=== PATIENT | female | born 1985 | race Caucasian/White ===

== ENCOUNTER 2016-03-14 13:09 | Outpatient (CLI) | payer MEDICAID ==
[2016-03-14 14:00] LABS: APPEARANCE,URINE CLOUDY; BILIRUBIN,URINE NEGATIVE (NEGATIVE); GLUCOSE, URINE 50 mg/dL (NEGATIVE); KETONES,URINE NEGATIVE (NEGATIVE); LEUKOCYTE ESTERASE,URINE LARGE (NEGATIVE); NITRITE,URINE NEGATIVE (NEGATIVE); PROTEIN,URINE 30 mg/dL (NEGATIVE); UROBILINOGEN,URINE NEGATIVE mg/dL (<2.0)
[2016-03-14 14:18] LABS: URINE BARBITURATES SCREEN NEGATIVE; URINE METHADONE SCREEN NEGATIVE; URINE PHENCYCLIDINE SCREEN NEGATIVE
[2016-03-14] MEDS ORDERED: HYDROXYZINE PAMOATE 50 MG CAPSULE ONE (14:27)
[2016-03-14] MEDS ORDERED: NITROFURANTOIN MONOHYD/M-CRYST 100 MG CAPSULE ONE (14:27)
--- NOTE | 2016-03-14 14:52 | Non Stress Test Report ---
Non Stress Test Datetime Report Generated by CPN: 03/14/2016 14:52 DEMOGRAPHIC EGA NST: 37.3 INDICATION Indication for Study: Ordered by Provider; Other MONITORING Monitor Explained: Monitor Explained; Test Explained; Patient Verbalized Understanding Time on Monitor: 03/14/2016 13:26 Time off Monitor: 03/14/2016 14:46 NST Duration: 80 NST INTERVENTIONS NST Interventions: PO Hydration; Reposition Patient Physician Notified NST: Dr. Kim BABY A: [id number] BABY A Movement : Present Contraction Frequency : irregular FHR Baseline : 145 Accelerations : 15X15 Decelerations : None Variability : Moderate 6-25bpm NST Review: Meets Criteria for Reactive NST NST Review and Verified By : EZIO Harley Results: Reactive NST REPORT Report Trigger: Send Report
[2016-03-14] MEDS ORDERED: NITROFURANTOIN MONOHYD/M-CRYST 100 MG CAPSULE PO ONE (15:00)
[2016-03-14] MEDS ORDERED: HYDROXYZINE PAMOATE 50 MG CAPSULE PO ONE (15:00)
--- NOTE | 2016-03-15 12:30 | L&D General Admission ---
General Admit Datetime Report Generated by CPN: 03/15/2016 12:30 INFORMATION EDC: 04/01/2016 00:00 (03/14/2016 13:15:Brooke Washburn RN) LMP: 05/26/2015 00:00 (03/14/2016 13:15:Brooke Washburn RN) : 4 (03/14/2016 13:15:Brooke Washburn RN) Para: 0 (03/14/2016 13:15:Brooke Washburn RN) Term: 0 (03/14/2016 13:15:Brooke Washburn RN) Spontaneous Abortions: 2 (03/14/2016 13:15:Brooke Washburn RN) Livin (03/14/2016 13:15:Brooke Washburn RN) Ectopic: 1 (03/14/2016 13:15:Brooke Washburn RN) Baby, Number in Womb: 1 (03/14/2016 13:15:Brooke Washburn RN) CARE Primary [employer]: [facility] (03/14/2016 13:15:Brooke Washburn RN) Adequate Care: Yes (03/14/2016 13:15:Brooke Washburn RN) Prepregnancy Weight (lb): 250 (03/14/2016 13:15:Brooke Washburn RN) Prepregnancy Weight (kg): 113.6 (03/14/2016 13:15:QS system process) Height (in): 70 (03/14/2016 13:22:QS system process) ALLERGIES Medication Allergy: Yes (03/14/2016 13:15:Brooke Washburn RN) Medication Allergies: Penicillins/SV/Anaphylaxis (03/14/2016); peanut/SV/Anaphylaxis (03/14/2016) (03/14/2016 13:22:QS system process) Latex Allergy: No Latex Allergies (03/14/2016 13:15:Brooke Washburn RN) Food Allergies: Peanut (03/14/2016 13:15:Brooke Washburn RN) Environmental Allergies: Peanut (03/14/2016 13:15:Brooke Washburn RN) COMMUNICATION Primary Language: South Sudanese (03/14/2016 13:15:Brooke Washburn RN) Medical Tx Preferred Language: [place] Sudanese (03/14/2016 13:15:Brooke Washburn RN) Communication Barrier(s): None (03/14/2016 13:15:Brooke Washburn RN) DRUG AND ALCOHOL USE Alcohol: No (03/14/2016 13:15:Brooke Washburn RN) Cigarettes: Never Smoker. [id number] (03/14/2016 13:15:Brooke Washburn RN) Marijuana: No (03/14/2016 13:15:Boroke Washburn RN) Cocaine: No (03/14/2016 13:15:Brooke Washburn RN) Other Illicit Drugs: No (03/14/2016 13:15:Brooke Washburn RN) VACCINE HISTORY Influenza Vaccine: Yes (03/14/2016 13:15:Brooke Washburn RN) Influenza Date: Jan 2016 (03/14/2016 13:15:Brooke Washburn RN) Pneumococcal Vaccine: No (03/14/2016 13:15:Brooke Washburn RN) Tetanus Vaccine: Uncertain (03/14/2016 13:15:Brooke Washburn RN) Tdap Vaccine: Uncertain (03/14/2016 13:15:Brooke Washburn RN) Hepatitis B Vaccine: Yes (03/14/2016 13:15:Brooke Washburn RN) Septic Tank Cleaner: [facility] (03/14/2016 13:15:Brooke Washburn RN) Feeding Preference: Breast (03/14/2016 13:15:Brooke Washburn RN) Benefit of Breast Feed Discussed: Yes (03/14/2016 13:15:Brooke Washburn RN) Circumcision: N/A (03/14/2016 13:15:Brooke Washburn RN) Classes Attended: No (03/14/2016 13:15:Brooke Washburn RN) Tubal Ligation: No (03/14/2016 13:15:Brooke Washburn RN) Tubal Authorization Signed: N/A (03/14/2016 13:15:Brooke Washburn RN) Consent: N/A (03/14/2016 13:15:Brooke Washburn RN) Consent Signed: N/A (03/14/2016 13:15:Brooke Washbunr RN) Pain Management Plans: Natural; Epidural (03/14/2016 13:15:Brooke Washburn RN) Plans for Labor and Delivery: None (03/14/2016 13:15:Brooke Washburn RN) Support Person: Dionte Von (03/14/2016 13:15:Brooke Washburn RN) Support Person Relationship: (03/14/2016 13:15:Brooke Washburn RN) Cultural/Spritual Practice: No (03/14/2016 13:15:Brooke Washburn RN) Spir/Cult Dietary Needs: No (03/14/2016 13:15:Brooke Washburn RN) LIVING SITUATION/DISCHARGE PLAN Living Arrangements: House (03/14/2016 13:15:Brooke Washburn RN) Adequate Access to:: Electric; Heat; Refrigeration; Plumbing/Running water; Phone; Transportation (03/14/2016 13:15:Brooke Washburn RN) Discharge Roving Or Yarn Color Checker Person: Dionte Longoria (03/14/2016 13:15:Brooke Washburn RN) Person to Help after Discharge: Dionte Longoria (03/14/2016 13:15:Brooke Washburn RN) Currently Using Commun Resources: No (03/14/2016 13:15:Brooke Washburn RN) Outside Agency/Land Title Examiner: No (03/14/2016 13:15:Brooke Washburn RN) Car Seat for Discharge: Yes (03/14/2016 13:15:Brooke Washburn RN) Adoption Requested: No (03/14/2016 13:15:Brooke Washburn RN) Pt Contact w/infant Post : N/A (03/14/2016 13:15:Brooke Washburn RN) LABS Blood Type: A Positive (03/14/2016 13:15:Brooke Washburn RN) Antibody Screen: Negative (03/14/2016 13:15:Brooke Washburn RN) Group Beta Strep: Negative (03/14/2016 13:15:Brooke Washburn RN) Gonorrhea: Negative (03/14/2016 13:15:Brooke Washburn RN) Chlamydia: Negative (03/14/2016 13:15:Brooke Washburn RN) RPR/VDRL: Nonreactive (03/14/2016 13:15:Brooke Washburn RN) Hepatitis B: Negative (03/14/2016 13:15:Brooke Washburn RN) Rubella: Immune (03/14/2016 13:15:Brooke Washburn RN) OB/PREVIOUS HISTORY LMP: 05/26/2015 00:00 (03/14/2016 13:15:Brooke Washburn RN) Current Procedures: Ultrasound (03/14/2016 13:15:Brooke Washburn RN) History of Previous : No (03/14/2016 13:15:Brooke Washburn RN) History of Gestational Diabetes: No (03/14/2016 13:15:Brooke Washburn RN) History of PIH: No (03/14/2016 13:15:Brooke Washburn RN) History of Incompetent Cervix: No (03/14/2016 13:15:Brooke Washburn RN) History of Placenta Previa/Abrup: No (03/14/2016 13:15:Brooke Washburn RN) History of Macrosomia: No (03/14/2016 13:15:Brooke Washburn RN) History of IUGR: No (03/14/2016 13:15:Brooke Washburn RN) History of Hemorrhage: No (03/14/2016 13:15:Brooke Washubrn RN) History of Loss/Stillborn: No (03/14/2016 13:15:Brooke Washburn RN) History of : No (03/14/2016 13:15:Brooke Washburn RN) History of D (Rh) Sensitization: No (03/14/2016 13:15:Brooke Washburn RN) History Recurrent Loss/Stillborn: No (03/14/2016 13:15:Brooke Washburn RN) History Depression/PP Depression: No (03/14/2016 13:15:Brooke Washburn RN) History of Uterine Anomaly/LOIDA: No (03/14/2016 13:15:Brooke Washburn RN) History of Infertility: No (03/14/2016 13:15:Brooke Washburn RN) History of ART Treatment: No (03/14/2016 13:15:Brooke Washburn RN) History of LOIDA: No (03/14/2016 13:15:Brooke Washburn RN) Comments Obstetrical History: 2006 Left salpingectomy - ruptured ectopic 2010 D_C (03/14/2016 13:15:Brooke Washburn RN) MEDICAL HISTORY Med Hx Diabetes: No (03/14/2016 13:15:Brooke Washburn RN) Med Hx Hypertension: No (03/14/2016 13:15:Brooke Washburn RN) Med Hx Heart Disease: No (03/14/2016 13:15:Brooke Washburn RN) Med Hx Autoimmune Disorder: No (03/14/2016 13:15:Brooke Washburn RN) Med Hx Kidney Disease/UTI: No (03/14/2016 13:15:Brooke Washburn RN) Med Hx Neurologic/Epilepsy: No (03/14/2016 13:15:Brooke Washburn RN) Med Hx Psychiatric Disorders: No (03/14/2016 13:15:Brooke Washburn RN) Med Hx Hepatitis/Liver Disease: No (03/14/2016 13:15:Brooke Washburn RN) Med Hx Varicosities/Phlebitis: No (03/14/2016 13:15:Brooke Washburn RN) Med Hx Thyroid Dysfunction: No (03/14/2016 13:15:Brooke Washburn RN) Med Hx Trauma/Violence: No (03/14/2016 13:15:Brooke Washburn RN) Med Hx Blood Transfusion: No (03/14/2016 13:15:Brooke Washburn RN) Med Hx Pulmonary (Asthma,TB): No (03/14/2016 13:15:Brooke Washburn RN) Med Hx Breast: No (03/14/2016 13:15:Brooke Washburn RN) Med Hx ALTERNATIVE ENERGY TECHNICIAN Surgery: No (03/14/2016 13:15:Brooke Washburn RN) Med Hx Hospitalization/Surgery: Yes (03/14/2016 13:15:Brooke Washburn RN) Med Hx Anesthetic Complications: No (03/14/2016 13:15:Brooke Washburn RN) Med Hx Abnormal Pap Smear: Yes (03/14/2016 13:15:Brooke Washburn RN) Other Medical Diseases: No (03/14/2016 13:15:Brooke Washburn RN) Med Hx Significant Family Hx: No (03/14/2016 13:15:Brooke Washburn RN) Details of Med/Surg Hx: abnormal pap [id number]; left salpingectomy - ruptured ectopic 2005 (03/14/2016 13:15:Brooke Washburn RN) INFECTIOUS HISTORY Inf Hx Gonorrhea: No (03/14/2016 13:15:Brooke Washburn RN) Inf Hx Chlamydia: No (03/14/2016 13:15:Brooke Washburn RN) Inf Hx Syphilis: No (03/14/2016 13:15:Brooke Washburn RN) Inf Hx HIV/AIDS: No (03/14/2016 13:15:Brooke Washburn RN) Inf Hx Human Papilloma Virus: No (03/14/2016 13:15:Brooke Washburn RN) Inf Hx Pt/Partner Genital Herpes: No (03/14/2016 13:15:Brooke Washburn RN) Inf Hx Tuberculosis/Exposure: No (03/14/2016 13:15:Brooke Washburn RN) Inf Hx Hepatitis B,C: No (03/14/2016 13:15:Brooke Washburn RN) Inf Hx Rash or Viral Illness: No (03/14/2016 13:15:Brooke Washburn RN) GENETIC HISTORY Gen Hx Age >=35 at JAMAL: No (03/14/2016 13:15:Brooke Washburn RN) Gen Hx Thalassemia: No (03/14/2016 13:15:Brooke Washburn RN) Gen Hx Congenital Heart Defect: No (03/14/2016 13:15:Brooke Washburn RN) Gen Hx Neural Tube Defect: No (03/14/2016 13:15:Brooke Washburn RN) Gen Hx Down's Syndrome: No (03/14/2016 13:15:Brooke Washburn RN) Gen Hx Low-Sachs: No (03/14/2016 13:15:Brooke Washburn RN) Gen Hx Lambret: No (03/14/2016 13:15:Brooke Washburn RN) Gen Hx Familial Dysautonomia: No (03/14/2016 13:15:Brooke Washburn RN) Gen Hx Sickle Cell Disease/Trait: No (03/14/2016 13:15:Brooke Washburn RN) Gen Hx Hemophilia/Blood Disorder: No (03/14/2016 13:15:Brooke Washburn RN) Gen Hx Muscular Dystrophy: No (03/14/2016 13:15:Brooke Washburn RN) Gen Hx Cystic Fibrosis: No (03/14/2016 13:15:Brooke Washburn RN) Gen Hx Huntingtons Chorea: No (03/14/2016 13:15:Brooke Washburn RN) Gen Hx Mental Retardation/Autism: No (03/14/2016 13:15:Brooke Washburn RN) Gen Hx Tested for Fragile X: No (03/14/2016 13:15:Brooke Washburn RN) Gen Hx Other Inher/Chromosomal: No (03/14/2016 13:15:Brooke Washburn RN) Gen Hx Maternal Metabolic DO: No (03/14/2016 13:15:Brooke Washburn RN) Gen Hx Pt Father or FOB Defect: No (03/14/2016 13:15:Brooke Washburn RN) Gen Hx Other Genetic History: No (03/14/2016 13:15:Brooke Washburn RN) Gen Hx Drugs/Meds since LMP: No (03/14/2016 13:15:Brooke Washburn RN) Details of Genetic History: current being monitored at [facility] for arrhythimia (bigeminy) - resolved, she states (03/14/2016 13:15:Brooke Washburn RN)
--- NOTE | 2016-03-15 12:30 | Antepartum Discharge Summary ---
Antepartum DC Datetime Report Generated by CPN: 03/15/2016 12:29 DIET/ACTIVITY/RESTRICTIONS Diet: Regular (03/14/2016 14:50:Brooke Washburn RN) Activity: Normal Activity (03/14/2016 14:50:Brooke Washburn, RN) TEACHING/INSTRUCTIONS/REFERRALS Instructions Given To: patient and friend (03/14/2016 14:50:Brooke Washburn RN) Instructions Understood: Patient Verbalized Understanding; Support Person Verbalized Understanding (03/14/2016 14:50:Brooke Washburn RN) Referrals: None (03/14/2016 14:50:Brooke Washburn RN) Educational Materials- Other: kick counyts and term pre cautions (03/14/2016 14:50:Brooke Washburn RN) DISCHARGE INFORMATION Discharge Date/Time: 03/14/2016 14:55 (03/14/2016 14:50:Brooke Washburn RN) Discharged To: Home (03/14/2016 14:50:Brooke Washburn RN) Discharge Provider Name: Dr. Kim (03/14/2016 14:50:Brooke Washburn RN) Accompanied By: friend (03/14/2016 14:50:Brooke Washburn RN) Discharge Method: Ambulatory (03/14/2016 14:50:Brooke Washburn RN) Condition: Stable (03/14/2016 14:50:Brooke Washburn RN) FOLLOW UP INFORMATION Follow Up With: [facility] (03/14/2016 14:50:Brooke Washburn RN) Follow Up On: Tomorrow (03/14/2016 14:50:Brooke Washburn RN) Follow Up Phone Number: [facility] - (03/14/2016 14:50:Brooke Washburn RN)
--- NOTE | 2016-03-15 12:30 | L&D Current Admission ---
Current Admit Datetime Report Generated by CPN: 03/15/2016 12:30 ADMISSION INFORMATION Chief Complaint: Contractions (03/14/2016 13:36:Brooke Washburn, EZIO)
--- NOTE | 2016-03-15 12:31 | L&D Discharge Summary ---
OB Discharge Summary Datetime Report Generated by CPN: 03/15/2016 12:31 DISCHARGE DIAGNOSIS Diagnosis/Symptoms: Other Diagnoses/Symptoms Other: false labor; UTI Gestation: 37.3 Number of Babies in Womb: 1 Parity: 0 DIET/ACTIVITY/RESTRICTIONS Diet: Regular Activity: Normal Activity TEACHING/INSTRUCTIONS/REFERRALS Instructions Given To: patient and friend Instructions Understood: Patient Verbalized Understanding; Support Person Verbalized Understanding Referrals: None Educational Materials- Other: kick counyts and term pre cautions DISCHARGE INFORMATION Discharge Date/Time: 03/14/2016 14:55 Discharged To: Home Discharge Provider Name: Dr. Kim Accompanied By: friend Discharge Method: Ambulatory Condition: Stable FOLLOW UP INFORMATION Follow Up With: [facility] Follow Up On: Tomorrow Follow Up Phone Number: [facility] -
--- NOTE | 2016-03-15 12:31 | L&D Flow Sheet ---
LD Flowsheet Datetime Report Generated by CPN: 03/15/2016 12:31 Datetime: 03/14/2016 14:46 Uterine Activity Monitor Mode: External; Palpation (Brooke Washburn RN) Quality: Mild (Brooke Washburn RN) Resting Tone (Palpate): Relaxed (Brooke Washburn RN) Contraction Comments: no contractions noted on monitor; patient reports abdominal tightening (Brooke Washburn RN) Assessment A Monitor Mode: External US (Brooke Washburn, RN) FHR Baseline Rate : 140 (Brooke Washburn, RN) FHR Baseline Changes: No Baseline Change (Brooke Washburn, RN) Variability: Moderate 6-25 bpm (Brooke Washburn, RN) Accelerations: 15X15 (Brooke Washburn, RN) Decelerations: None (Brooke Washburn, RN) Datetime: 03/14/2016 14:44 Medications Antibiotics: Other Antibiotic @ Nitrofurantoin 100 mg PO one tablet (Annotations: Given with food) (Brooke Washburn, RN) Datetime: 03/14/2016 14:40 Vaginal Exam Dilatation (cm): 1.0 (Brooke Washburn RN) Effacement (%): 40 (Brooke Washburn RN) Station: -2 (Brooke Washburn RN) Exam by: Sadiq Washburn RN (Brooke Washburn RN) Vaginal Bleeding: None (Brooke Washburn RN) Cervix, Consistency: Soft (Brooke Washburn RN) Cervix, Position: Midposition (Brooke Washburn RN) Datetime: 03/14/2016 14:33 Antiemetics/Antacids: Vistaril (mg) @ 50 one tablet (Brooke Washburn, RN) Datetime: 03/14/2016 14:30 Uterine Activity Monitor Mode: External; Palpation (Brooke Washburn, EZIO) Frequency (min): irregular (Brooke Washburn RN) Quality: Mild (Brooke aWshburn RN) Resting Tone (Palpate): Relaxed (Brooke Washburn RN) Contraction Comments: no contractions noted on monitor; patient reports abdominal tightening (Brooke Washburn, EZIO) Assessment A Monitor Mode: External US (Brooke Waterbury, RN) FHR Baseline Rate : 145 (Brooke Maddison, RN) FHR Baseline Changes: No Baseline Change (Brooke Waterbury, RN) Variability: Moderate 6-25 bpm (Brooke Maddison, RN) Accelerations: 15X15 (Brooke Waterbury, RN) Decelerations: None (Brooke Maddison, RN) Datetime: 03/14/2016 14:28 Vital Signs Stage of : Antepartum (Brooke Waterbury, RN) NBP Sys/Anabela/Mean (mmHg): 118 (QS system process) : 55 (QS system process) : 75 (QS system process) Pulse: 97 (QS system process) Respirations: 14 (Brooke Waterbury, RN) LaborFlag: Antepartum (QS system process) Datetime: 03/14/2016 14:15 Vital Signs Stage of : Antepartum (Brooke Washburn RN) Communication Communication: Call/Page Placed to Provider (Brooke Washburn RN) Notification Reason: Status Update; Status; Labor Status; Membrane Status; Uterine Activity; Maternal Vital Sign Change; Lab/Diagnostic Study (Brooke Washburn RN) Communication Comments: Dr. Kim called and notified of OB history inlcuding MFM monitoring for arrythmia, chief complaint of abdominal cramping/tightening, reactive NST, urinaylsis results: protein 30, glucose 50, small blood, large leukocytes, stable within normal limit vital signs, and irregular contraction pattern. Orders received to check cervical dilation and discharge patient home to self care. Also ordered to give Vistaril 50 mg PO one tablet and Macrobid 100 mg PO one tablet and have patient followup in provider's office for continued treatment of UTI. (Brooke Washburn RN) Datetime: 03/14/2016 14:00 Assessment A Monitor Mode: External US (Brooke Washburn RN) FHR Baseline Rate : 145 (Brooke Washburn RN) FHR Baseline Changes: No Baseline Change (Brooke Washburn RN) Variability: Moderate 6-25 bpm (Brooke Washburn RN) Accelerations: 15X15 (Brooke Washburn RN) Decelerations: None (Brooke Washburn RN) Comments: reports positive movement (Brooke Washburn RN) Datetime: 03/14/2016 13:58 Vital Signs Stage of : Antepartum (Brooke Medinaard, RN) NBP Sys/Anabela/Mean (mmHg): 107 (QS system process) : 58 (QS system process) : 79 (QS system process) Pulse: 101 (QS system process) Respirations: 16 (Brooke Maddison, RN) LaborFlag: Antepartum (QS system process) Datetime: 03/14/2016 13:36 Monitor Interventions for UA: Deepstep Adjusted (Brooke Waterbury, RN) Assessment A Monitor Mode: External US (Brooke Waterbury, ) Monitor Interventions for FHR: Ultrasound Adjusted ([facility], ) Variability: Moderate 6-25 bpm ([facility], ) Accelerations: 15X15 ([facility], ) Decelerations: None ([facility], ) Pain [facility] Pain Presence: Intermittent ([facility], [facility] Pain Type: Contraction; Pressure (Annotations: abdominal tightening ) ([facility], [facility] Pain Location: Abdomen; Back ([facility], [facility] Pain Goal: 1 ([facility], ) Pain Relief Measures: Comfort Measures ([facility], ) Pain Coping: Talking Through Contractions ([facility], ) Vaginal Bleeding: None ([facility], ) Maternal Assessment Level of Consciousness: Fully Conscious (Brooke Washburn, EZIO) DTR's/Clonus: DTRs 2+; No Clonus (Brooke Washburn, EZIO) Headache: Denies (Brooke Washburn, RN) Breath Sounds, Left: Clear and Equal (Brooke Washburn, RN) Breath Sounds, Right: Clear and Equal (Brooke Washburn, RN) Nausea/Vomiting: Denies (Brooke Washburn, EZIO) RUQ Epigastric Pain: Denies (Brooke Washburn, RN) Patient Care Oxygen Method: Room Air (Brooke Washburn, EZIO) Patient Position/Activity: Left Tilt; Low Fowlers (Brooke Washburn, EZIO) Comfort Measures: Breathing/Relaxation; Family Support (Brooke Washburn, EZIO) I/O Interventions: Clear Liquids Given (Brooke Washburn, EZIO) Teaching Instructional Method: Verbal; Patient Instructed; Family/Support Person Instructed; Verbalized Understanding (Brooke Washburn RN) Plan of Care: Plan of Care Discussed (Brooke Washburn RN) Unit Routine: [place] to Room; Call Christiansen; Bed; Visiting Policy; Waiting Areas; Phone/Cell Phone Use; Unit Personnel; Handwashing; Flu/Illness Precautions; Monitoring; IV Pumps; Safety/Fall Risk Prevention; Diet/Nutrition Services; Bathroom Privileges (Brooke Washburn RN) Pain Management: Pain Scale/Goals; Comfort Measures (Brooke Washburn RN) Related: Common Discomforts of ; Maternal Physical Changes; Maternal Emotional Changes; Nutrition; Hydration; Activity and Rest (Brooke Washburn RN) LaborFlag: Antepartum (QS system process) Datetime: 03/14/2016 13:29 Vital Signs Stage of : Antepartum (Brooke Washburn RN) NBP Sys/Anabela/Mean (mmHg): 116 (QS system process) : 65 (QS system process) : 84 (QS system process) Pulse: 110 (QS system process) Respirations: 14 (Brooke Washburn RN) LaborFlag: Antepartum (QS system process) Datetime: 03/14/2016 13:21 Vital Signs Stage of : Labor (Brooke Washburn, RN)
--- NOTE | 2016-03-16 06:12 | L&D Current Admission ---
Current Admit Datetime Report Generated by CPN: 03/16/2016 06:00 ADMISSION INFORMATION Chief Complaint: Contractions (03/14/2016 13:36:Brooke Washburn, EZIO)
--- NOTE | 2016-03-16 06:12 | L&D General Admission ---
General Admit Datetime Report Generated by CPN: 03/16/2016 06:00 INFORMATION Patient Age: 30 (02/23/2016 10:02:QS system process) EDC: 04/01/2016 00:00 (03/14/2016 13:15:Brooke Washburn RN) LMP: 05/26/2015 00:00 (03/14/2016 13:15:Brooke Washburn RN) : 4 (03/14/2016 13:15:Brooke Washburn RN) Para: 0 (03/14/2016 13:15:Brooke Washburn RN) Term: 0 (03/14/2016 13:15:Brooke Washburn RN) Spontaneous Abortions: 2 (03/14/2016 13:15:Brooke Washburn RN) Livin (03/14/2016 13:15:Brooke Washburn RN) Ectopic: 1 (03/14/2016 13:15:Brooke Washburn RN) Baby, Number in Womb: 1 (03/14/2016 13:15:Brooke Washburn RN) CARE [facility] (03/14/2016 13:15:Brooke Washburn RN) Adequate Care: Yes (03/14/2016 13:15:Brooke Washburn RN) Prepregnancy Weight (lb): 250 (03/14/2016 13:15:Brooke Washburn RN) Prepregnancy Weight (kg): 113.6 (03/14/2016 13:15:QS system process) Height (in): 70 (03/14/2016 13:22:QS system process) ALLERGIES Medication Allergy: Yes (03/14/2016 13:15:Brooke Washburn RN) Medication Allergies: Penicillins/SV/Anaphylaxis (03/14/2016); peanut/SV/Anaphylaxis (03/14/2016) (03/14/2016 13:22:QS system process) Latex Allergy: No Latex Allergies (03/14/2016 13:15:Brooke Washburn RN) Food Allergies: Peanut (03/14/2016 13:15:Brooke Washburn RN) Environmental Allergies: Peanut (03/14/2016 13:15:Brooke Washburn RN) COMMUNICATION Primary Language: Cay[place] Islander (03/14/2016 13:15:Brooke Washburn RN) Medical Tx Preferred Language: [place] Islander (03/14/2016 13:15:Brooke Washburn RN) Communication Barrier(s): None (03/14/2016 13:15:Brooke Washburn RN) DEMOGRAPHICS Address: [address] [place] [id number] (02/23/2016 10:02:QS system process) Zipcode: [address] (02/23/2016 10:02:QS system process) Home (02/23/2016 10:02:QS system process) SSN: [id number] (02/23/2016 10:02:QS system process) Next of Kin Name: DIONTE LONGORIA (02/23/2016 10:02:QS system process) Next of Kin (02/23/2016 10:02:QS system process) Next of Kin Relationship: SPO (02/23/2016 10:02:QS system process) Date of : 1985 (02/23/2016 10:02:QS system process) Marital Status: (02/23/2016 10:02:QS system process) Sex: Female (02/23/2016 10:02:QS system process) Race: (02/23/2016 10:02:QS system process) Ethnicity: Non- or (02/23/2016 10:02:QS system process) Hoahaoism: Methodist (02/23/2016 10:02:QS system process) DRUG AND ALCOHOL USE Alcohol: No (03/14/2016 13:15:Brooke Washburn RN) Cigarettes: Never Smoker. [id number] (03/14/2016 13:15:Brooke Washburn RN) Marijuana: No (03/14/2016 13:15:Brooke Washburn RN) Cocaine: No (03/14/2016 13:15:Brooke Washburn RN) Other Illicit Drugs: No (03/14/2016 13:15:Brooke Washburn RN) VACCINE HISTORY Influenza Vaccine: Yes (03/14/2016 13:15:Brooke Washburn RN) Influenza Date: Jan 2016 (03/14/2016 13:15:Brooke Washburn RN) Pneumococcal Vaccine: No (03/14/2016 13:15:Brooke Washburn RN) Tetanus Vaccine: Uncertain (03/14/2016 13:15:Brooke Washburn RN) Tdap Vaccine: Uncertain (03/14/2016 13:15:Brooke Washburn RN) Hepatitis B Vaccine: Yes (03/14/2016 13:15:Brooke Washburn RN) Scientific Software Developer: [facility] (03/14/2016 13:15:Brooke Washburn RN) Feeding Preference: Breast (03/14/2016 13:15:Brooke Washburn RN) Benefit of Breast Feed Discussed: Yes (03/14/2016 13:15:Brooke Washburn RN) Circumcision: N/A (03/14/2016 13:15:Brooke Washburn RN) Classes Attended: No (03/14/2016 13:15:Brooke Washburn RN) Tubal Ligation: No (03/14/2016 13:15:Brooke Washburn RN) Tubal Authorization Signed: N/A (03/14/2016 13:15:Brooke Washburn RN) Consent: N/A (03/14/2016 13:15:Brooke Washburn RN) Consent Signed: N/A (03/14/2016 13:15:Brooke Washburn RN) Pain Management Plans: Natural; Epidural (03/14/2016 13:15:Brooke Washburn RN) Plans for Labor and Delivery: None (03/14/2016 13:15:Brooke Washburn RN) Support Person: Dionte Longoria (03/14/2016 13:15:Brooke Washburn RN) Support Person Relationship: (03/14/2016 13:15:Brooke Washburn RN) Cultural/Spritual Practice: No (03/14/2016 13:15:Brooke Washburn RN) Spir/Cult Dietary Needs: No (03/14/2016 13:15:Brooke Washburn RN) LIVING SITUATION/DISCHARGE PLAN Living Arrangements: House (03/14/2016 13:15:Brooke Washburn RN) Adequate Access to:: Electric; Heat; Refrigeration; Plumbing/Running water; Phone; Transportation (03/14/2016 13:15:Brooke Washburn RN) Discharge Electronics Research Engineer Person: Dionte Longoria (03/14/2016 13:15:Brooke Washburn RN) Person to Help after Discharge: Dionte Hartden (03/14/2016 13:15:Brooke Washburn RN) Currently Using Commun Resources: No (03/14/2016 13:15:Brooke Washburn RN) Outside Agency/Manager Pulmonary: No (03/14/2016 13:15:Brooke Washburn RN) Car Seat for Discharge: Yes (03/14/2016 13:15:Brooke Washburn RN) Adoption Requested: No (03/14/2016 13:15:Brooke Washburn RN) Pt Contact w/infant Post : N/A (03/14/2016 13:15:Brooke Washburn RN) LABS Blood Type: A Positive (03/14/2016 13:15:Brooke Washburn RN) Antibody Screen: Negative (03/14/2016 13:15:Brooke Washburn RN) Group Beta Strep: Negative (03/14/2016 13:15:Brooke Washburn RN) Gonorrhea: Negative (03/14/2016 13:15:Brooke Washburn RN) Chlamydia: Negative (03/14/2016 13:15:Brooke Washburn RN) RPR/VDRL: Nonreactive (03/14/2016 13:15:Brooke Wsahburn RN) Hepatitis B: Negative (03/14/2016 13:15:Brooke Washburn RN) Rubella: Immune (03/14/2016 13:15:Brooke Washburn RN) OB/PREVIOUS HISTORY LMP: 05/26/2015 00:00 (03/14/2016 13:15:Brooke Washburn RN) Current Procedures: Ultrasound (03/14/2016 13:15:Brooke Washburn RN) History of Previous : No (03/14/2016 13:15:Brooke Washburn RN) History of Gestational Diabetes: No (03/14/2016 13:15:Brooke Washburn RN) History of PIH: No (03/14/2016 13:15:Brooke Washburn RN) History of Incompetent Cervix: No (03/14/2016 13:15:Brooke Washburn RN) History of Placenta Previa/Abrup: No (03/14/2016 13:15:Brooke Washburn RN) History of Macrosomia: No (03/14/2016 13:15:Brooke Washburn RN) History of IUGR: No (03/14/2016 13:15:Brooke Washburn RN) History of Hemorrhage: No (03/14/2016 13:15:Brooke Washburn RN) History of Loss/Stillborn: No (03/14/2016 13:15:Brooke Washburn RN) History of : No (03/14/2016 13:15:Brooke Washburn RN) History of D (Rh) Sensitization: No (03/14/2016 13:15:Brooke Washburn RN) History Recurrent Loss/Stillborn: No (03/14/2016 13:15:Brooke Washburn RN) History Depression/PP Depression: No (03/14/2016 13:15:Brooke Washburn RN) History of Uterine Anomaly/LOIDA: No (03/14/2016 13:15:Brooke Washburn RN) History of Infertility: No (03/14/2016 13:15:Brooke Washburn RN) History of ART Treatment: No (03/14/2016 13:15:Brooke Washburn RN) History of LOIDA: No (03/14/2016 13:15:Brooke Washburn RN) Comments Obstetrical History: 2006 Left salpingectomy - ruptured ectopic 2010 D_C (03/14/2016 13:15:Brooke Washburn RN) MEDICAL HISTORY Med Hx Diabetes: No (03/14/2016 13:15:Brooke Washburn RN) Med Hx Hypertension: No (03/14/2016 13:15:Brooke Washburn RN) Med Hx Heart Disease: No (03/14/2016 13:15:Brooke Washburn RN) Med Hx Autoimmune Disorder: No (03/14/2016 13:15:Brooke Washburn RN) Med Hx Kidney Disease/UTI: No (03/14/2016 13:15:Brooke Washburn RN) Med Hx Neurologic/Epilepsy: No (03/14/2016 13:15:Brooke Washburn RN) Med Hx Psychiatric Disorders: No (03/14/2016 13:15:Brooke Washburn RN) Med Hx Hepatitis/Liver Disease: No (03/14/2016 13:15:Brooke Washburn RN) Med Hx Varicosities/Phlebitis: No (03/14/2016 13:15:Brooke Washburn RN) Med Hx Thyroid Dysfunction: No (03/14/2016 13:15:Brooke Washburn RN) Med Hx Trauma/Violence: No (03/14/2016 13:15:Brooke Washburn RN) Med Hx Blood Transfusion: No (03/14/2016 13:15:Brooke Washburn RN) Med Hx Pulmonary (Asthma,TB): No (03/14/2016 13:15:Brooke Washburn RN) Med Hx Breast: No (03/14/2016 13:15:Brooke Washburn RN) Med Hx MANAGER MASSAGE DEPARTMENT Surgery: No (03/14/2016 13:15:Brooke Washburn RN) Med Hx Hospitalization/Surgery: Yes (03/14/2016 13:15:Brooke Washburn RN) Med Hx Anesthetic Complications: No (03/14/2016 13:15:Brooke Washburn RN) Med Hx Abnormal Pap Smear: Yes (03/14/2016 13:15:Brooke Washburn RN) Other Medical Diseases: No (03/14/2016 13:15:Brooke Washburn RN) Med Hx Significant Family Hx: No (03/14/2016 13:15:Brooke Washburn RN) Details of Med/Surg Hx: abnormal pap [id number]; left salpingectomy - ruptured ectopic 2006 (03/14/2016 13:15:Brooke Washburn RN) INFECTIOUS HISTORY Inf Hx Gonorrhea: No (03/14/2016 13:15:Brooke Washburn RN) Inf Hx Chlamydia: No (03/14/2016 13:15:Brooke Washburn RN) Inf Hx Syphilis: No (03/14/2016 13:15:Brooke Washburn RN) Inf Hx HIV/AIDS: No (03/14/2016 13:15:Brooke Washburn RN) Inf Hx Human Papilloma Virus: No (03/14/2016 13:15:Brooke Washburn RN) Inf Hx Pt/Partner Genital Herpes: No (03/14/2016 13:15:Brooke Washburn RN) Inf Hx Tuberculosis/Exposure: No (03/14/2016 13:15:Brooke Washburn RN) Inf Hx Hepatitis B,C: No (03/14/2016 13:15:Brooke Washburn RN) Inf Hx Rash or Viral Illness: No (03/14/2016 13:15:Brooke Washburn RN) GENETIC HISTORY Gen Hx Age >=35 at JAMAL: No (03/14/2016 13:15:Brooke Washburn RN) Gen Hx Thalassemia: No (03/14/2016 13:15:Brooke Washburn RN) Gen Hx Congenital Heart Defect: No (03/14/2016 13:15:Brooke Washburn RN) Gen Hx Neural Tube Defect: No (03/14/2016 13:15:Brooke Washburn RN) Gen Hx Down's Syndrome: No (03/14/2016 13:15:Brooke Washburn RN) Gen Hx Low-Sachs: No (03/14/2016 13:15:Brooke Washburn RN) Gen Hx Lambert: No (03/14/2016 13:15:Brooke Washburn RN) Gen Hx Familial Dysautonomia: No (03/14/2016 13:15:Brooke Washburn RN) Gen Hx Sickle Cell Disease/Trait: No (03/14/2016 13:15:Brooke Washburn RN) Gen Hx Hemophilia/Blood Disorder: No (03/14/2016 13:15:Brooke Washburn RN) Gen Hx Muscular Dystrophy: No (03/14/2016 13:15:Brooke Washburn RN) Gen Hx Cystic Fibrosis: No (03/14/2016 13:15:Brooke Washburn RN) Gen Hx Huntingtons Chorea: No (03/14/2016 13:15:Brooke Washburn RN) Gen Hx Mental Retardation/Autism: No (03/14/2016 13:15:Brooke Washburn RN) Gen Hx Tested for Fragile X: No (03/14/2016 13:15:Brooke Washburn RN) Gen Hx Other Inher/Chromosomal: No (03/14/2016 13:15:Brooke Washburn RN) Gen Hx Maternal Metabolic DO: No (03/14/2016 13:15:Brooke Washburn RN) Gen Hx Pt Father or FOB Defect: No (03/14/2016 13:15:Brooke Washburn RN) Gen Hx Other Genetic History: No (03/14/2016 13:15:Brooke Washburn RN) Gen Hx Drugs/Meds since LMP: No (03/14/2016 13:15:Brooke Washburn RN) Details of Genetic History: 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
--- NOTE | 2016-03-17 06:12 | L&D General Admission ---
General Admit Datetime Report Generated by N: 03/17/2016 06:00 INFORMATION Patient Age: 30 (02/23/2016 10:02:QS system process) EDC: 04/01/2016 00:00 (03/14/2016 13:15:Brooke Washburn RN) LMP: 05/26/2015 00:00 (03/14/2016 13:15:Brooke Washburn RN) : 4 (03/14/2016 13:15:Brooke Washburn RN) Para: 0 (03/14/2016 13:15:Brooke Washburn RN) Term: 0 (03/14/2016 13:15:Brooke Washburn RN) Spontaneous Abortions: 2 (03/14/2016 13:15:Brooke Washburn RN) Livin (03/14/2016 13:15:Brooke Washburn RN) Ectopic: 1 (03/14/2016 13:15:Brooke Washburn RN) Baby, Number in Womb: 1 (03/14/2016 13:15:Brooke Washburn RN) CARE Primary Presales Senior Specialist: [email or web address] (03/14/2016 13:15:Brooke Washburn RN) Adequate Care: Yes (03/14/2016 13:15:Brooke Washburn RN) Prepregnancy Weight (lb): 250 (03/14/2016 13:15:Brooke Washburn RN) Prepregnancy Weight (kg): 113.6 (03/14/2016 13:15:QS system process) Height (in): 70 (03/14/2016 13:22:QS system process) ALLERGIES Medication Allergy: Yes (03/14/2016 13:15:Brooke Washburn RN) Medication Allergies: Penicillins/SV/Anaphylaxis (03/14/2016); peanut/SV/Anaphylaxis (03/14/2016) (03/14/2016 13:22:QS system process) Latex Allergy: No Latex Allergies (03/14/2016 13:15:Brooke Washburn RN) Food Allergies: Peanut (03/14/2016 13:15:Brooke Washburn RN) Environmental Allergies: Peanut (03/14/2016 13:15:Brooke Washburn RN) COMMUNICATION Primary Language: Ghanaian (03/14/2016 13:15:Brooke Washburn RN) Medical Tx Preferred Language: Ghanaian (03/14/2016 13:15:Brooke Washburn RN) Communication Barrier(s): None (03/14/2016 13:15:Brooke Washburn RN) DEMOGRAPHICS Address: [address] [place] [id number] (02/23/2016 10:02:QS system process) Zipcode: [address] (02/23/2016 10:02:QS system process) Home (02/23/2016 10:02:QS system process) SSN: [id number] (02/23/2016 10:02:QS system process) Next of Kin Name: DIONTE LONGORIA (02/23/2016 10:02:QS system process) Next of Kin (02/23/2016 10:02:QS system process) Next of Kin Relationship: SPO (02/23/2016 10:02:QS system process) Date of : 1985 (02/23/2016 10:02:QS system process) Marital Status: (02/23/2016 10:02:QS system process) Sex: Female (02/23/2016 10:02:QS system process) Race: (02/23/2016 10:02:QS system process) Ethnicity: Non- or (02/23/2016 10:02:QS system process) Latter Day: Holiness (02/23/2016 10:02:QS system process) DRUG AND ALCOHOL USE Alcohol: No (03/14/2016 13:15:Brooke Washburn RN) Cigarettes: Never Smoker. [id number] (03/14/2016 13:15:Brooke Washburn RN) Marijuana: No (03/14/2016 13:15:Brooke Washburn RN) Cocaine: No (03/14/2016 13:15:Brooke Washburn RN) Other Illicit Drugs: No (03/14/2016 13:15:Brooke Washburn RN) VACCINE HISTORY Influenza Vaccine: Yes (03/14/2016 13:15:Brooke Washburn RN) Influenza Date: Jan 2016 (03/14/2016 13:15:Brooke Washburn RN) Pneumococcal Vaccine: No (03/14/2016 13:15:Brooke Washburn RN) Tetanus Vaccine: Uncertain (03/14/2016 13:15:Brooke Washburn RN) Tdap Vaccine: Uncertain (03/14/2016 13:15:Brooke Washburn RN) Hepatitis B Vaccine: Yes (03/14/2016 13:15:Brooke Washburn RN) Calibration Technician: [facility] (03/14/2016 13:15:Brooke Washburn RN) Feeding Preference: Breast (03/14/2016 13:15:Brooke Washburn RN) Benefit of Breast Feed Discussed: Yes (03/14/2016 13:15:Brooke Washburn RN) Circumcision: N/A (03/14/2016 13:15:Brooke Washburn RN) Classes Attended: No (03/14/2016 13:15:Brooke Washburn RN) Tubal Ligation: No (03/14/2016 13:15:Brooke Washburn RN) Tubal Authorization Signed: N/A (03/14/2016 13:15:Brooke Washburn RN) Consent: N/A (03/14/2016 13:15:Brooke Washburn RN) Consent Signed: N/A (03/14/2016 13:15:Brooke Washburn RN) Pain Management Plans: Natural; Epidural (03/14/2016 13:15:Brooke Washburn RN) Plans for Labor and Delivery: None (03/14/2016 13:15:Brooke Washburn RN) Support Person: Dionte Longoria (03/14/2016 13:15:Brooke Washburn RN) Support Person Relationship: (03/14/2016 13:15:Brooke Washburn RN) Cultural/Spritual Practice: No (03/14/2016 13:15:Brooke Washburn RN) Spir/Cult Dietary Needs: No (03/14/2016 13:15:Brooke Washburn RN) LIVING SITUATION/DISCHARGE PLAN Living Arrangements: House (03/14/2016 13:15:Brooke Washburn RN) Adequate Access to:: Electric; Heat; Refrigeration; Plumbing/Running water; Phone; Transportation (03/14/2016 13:15:Brooke Washburn RN) Discharge Machine Farmworker Person: Dionte Longoria (03/14/2016 13:15:Brooke Washburn RN) Person to Help after Discharge: Dionte Hartden (03/14/2016 13:15:Brooke Washburn RN) Currently Using Commun Resources: No (03/14/2016 13:15:Brooke Washbrun RN) Outside Agency/Fisheries Officer: No (03/14/2016 13:15:Brooke Washburn RN) Car Seat for Discharge: Yes (03/14/2016 13:15:Brooke Washburn RN) Adoption Requested: No (03/14/2016 13:15:Brooke Washburn RN) Pt Contact w/infant Post : N/A (03/14/2016 13:15:Brooke Washburn RN) LABS Blood Type: A Positive (03/14/2016 13:15:Brooke Washburn RN) Antibody Screen: Negative (03/14/2016 13:15:Brooke Washburn RN) Group Beta Strep: Negative (03/14/2016 13:15:Brooke Washburn RN) Gonorrhea: Negative (03/14/2016 13:15:Brooke Washburn RN) Chlamydia: Negative (03/14/2016 13:15:Brooke Washburn RN) RPR/VDRL: Nonreactive (03/14/2016 13:15:Brooke Washburn RN) Hepatitis B: Negative (03/14/2016 13:15:Brooke Washburn RN) Rubella: Immune (03/14/2016 13:15:Brooke Washburn RN) OB/PREVIOUS HISTORY LMP: 05/26/2015 00:00 (03/14/2016 13:15:Brooke Washburn RN) Current Procedures: Ultrasound (03/14/2016 13:15:Brooke Washburn RN) History of Previous : No (03/14/2016 13:15:Brooke Washburn RN) History of Gestational Diabetes: No (03/14/2016 13:15:Brooke Washburn RN) History of PIH: No (03/14/2016 13:15:Brooke Washburn RN) History of Incompetent Cervix: No (03/14/2016 13:15:Brooke Washburn RN) History of Placenta Previa/Abrup: No (03/14/2016 13:15:Brooke Washburn RN) History of Macrosomia: No (03/14/2016 13:15:Brooke Washburn RN) History of IUGR: No (03/14/2016 13:15:Brooke Washburn RN) History of Hemorrhage: No (03/14/2016 13:15:Brooke Washburn RN) History of Loss/Stillborn: No (03/14/2016 13:15:Brooke Washburn RN) History of : No (03/14/2016 13:15:Brooke Washburn RN) History of D (Rh) Sensitization: No (03/14/2016 13:15:Brooke Washburn RN) History Recurrent Loss/Stillborn: No (03/14/2016 13:15:Brooke Washburn RN) History Depression/PP Depression: No (03/14/2016 13:15:Brooke Washburn RN) History of Uterine Anomaly/LOIDA: No (03/14/2016 13:15:Brooke Washburn RN) History of Infertility: No (03/14/2016 13:15:Brooke Washburn RN) History of ART Treatment: No (03/14/2016 13:15:Brooke Washburn RN) History of LOIDA: No (03/14/2016 13:15:Brooke Washburn RN) Comments Obstetrical History: 2006 Left salpingectomy - ruptured ectopic 2010 D_C (03/14/2016 13:15:Brooke Washburn RN) MEDICAL HISTORY Med Hx Diabetes: No (03/14/2016 13:15:Brooke Washburn RN) Med Hx Hypertension: No (03/14/2016 13:15:Brooke Washburn RN) Med Hx Heart Disease: No (03/14/2016 13:15:Brooke Washburn RN) Med Hx Autoimmune Disorder: No (03/14/2016 13:15:Brooke Washburn RN) Med Hx Kidney Disease/UTI: No (03/14/2016 13:15:Brooke Washburn RN) Med Hx Neurologic/Epilepsy: No (03/14/2016 13:15:Brooke Washburn RN) Med Hx Psychiatric Disorders: No (03/14/2016 13:15:Brooke Washburn RN) Med Hx Hepatitis/Liver Disease: No (03/14/2016 13:15:Brooke Washburn RN) Med Hx Varicosities/Phlebitis: No (03/14/2016 13:15:Brooke Washburn RN) Med Hx Thyroid Dysfunction: No (03/14/2016 13:15:Brooke Washburn RN) Med Hx Trauma/Violence: No (03/14/2016 13:15:Brooke Washburn RN) Med Hx Blood Transfusion: No (03/14/2016 13:15:Brooke Washburn RN) Med Hx Pulmonary (Asthma,TB): No (03/14/2016 13:15:Brooke Washburn RN) Med Hx Breast: No (03/14/2016 13:15:Brooke Washburn RN) Med Hx COLLECTION ADMINISTRATOR Surgery: No (03/14/2016 13:15:Brooke Washburn RN) Med Hx Hospitalization/Surgery: Yes (03/14/2016 13:15:Brooke Washburn RN) Med Hx Anesthetic Complications: No (03/14/2016 13:15:Brooke Washburn RN) Med Hx Abnormal Pap Smear: Yes (03/14/2016 13:15:Brooke Washburn RN) Other Medical Diseases: No (03/14/2016 13:15:Brooke Washburn RN) Med Hx Significant Family Hx: No (03/14/2016 13:15:Brooke Washburn RN) Details of Med/Surg Hx: abnormal pap [id number]; left salpingectomy - ruptured ectopic 2006 (03/14/2016 13:15:Brooke Washburn RN) INFECTIOUS HISTORY Inf Hx Gonorrhea: No (03/14/2016 13:15:Brooke Washburn RN) Inf Hx Chlamydia: No (03/14/2016 13:15:Brooke Washburn RN) Inf Hx Syphilis: No (03/14/2016 13:15:Brooke Washburn RN) Inf Hx HIV/AIDS: No (03/14/2016 13:15:Brooke Washburn RN) Inf Hx Human Papilloma Virus: No (03/14/2016 13:15:Brooke Washburn RN) Inf Hx Pt/Partner Genital Herpes: No (03/14/2016 13:15:Brooke Washburn RN) Inf Hx Tuberculosis/Exposure: No (03/14/2016 13:15:Brooke Washburn RN) Inf Hx Hepatitis B,C: No (03/14/2016 13:15:Brooke Washburn RN) Inf Hx Rash or Viral Illness: No (03/14/2016 13:15:Brooke Washburn RN) GENETIC HISTORY Gen Hx Age >=35 at JAMAL: No (03/14/2016 13:15:Brooke Washburn RN) Gen Hx Thalassemia: No (03/14/2016 13:15:Brooke Washburn RN) Gen Hx Congenital Heart Defect: No (03/14/2016 13:15:Brooke Washburn RN) Gen Hx Neural Tube Defect: No (03/14/2016 13:15:Brooke Washburn RN) Gen Hx Down's Syndrome: No (03/14/2016 13:15:Brooke Washburn RN) Gen Hx Low-Sachs: No (03/14/2016 13:15:Brooke Washburn RN) Gen Hx Lambert: No (03/14/2016 13:15:Brooke Washburn RN) Gen Hx Familial Dysautonomia: No (03/14/2016 13:15:Brooke Washburn RN) Gen Hx Sickle Cell Disease/Trait: No (03/14/2016 13:15:Brooke Washburn RN) Gen Hx Hemophilia/Blood Disorder: No (03/14/2016 13:15:Brooke Washburn RN) Gen Hx Muscular Dystrophy: No (03/14/2016 13:15:Brooke Washburn RN) Gen Hx Cystic Fibrosis: No (03/14/2016 13:15:Brooke Washburn RN) Gen Hx Huntingtons Chorea: No (03/14/2016 13:15:Brooke Washburn RN) Gen Hx Mental Retardation/Autism: No (03/14/2016 13:15:Brooke Washburn RN) Gen Hx Tested for Fragile X: No (03/14/2016 13:15:Brooke Washburn RN) Gen Hx Other Inher/Chromosomal: No (03/14/2016 13:15:Brooke Washburn RN) Gen Hx Maternal Metabolic DO: No (03/14/2016 13:15:Brooke Washburn RN) Gen Hx Pt Father or FOB Defect: No (03/14/2016 13:15:Brooke Washburn RN) Gen Hx Other Genetic History: No (03/14/2016 13:15:Brooke Washburn RN) Gen Hx Drugs/Meds since LMP: No (03/14/2016 13:15:Brooke Washburn RN) Details of Genetic History: 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
--- NOTE | 2016-03-17 06:12 | L&D Current Admission ---
Current Admit Datetime Report Generated by CPN: 03/17/2016 06:00 ADMISSION INFORMATION Chief Complaint: Contractions (03/14/2016 13:36:Brooke Washburn, EZIO)
--- NOTE | 2016-03-18 06:16 | L&D General Admission ---
General Admit Datetime Report Generated by CPN: 03/18/2016 06:00 INFORMATION Patient Age: 30 (02/23/2016 10:02:QS system process) EDC: 04/01/2016 00:00 (03/14/2016 13:15:Brooke Washburn RN) LMP: 05/26/2015 00:00 (03/14/2016 13:15:Brooke Washburn RN) : 4 (03/14/2016 13:15:Brooke Washburn RN) Para: 0 (03/14/2016 13:15:Brooke Washburn RN) Term: 0 (03/14/2016 13:15:Brooke Washburn RN) Spontaneous Abortions: 2 (03/14/2016 13:15:Brooke Washburn RN) Livin (03/14/2016 13:15:Brooke Washburn RN) Ectopic: 1 (03/14/2016 13:15:Brooke Washburn RN) Baby, Number in Womb: 1 (03/14/2016 13:15:Brooke Washburn RN) CARE Primary Clinical Law Professor: [facility] (03/14/2016 13:15:Brooke Washburn RN) Adequate Care: Yes (03/14/2016 13:15:Brooke Washburn RN) Prepregnancy Weight (lb): 250 (03/14/2016 13:15:Brooke Washburn RN) Prepregnancy Weight (kg): 113.6 (03/14/2016 13:15:QS system process) Height (in): 70 (03/14/2016 13:22:QS system process) ALLERGIES Medication Allergy: Yes (03/14/2016 13:15:Brooke Washburn RN) Medication Allergies: Penicillins/SV/Anaphylaxis (03/14/2016); peanut/SV/Anaphylaxis (03/14/2016) (03/14/2016 13:22:QS system process) Latex Allergy: No Latex Allergies (03/14/2016 13:15:Brooke Washburn RN) Food Allergies: Peanut (03/14/2016 13:15:Brooke Washburn RN) Environmental Allergies: Peanut (03/14/2016 13:15:Brooke Washburn RN) COMMUNICATION Primary Language: Guinean (03/14/2016 13:15:Brooke Washburn RN) Medical Tx Preferred Language: Guinean (03/14/2016 13:15:Brooke Washburn RN) Communication Barrier(s): None (03/14/2016 13:15:Brooke Washburn RN) DEMOGRAPHICS Address: [address] [place] [id number] (02/23/2016 10:02:QS system process) Zipcode: [id number] (02/23/2016 10:02:QS system process) Home (02/23/2016 10:02:QS system process) SSN: [id number] (02/23/2016 10:02:QS system process) Next of Kin Name: DIONTE LONGORIA (02/23/2016 10:02:QS system process) Next of Kin (02/23/2016 10:02:QS system process) Next of Kin Relationship: SPO (02/23/2016 10:02:QS system process) Date of : 1985 (02/23/2016 10:02:QS system process) Marital Status: (02/23/2016 10:02:QS system process) Sex: Female (02/23/2016 10:02:QS system process) Race: (02/23/2016 10:02:QS system process) Ethnicity: Non- or (02/23/2016 10:02:QS system process) Anglican: Catholic (02/23/2016 10:02:QS system process) DRUG AND ALCOHOL USE Alcohol: No (03/14/2016 13:15:Brooke Washburn RN) Cigarettes: Never Smoker. [id number] (03/14/2016 13:15:Brooke Washburn RN) Marijuana: No (03/14/2016 13:15:Brooke Washburn RN) Cocaine: No (03/14/2016 13:15:Brooke Washburn RN) Other Illicit Drugs: No (03/14/2016 13:15:Brooke Washburn RN) VACCINE HISTORY Influenza Vaccine: Yes (03/14/2016 13:15:Brooke Washburn RN) Influenza Date: Jan 2016 (03/14/2016 13:15:Brooke Washburn RN) Pneumococcal Vaccine: No (03/14/2016 13:15:Brooke Washburn RN) Tetanus Vaccine: Uncertain (03/14/2016 13:15:Brooke Washburn RN) Tdap Vaccine: Uncertain (03/14/2016 13:15:Brooke Washburn RN) Hepatitis B Vaccine: Yes (03/14/2016 13:15:Brooke Washburn RN) Bank Worker: [facility] (03/14/2016 13:15:Brooke Washburn RN) Feeding Preference: Breast (03/14/2016 13:15:Brooke Washburn RN) Benefit of Breast Feed Discussed: Yes (03/14/2016 13:15:Brooke Washburn RN) Circumcision: N/A (03/14/2016 13:15:Brooke Washburn RN) Classes Attended: No (03/14/2016 13:15:Brooke Washburn RN) Tubal Ligation: No (03/14/2016 13:15:Brooke Washburn RN) Tubal Authorization Signed: N/A (03/14/2016 13:15:Brooke Washburn RN) Consent: N/A (03/14/2016 13:15:Brooke Washburn RN) Consent Signed: N/A (03/14/2016 13:15:Brooke Washburn RN) Pain Management Plans: Natural; Epidural (03/14/2016 13:15:Brooke Washburn RN) Plans for Labor and Delivery: None (03/14/2016 13:15:Brooke Washburn RN) Support Person: Dionte Longoria (03/14/2016 13:15:Brooke Washburn RN) Support Person Relationship: (03/14/2016 13:15:Brooke Washburn RN) Cultural/Spritual Practice: No (03/14/2016 13:15:Brooke Washburn RN) Spir/Cult Dietary Needs: No (03/14/2016 13:15:Brooke Washburn RN) LIVING SITUATION/DISCHARGE PLAN Living Arrangements: House (03/14/2016 13:15:Brooke Washburn RN) Adequate Access to:: Electric; Heat; Refrigeration; Plumbing/Running water; Phone; Transportation (03/14/2016 13:15:Brooke Washburn RN) Discharge Armed Security Officer Person: Dionte Longoria (03/14/2016 13:15:Brooke Washburn RN) Person to Help after Discharge: Dionte Hartden (03/14/2016 13:15:Brooke Washburn RN) Currently Using Commun Resources: No (03/14/2016 13:15:Brooke Washburn RN) Outside Agency/Master Cosmetologist: No (03/14/2016 13:15:Brooke Washburn RN) Car Seat for Discharge: Yes (03/14/2016 13:15:Brooke Washburn RN) Adoption Requested: No (03/14/2016 13:15:Brooke Washburn RN) Pt Contact w/infant Post : N/A (03/14/2016 13:15:Brooke Washburn RN) LABS Blood Type: A Positive (03/14/2016 13:15:Brooke Washburn RN) Antibody Screen: Negative (03/14/2016 13:15:Brooke Washburn RN) Group Beta Strep: Negative (03/14/2016 13:15:Brooke Washburn RN) Gonorrhea: Negative (03/14/2016 13:15:Brooke Washburn RN) Chlamydia: Negative (03/14/2016 13:15:Brooke Washburn RN) RPR/VDRL: Nonreactive (03/14/2016 13:15:Brooke Washburn RN) Hepatitis B: Negative (03/14/2016 13:15:Brooke Washburn RN) Rubella: Immune (03/14/2016 13:15:Brooke Washburn RN) OB/PREVIOUS HISTORY LMP: 05/26/2015 00:00 (03/14/2016 13:15:Brooke Washburn RN) Current Procedures: Ultrasound (03/14/2016 13:15:Brooke Washburn RN) History of Previous : No (03/14/2016 13:15:Brooke Washburn RN) History of Gestational Diabetes: No (03/14/2016 13:15:Brooke Washburn RN) History of PIH: No (03/14/2016 13:15:Brooke Washburn RN) History of Incompetent Cervix: No (03/14/2016 13:15:Brooke Washburn RN) History of Placenta Previa/Abrup: No (03/14/2016 13:15:Brooke Washburn RN) History of Macrosomia: No (03/14/2016 13:15:Brooke Washburn RN) History of IUGR: No (03/14/2016 13:15:Brooke Washburn RN) History of Hemorrhage: No (03/14/2016 13:15:Brooke Washburn RN) History of Loss/Stillborn: No (03/14/2016 13:15:Brooke Washburn RN) History of : No (03/14/2016 13:15:Brooke Washburn RN) History of D (Rh) Sensitization: No (03/14/2016 13:15:Brooke Washburn RN) History Recurrent Loss/Stillborn: No (03/14/2016 13:15:Brooke Washburn RN) History Depression/PP Depression: No (03/14/2016 13:15:Brooke Washburn RN) History of Uterine Anomaly/LOIDA: No (03/14/2016 13:15:Brooke Washburn RN) History of Infertility: No (03/14/2016 13:15:Brooke Washburn RN) History of ART Treatment: No (03/14/2016 13:15:Brooke Washburn RN) History of LOIDA: No (03/14/2016 13:15:Brooke Washburn RN) Comments Obstetrical History: 2006 Left salpingectomy - ruptured ectopic 2010 D_C (03/14/2016 13:15:Brooke Washburn RN) MEDICAL HISTORY Med Hx Diabetes: No (03/14/2016 13:15:Brooke Washburn RN) Med Hx Hypertension: No (03/14/2016 13:15:Brooke Washburn RN) Med Hx Heart Disease: No (03/14/2016 13:15:Brooke Washburn RN) Med Hx Autoimmune Disorder: No (03/14/2016 13:15:Brooke Washburn RN) Med Hx Kidney Disease/UTI: No (03/14/2016 13:15:Brooke Washburn RN) Med Hx Neurologic/Epilepsy: No (03/14/2016 13:15:Brooke Washburn RN) Med Hx Psychiatric Disorders: No (03/14/2016 13:15:Brooke Washburn RN) Med Hx Hepatitis/Liver Disease: No (03/14/2016 13:15:Brooke Washburn RN) Med Hx Varicosities/Phlebitis: No (03/14/2016 13:15:Brooke Washburn RN) Med Hx Thyroid Dysfunction: No (03/14/2016 13:15:Brooke Washburn RN) Med Hx Trauma/Violence: No (03/14/2016 13:15:Brooke Washburn RN) Med Hx Blood Transfusion: No (03/14/2016 13:15:Brooke Washburn RN) Med Hx Pulmonary (Asthma,TB): No (03/14/2016 13:15:Brooke Washburn RN) Med Hx Breast: No (03/14/2016 13:15:Brooke Washburn RN) Med Hx PIER MASTER Surgery: No (03/14/2016 13:15:Brooke Washburn RN) Med Hx Hospitalization/Surgery: Yes (03/14/2016 13:15:Brooke Washburn RN) Med Hx Anesthetic Complications: No (03/14/2016 13:15:Brooke Washburn RN) Med Hx Abnormal Pap Smear: Yes (03/14/2016 13:15:Brooke Washburn RN) Other Medical Diseases: No (03/14/2016 13:15:Brooke Washburn RN) Med Hx Significant Family Hx: No (03/14/2016 13:15:Brooke Washburn RN) Details of Med/Surg Hx: abnormal pap [id number]; left salpingectomy - ruptured ectopic 2006 (03/14/2016 13:15:Brooke Washburn RN) INFECTIOUS HISTORY Inf Hx Gonorrhea: No (03/14/2016 13:15:Brooke Washburn RN) Inf Hx Chlamydia: No (03/14/2016 13:15:Brooke Washburn RN) Inf Hx Syphilis: No (03/14/2016 13:15:Brooke Washburn RN) Inf Hx HIV/AIDS: No (03/14/2016 13:15:Brooke Washburn RN) Inf Hx Human Papilloma Virus: No (03/14/2016 13:15:Brooke Washburn RN) Inf Hx Pt/Partner Genital Herpes: No (03/14/2016 13:15:Brooke Washburn RN) Inf Hx Tuberculosis/Exposure: No (03/14/2016 13:15:Brooke Washburn RN) Inf Hx Hepatitis B,C: No (03/14/2016 13:15:Brooke Washburn RN) Inf Hx Rash or Viral Illness: No (03/14/2016 13:15:Brooke Washburn RN) GENETIC HISTORY Gen Hx Age >=35 at JAMAL: No (03/14/2016 13:15:Brooke Washburn RN) Gen Hx Thalassemia: No (03/14/2016 13:15:Brooke Washburn RN) Gen Hx Congenital Heart Defect: No (03/14/2016 13:15:Brooke Washburn RN) Gen Hx Neural Tube Defect: No (03/14/2016 13:15:Brooke Washburn RN) Gen Hx Down's Syndrome: No (03/14/2016 13:15:Brooke Washburn RN) Gen Hx Low-Sachs: No (03/14/2016 13:15:Brooke Washburn RN) Gen Hx Lambert: No (03/14/2016 13:15:Brooke Washburn RN) Gen Hx Familial Dysautonomia: No (03/14/2016 13:15:Brooke Washburn RN) Gen Hx Sickle Cell Disease/Trait: No (03/14/2016 13:15:Brooke Washburn RN) Gen Hx Hemophilia/Blood Disorder: No (03/14/2016 13:15:Brooke Washburn RN) Gen Hx Muscular Dystrophy: No (03/14/2016 13:15:Brooke Washburn RN) Gen Hx Cystic Fibrosis: No (03/14/2016 13:15:Brooke Washburn RN) Gen Hx Huntingtons Chorea: No (03/14/2016 13:15:Brooke Washburn RN) Gen Hx Mental Retardation/Autism: No (03/14/2016 13:15:Brooke Washburn RN) Gen Hx Tested for Fragile X: No (03/14/2016 13:15:Brooke Washburn RN) Gen Hx Other Inher/Chromosomal: No (03/14/2016 13:15:Brooke Washburn RN) Gen Hx Maternal Metabolic DO: No (03/14/2016 13:15:Brooke Washburn RN) Gen Hx Pt Father or FOB Defect: No (03/14/2016 13:15:Brooke Washburn RN) Gen Hx Other Genetic History: No (03/14/2016 13:15:Brooke Washburn RN) Gen Hx Drugs/Meds since LMP: No (03/14/2016 13:15:Brooke Washburn RN) Details of Genetic History: 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
--- NOTE | 2016-03-18 06:16 | L&D Current Admission ---
Current Admit Datetime Report Generated by CPN: 03/18/2016 06:00 ADMISSION INFORMATION Chief Complaint: Contractions (03/14/2016 13:36:Brooke Washburn, EZIO)
--- NOTE | 2016-03-19 06:17 | L&D Current Admission ---
Current Admit Datetime Report Generated by CPN: 03/19/2016 06:00 ADMISSION INFORMATION Chief Complaint: Contractions (03/14/2016 13:36:Brooke Washburn, EZIO)
--- NOTE | 2016-03-19 06:17 | L&D General Admission ---
General Admit Datetime Report Generated by CPN: 03/19/2016 06:00 INFORMATION Patient Age: 30 (02/23/2016 10:02:QS system process) EDC: 04/01/2016 00:00 (03/14/2016 13:15:Brooke Washburn RN) LMP: 05/26/2015 00:00 (03/14/2016 13:15:Brooke Washburn RN) : 4 (03/14/2016 13:15:Brooke Washburn RN) Para: 0 (03/14/2016 13:15:Brooke Washburn RN) Term: 0 (03/14/2016 13:15:Brooke Washburn RN) Spontaneous Abortions: 2 (03/14/2016 13:15:Brooke Washburn RN) Livin (03/14/2016 13:15:Brooke Washburn RN) Ectopic: 1 (03/14/2016 13:15:Brooke Washburn RN) Baby, Number in Womb: 1 (03/14/2016 13:15:Brooke Washburn RN) CARE Primary Proposition [facility] (03/14/2016 13:15:Brooke Washburn RN) Adequate Care: Yes (03/14/2016 13:15:Brooke Washburn RN) Prepregnancy Weight (lb): 250 (03/14/2016 13:15:Brooke Washburn RN) Prepregnancy Weight (kg): 113.6 (03/14/2016 13:15:QS system process) Height (in): 70 (03/14/2016 13:22:QS system process) ALLERGIES Medication Allergy: Yes (03/14/2016 13:15:Brooke Washburn RN) Medication Allergies: Penicillins/SV/Anaphylaxis (03/14/2016); peanut/SV/Anaphylaxis (03/14/2016) (03/14/2016 13:22:QS system process) Latex Allergy: No Latex Allergies (03/14/2016 13:15:Brooke Washburn RN) Food Allergies: Peanut (03/14/2016 13:15:Brooke Washburn RN) Environmental Allergies: Peanut (03/14/2016 13:15:Brooke Washburn RN) COMMUNICATION Primary Language: Albanian (03/14/2016 13:15:Brooke Washburn RN) Medical Tx Preferred Language: Albanian (03/14/2016 13:15:Brooke Washburn RN) Communication Barrier(s): None (03/14/2016 13:15:Brooke Washburn RN) DEMOGRAPHICS Address: [address] [place] [id number] (02/23/2016 10:02:QS system process) Zipcode: [address] (02/23/2016 10:02:QS system process) Home (02/23/2016 10:02:QS system process) SSN: [id number] (02/23/2016 10:02:QS system process) Next of Kin Name: DIONTE LONGORIA (02/23/2016 10:02:QS system process) Next of Kin (02/23/2016 10:02:QS system process) Next of Kin Relationship: SPO (02/23/2016 10:02:QS system process) Date of : 1985 (02/23/2016 10:02:QS system process) Marital Status: (02/23/2016 10:02:QS system process) Sex: Female (02/23/2016 10:02:QS system process) Race: (02/23/2016 10:02:QS system process) Ethnicity: Non- or (02/23/2016 10:02:QS system process) Roman Catholic: Mormon (02/23/2016 10:02:QS system process) DRUG AND ALCOHOL USE Alcohol: No (03/14/2016 13:15:Brooke Washburn RN) Cigarettes: Never Smoker. [id number] (03/14/2016 13:15:Brooke Washburn RN) Marijuana: No (03/14/2016 13:15:Brooke Washburn RN) Cocaine: No (03/14/2016 13:15:Brooke Washburn RN) Other Illicit Drugs: No (03/14/2016 13:15:Brooke Washburn RN) VACCINE HISTORY Influenza Vaccine: Yes (03/14/2016 13:15:Brooke Washburn RN) Influenza Date: Jan 2016 (03/14/2016 13:15:Brooke Washburn RN) Pneumococcal Vaccine: No (03/14/2016 13:15:Brooke Washburn RN) Tetanus Vaccine: Uncertain (03/14/2016 13:15:Brooke Washburn RN) Tdap Vaccine: Uncertain (03/14/2016 13:15:Brooke Washburn RN) Hepatitis B Vaccine: Yes (03/14/2016 13:15:Brooke Washburn RN) Network Analyst: [facility] (03/14/2016 13:15:Brooke Washburn RN) Feeding Preference: Breast (03/14/2016 13:15:Brooke Washburn RN) Benefit of Breast Feed Discussed: Yes (03/14/2016 13:15:Brooke Washburn RN) Circumcision: N/A (03/14/2016 13:15:Brooke Washburn RN) Classes Attended: No (03/14/2016 13:15:Brooke Washburn RN) Tubal Ligation: No (03/14/2016 13:15:Brooke Washburn RN) Tubal Authorization Signed: N/A (03/14/2016 13:15:Brooke Washburn RN) Consent: N/A (03/14/2016 13:15:Brooke Washburn RN) Consent Signed: N/A (03/14/2016 13:15:Brooke Washburn RN) Pain Management Plans: Natural; Epidural (03/14/2016 13:15:Brooke Washburn RN) Plans for Labor and Delivery: None (03/14/2016 13:15:Brooke Washburn RN) Support Person: Dionte Longoria (03/14/2016 13:15:Brooke Washburn RN) Support Person Relationship: (03/14/2016 13:15:Brooke Washburn RN) Cultural/Spritual Practice: No (03/14/2016 13:15:Brooke Washburn RN) Spir/Cult Dietary Needs: No (03/14/2016 13:15:Brooke Washburn RN) LIVING SITUATION/DISCHARGE PLAN Living Arrangements: House (03/14/2016 13:15:Brooke Washburn RN) Adequate Access to:: Electric; Heat; Refrigeration; Plumbing/Running water; Phone; Transportation (03/14/2016 13:15:Brooke Washburn RN) Discharge High School Auto Repair Teacher Person: Dionte Longoria (03/14/2016 13:15:Brooke Washburn RN) Person to Help after Discharge: Dionte Hartden (03/14/2016 13:15:Brooke Washburn RN) Currently Using Commun Resources: No (03/14/2016 13:15:Brooke Washburn RN) Outside Agency/Sawmill Supervisor: No (03/14/2016 13:15:Brooke Washburn RN) Car Seat for Discharge: Yes (03/14/2016 13:15:Brooke Washburn RN) Adoption Requested: No (03/14/2016 13:15:Brooke Washburn RN) Pt Contact w/infant Post : N/A (03/14/2016 13:15:Brooke Washburn RN) LABS Blood Type: A Positive (03/14/2016 13:15:Brooke Washburn RN) Antibody Screen: Negative (03/14/2016 13:15:Brooke Washburn RN) Group Beta Strep: Negative (03/14/2016 13:15:Brooke Washburn RN) Gonorrhea: Negative (03/14/2016 13:15:Brooke Washburn RN) Chlamydia: Negative (03/14/2016 13:15:Brooke Washburn RN) RPR/VDRL: Nonreactive (03/14/2016 13:15:Brooke Washburn RN) Hepatitis B: Negative (03/14/2016 13:15:Brooke Washburn RN) Rubella: Immune (03/14/2016 13:15:Brooke Washburn RN) OB/PREVIOUS HISTORY LMP: 05/26/2015 00:00 (03/14/2016 13:15:Brooke Washburn RN) Current Procedures: Ultrasound (03/14/2016 13:15:Brooke Washburn RN) History of Previous : No (03/14/2016 13:15:Brooke Washburn RN) History of Gestational Diabetes: No (03/14/2016 13:15:Brooke Washburn RN) History of PIH: No (03/14/2016 13:15:Brooke Washburn RN) History of Incompetent Cervix: No (03/14/2016 13:15:Brooke Washburn RN) History of Placenta Previa/Abrup: No (03/14/2016 13:15:Brooke Washburn RN) History of Macrosomia: No (03/14/2016 13:15:Brooke Washburn RN) History of IUGR: No (03/14/2016 13:15:Brooke Washburn RN) History of Hemorrhage: No (03/14/2016 13:15:Brooke Washburn RN) History of Loss/Stillborn: No (03/14/2016 13:15:Brooke Washburn RN) History of : No (03/14/2016 13:15:Brooke Washburn RN) History of D (Rh) Sensitization: No (03/14/2016 13:15:Brooke Washburn RN) History Recurrent Loss/Stillborn: No (03/14/2016 13:15:Brooke Washburn RN) History Depression/PP Depression: No (03/14/2016 13:15:Brooke Washburn RN) History of Uterine Anomaly/LOIDA: No (03/14/2016 13:15:Brooke Washburn RN) History of Infertility: No (03/14/2016 13:15:Brooke Washburn RN) History of ART Treatment: No (03/14/2016 13:15:Brooke Washburn RN) History of LOIDA: No (03/14/2016 13:15:Brooke Washburn RN) Comments Obstetrical History: 2006 Left salpingectomy - ruptured ectopic 2010 D_C (03/14/2016 13:15:Brooke Washburn RN) MEDICAL HISTORY Med Hx Diabetes: No (03/14/2016 13:15:Brooke Washburn RN) Med Hx Hypertension: No (03/14/2016 13:15:Brooke Washburn RN) Med Hx Heart Disease: No (03/14/2016 13:15:Brooke Washburn RN) Med Hx Autoimmune Disorder: No (03/14/2016 13:15:Brooke Washburn RN) Med Hx Kidney Disease/UTI: No (03/14/2016 13:15:Brooke Washburn RN) Med Hx Neurologic/Epilepsy: No (03/14/2016 13:15:Brooke Washburn RN) Med Hx Psychiatric Disorders: No (03/14/2016 13:15:Brooke Washburn RN) Med Hx Hepatitis/Liver Disease: No (03/14/2016 13:15:Brooke Washburn RN) Med Hx Varicosities/Phlebitis: No (03/14/2016 13:15:Brooke Washburn RN) Med Hx Thyroid Dysfunction: No (03/14/2016 13:15:Brooke Washburn RN) Med Hx Trauma/Violence: No (03/14/2016 13:15:Brooke Washburn RN) Med Hx Blood Transfusion: No (03/14/2016 13:15:Brooke Washburn RN) Med Hx Pulmonary (Asthma,TB): No (03/14/2016 13:15:Brooke Washburn RN) Med Hx Breast: No (03/14/2016 13:15:Brooke Washburn RN) Med Hx GRIEVANCE COORDINATOR Surgery: No (03/14/2016 13:15:Brooke Washburn RN) Med Hx Hospitalization/Surgery: Yes (03/14/2016 13:15:Brooke Washburn RN) Med Hx Anesthetic Complications: No (03/14/2016 13:15:Brooke Washburn RN) Med Hx Abnormal Pap Smear: Yes (03/14/2016 13:15:Brooek Washburn RN) Other Medical Diseases: No (03/14/2016 13:15:Brokoe Washburn RN) Med Hx Significant Family Hx: No (03/14/2016 13:15:Brooke Washburn RN) Details of Med/Surg Hx: abnormal pap [id number]; left salpingectomy - ruptured ectopic 2006 (03/14/2016 13:15:Brooke Washburn RN) INFECTIOUS HISTORY Inf Hx Gonorrhea: No (03/14/2016 13:15:Brooke Washburn RN) Inf Hx Chlamydia: No (03/14/2016 13:15:Brooke Washburn RN) Inf Hx Syphilis: No (03/14/2016 13:15:Brooke Washburn RN) Inf Hx HIV/AIDS: No (03/14/2016 13:15:Brooke Washburn RN) Inf Hx Human Papilloma Virus: No (03/14/2016 13:15:Brooke Washburn RN) Inf Hx Pt/Partner Genital Herpes: No (03/14/2016 13:15:Brooke Washburn RN) Inf Hx Tuberculosis/Exposure: No (03/14/2016 13:15:Brooke Washburn RN) Inf Hx Hepatitis B,C: No (03/14/2016 13:15:Brooke Washburn RN) Inf Hx Rash or Viral Illness: No (03/14/2016 13:15:Brooke Washburn RN) GENETIC HISTORY Gen Hx Age >=35 at JAMAL: No (03/14/2016 13:15:Brooke Washburn RN) Gen Hx Thalassemia: No (03/14/2016 13:15:Brooke Washburn RN) Gen Hx Congenital Heart Defect: No (03/14/2016 13:15:Brooke Washburn RN) Gen Hx Neural Tube Defect: No (03/14/2016 13:15:Brooke Washburn RN) Gen Hx Down's Syndrome: No (03/14/2016 13:15:Brooke Washburn RN) Gen Hx Low-Sachs: No (03/14/2016 13:15:Brooke Washburn RN) Gen Hx Lambret: No (03/14/2016 13:15:Brooke Washburn RN) Gen Hx Familial Dysautonomia: No (03/14/2016 13:15:Brooke Washburn RN) Gen Hx Sickle Cell Disease/Trait: No (03/14/2016 13:15:Brooke Washburn RN) Gen Hx Hemophilia/Blood Disorder: No (03/14/2016 13:15:Brooke Washburn RN) Gen Hx Muscular Dystrophy: No (03/14/2016 13:15:Brooke Washburn RN) Gen Hx Cystic Fibrosis: No (03/14/2016 13:15:Brooke Washburn RN) Gen Hx Huntingtons Chorea: No (03/14/2016 13:15:Brooke Washburn RN) Gen Hx Mental Retardation/Autism: No (03/14/2016 13:15:Brooke Washburn RN) Gen Hx Tested for Fragile X: No (03/14/2016 13:15:Brooke Washburn RN) Gen Hx Other Inher/Chromosomal: No (03/14/2016 13:15:Brooke Washburn RN) Gen Hx Maternal Metabolic DO: No (03/14/2016 13:15:Brooke Washburn RN) Gen Hx Pt Father or FOB Defect: No (03/14/2016 13:15:Brooke Washburn RN) Gen Hx Other Genetic History: No (03/14/2016 13:15:Brooke Washburn RN) Gen Hx Drugs/Meds since LMP: No (03/14/2016 13:15:Brooke Washburn RN) Details of Genetic History: 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
--- NOTE | 2016-03-20 06:18 | L&D General Admission ---
General Admit Datetime Report Generated by N: 03/20/2016 06:00 INFORMATION Patient Age: 30 (02/23/2016 10:02:QS system process) EDC: 04/01/2016 00:00 (03/14/2016 13:15:Brooke Washburn RN) LMP: 05/26/2015 00:00 (03/14/2016 13:15:Brooke Washburn RN) : 4 (03/14/2016 13:15:Brooke Washburn RN) Para: 0 (03/14/2016 13:15:Brooke Washburn RN) Term: 0 (03/14/2016 13:15:Brooke Washburn RN) Spontaneous Abortions: 2 (03/14/2016 13:15:Brooke Washburn RN) Livin (03/14/2016 13:15:Brooke Washburn RN) Ectopic: 1 (03/14/2016 13:15:Brooke Washburn RN) Baby, Number in Womb: 1 (03/14/2016 13:15:Brooke Washburn RN) CARE Primary Hand Alterations Tailor: [facility] (03/14/2016 13:15:Brooke Washburn RN) Adequate Care: Yes (03/14/2016 13:15:Brooke Washburn RN) Prepregnancy Weight (lb): 250 (03/14/2016 13:15:Brooke Washburn RN) Prepregnancy Weight (kg): 113.6 (03/14/2016 13:15:QS system process) Height (in): 70 (03/14/2016 13:22:QS system process) ALLERGIES Medication Allergy: Yes (03/14/2016 13:15:Brooke Washburn RN) Medication Allergies: Penicillins/SV/Anaphylaxis (03/14/2016); peanut/SV/Anaphylaxis (03/14/2016) (03/14/2016 13:22:QS system process) Latex Allergy: No Latex Allergies (03/14/2016 13:15:Brooke Washburn RN) Food Allergies: Peanut (03/14/2016 13:15:Brooke Washburn RN) Environmental Allergies: Peanut (03/14/2016 13:15:Brooke Washburn RN) COMMUNICATION Primary Language: Belizean (03/14/2016 13:15:Brooke Washburn RN) Medical Tx Preferred Language: Belizean (03/14/2016 13:15:Brooke Washburn RN) Communication Barrier(s): None (03/14/2016 13:15:Brooke Washburn RN) DEMOGRAPHICS Address: [address] [place] [id number] (02/23/2016 10:02:QS system process) Zipcode: [address] (02/23/2016 10:02:QS system process) Home (02/23/2016 10:02:QS system process) SSN: [id number] (02/23/2016 10:02:QS system process) Next of Kin Name: DIONTE LONGORIA (02/23/2016 10:02:QS system process) Next of Kin (02/23/2016 10:02:QS system process) Next of Kin Relationship: SPO (02/23/2016 10:02:QS system process) Date of : 1985 (02/23/2016 10:02:QS system process) Marital Status: (02/23/2016 10:02:QS system process) Sex: Female (02/23/2016 10:02:QS system process) Race: (02/23/2016 10:02:QS system process) Ethnicity: Non- or (02/23/2016 10:02:QS system process) Mosque: Roman Catholic (02/23/2016 10:02:QS system process) DRUG AND ALCOHOL USE Alcohol: No (03/14/2016 13:15:rBooke Washburn RN) Cigarettes: Never Smoker. [id number] (03/14/2016 13:15:Brooke Washburn RN) Marijuana: No (03/14/2016 13:15:Brooke Washburn RN) Cocaine: No (03/14/2016 13:15:Brooke Washburn RN) Other Illicit Drugs: No (03/14/2016 13:15:Brooke Washburn RN) VACCINE HISTORY Influenza Vaccine: Yes (03/14/2016 13:15:Brooke Washburn RN) Influenza Date: Jan 2016 (03/14/2016 13:15:Brooke Washburn RN) Pneumococcal Vaccine: No (03/14/2016 13:15:Brooke Washburn RN) Tetanus Vaccine: Uncertain (03/14/2016 13:15:Brooke Washburn RN) Tdap Vaccine: Uncertain (03/14/2016 13:15:Brooke Washburn RN) Hepatitis B Vaccine: Yes (03/14/2016 13:15:Brooke Washburn RN) Line O Scribe Operator: [facility] (03/14/2016 13:15:Brooke Washburn RN) Feeding Preference: Breast (03/14/2016 13:15:Brooke Washburn RN) Benefit of Breast Feed Discussed: Yes (03/14/2016 13:15:Brooke Washburn RN) Circumcision: N/A (03/14/2016 13:15:Brooke Washburn RN) Classes Attended: No (03/14/2016 13:15:Brooke Washburn RN) Tubal Ligation: No (03/14/2016 13:15:Brooke Washburn RN) Tubal Authorization Signed: N/A (03/14/2016 13:15:Brooke Washburn RN) Consent: N/A (03/14/2016 13:15:Brooke Washburn RN) Consent Signed: N/A (03/14/2016 13:15:Brooke Washburn RN) Pain Management Plans: Natural; Epidural (03/14/2016 13:15:Brooke Washburn RN) Plans for Labor and Delivery: None (03/14/2016 13:15:Brooke Washburn RN) Support Person: Dionte Longoria (03/14/2016 13:15:Brooke Washburn RN) Support Person Relationship: (03/14/2016 13:15:Brooke Washburn RN) Cultural/Spritual Practice: No (03/14/2016 13:15:Brooke Washburn RN) Spir/Cult Dietary Needs: No (03/14/2016 13:15:Brooke Washburn RN) LIVING SITUATION/DISCHARGE PLAN Living Arrangements: House (03/14/2016 13:15:Brooke Washburn RN) Adequate Access to:: Electric; Heat; Refrigeration; Plumbing/Running water; Phone; Transportation (03/14/2016 13:15:Brooke Washburn RN) Discharge Branch Account Manager Person: Dionte Longoria (03/14/2016 13:15:Brooke Washburn RN) Person to Help after Discharge: Dionte Hartden (03/14/2016 13:15:Brooke Washburn RN) Currently Using Commun Resources: No (03/14/2016 13:15:Brooke Washburn RN) Outside Agency/Char Puller: No (03/14/2016 13:15:Brooke Washburn RN) Car Seat for Discharge: Yes (03/14/2016 13:15:Brooke Washburn RN) Adoption Requested: No (03/14/2016 13:15:Brooke Washburn RN) Pt Contact w/infant Post : N/A (03/14/2016 13:15:Brooke Washburn RN) LABS Blood Type: A Positive (03/14/2016 13:15:Brooke Washburn RN) Antibody Screen: Negative (03/14/2016 13:15:Brooke Washburn RN) Group Beta Strep: Negative (03/14/2016 13:15:Brooke Washburn RN) Gonorrhea: Negative (03/14/2016 13:15:Brooke Washburn RN) Chlamydia: Negative (03/14/2016 13:15:Brooke Washburn RN) RPR/VDRL: Nonreactive (03/14/2016 13:15:Brokoe Washburn RN) Hepatitis B: Negative (03/14/2016 13:15:Brooke Washburn RN) Rubella: Immune (03/14/2016 13:15:Brooke Washburn RN) OB/PREVIOUS HISTORY LMP: 05/26/2015 00:00 (03/14/2016 13:15:Brooke Washburn RN) Current Procedures: Ultrasound (03/14/2016 13:15:Brooke Washburn RN) History of Previous : No (03/14/2016 13:15:Brooke Washburn RN) History of Gestational Diabetes: No (03/14/2016 13:15:Brooke Washburn RN) History of PIH: No (03/14/2016 13:15:Brooke Washburn RN) History of Incompetent Cervix: No (03/14/2016 13:15:Brooke Washburn RN) History of Placenta Previa/Abrup: No (03/14/2016 13:15:Brooke Washburn RN) History of Macrosomia: No (03/14/2016 13:15:Brooke Washburn RN) History of IUGR: No (03/14/2016 13:15:Brooke Washburn RN) History of Hemorrhage: No (03/14/2016 13:15:Brooke Washburn RN) History of Loss/Stillborn: No (03/14/2016 13:15:Brooke Washburn RN) History of : No (03/14/2016 13:15:Brooke Washburn RN) History of D (Rh) Sensitization: No (03/14/2016 13:15:Brooke Washburn RN) History Recurrent Loss/Stillborn: No (03/14/2016 13:15:Brooke Washburn RN) History Depression/PP Depression: No (03/14/2016 13:15:Brooke Washburn RN) History of Uterine Anomaly/LOIDA: No (03/14/2016 13:15:Brooke Washburn RN) History of Infertility: No (03/14/2016 13:15:Brooke Washburn RN) History of ART Treatment: No (03/14/2016 13:15:Brooke Washburn RN) History of LOIDA: No (03/14/2016 13:15:Brooke Washburn RN) Comments Obstetrical History: 2006 Left salpingectomy - ruptured ectopic 2010 D_C (03/14/2016 13:15:Brooke Washburn RN) MEDICAL HISTORY Med Hx Diabetes: No (03/14/2016 13:15:Brooke Washburn RN) Med Hx Hypertension: No (03/14/2016 13:15:Brooke Washburn RN) Med Hx Heart Disease: No (03/14/2016 13:15:Brooke Washburn RN) Med Hx Autoimmune Disorder: No (03/14/2016 13:15:Brooke Washburn RN) Med Hx Kidney Disease/UTI: No (03/14/2016 13:15:Brooke Washburn RN) Med Hx Neurologic/Epilepsy: No (03/14/2016 13:15:Brooke Washburn RN) Med Hx Psychiatric Disorders: No (03/14/2016 13:15:Brooke Washburn RN) Med Hx Hepatitis/Liver Disease: No (03/14/2016 13:15:Brooke Washburn RN) Med Hx Varicosities/Phlebitis: No (03/14/2016 13:15:Brooke Washburn RN) Med Hx Thyroid Dysfunction: No (03/14/2016 13:15:Brooke Washburn RN) Med Hx Trauma/Violence: No (03/14/2016 13:15:Brooke Washburn RN) Med Hx Blood Transfusion: No (03/14/2016 13:15:Brooke Washburn RN) Med Hx Pulmonary (Asthma,TB): No (03/14/2016 13:15:Brooke Washburn RN) Med Hx Breast: No (03/14/2016 13:15:Brooke Washburn RN) Med Hx RECREATIONAL AIDE Surgery: No (03/14/2016 13:15:Brooke Washburn RN) Med Hx Hospitalization/Surgery: Yes (03/14/2016 13:15:Brooke Washburn RN) Med Hx Anesthetic Complications: No (03/14/2016 13:15:Brooke Washburn RN) Med Hx Abnormal Pap Smear: Yes (03/14/2016 13:15:Brooke Washburn RN) Other Medical Diseases: No (03/14/2016 13:15:Brooke Washburn RN) Med Hx Significant Family Hx: No (03/14/2016 13:15:Brooke Washburn RN) Details of Med/Surg Hx: abnormal pap [id number]; left salpingectomy - ruptured ectopic 2006 (03/14/2016 13:15:Brooke Washburn RN) INFECTIOUS HISTORY Inf Hx Gonorrhea: No (03/14/2016 13:15:Brooke Washburn RN) Inf Hx Chlamydia: No (03/14/2016 13:15:Brooke Washburn RN) Inf Hx Syphilis: No (03/14/2016 13:15:Brooke Washburn RN) Inf Hx HIV/AIDS: No (03/14/2016 13:15:Brooke Washburn RN) Inf Hx Human Papilloma Virus: No (03/14/2016 13:15:Brooke Washburn RN) Inf Hx Pt/Partner Genital Herpes: No (03/14/2016 13:15:Brooke Washburn RN) Inf Hx Tuberculosis/Exposure: No (03/14/2016 13:15:Brooke Washburn RN) Inf Hx Hepatitis B,C: No (03/14/2016 13:15:Brooke Washburn RN) Inf Hx Rash or Viral Illness: No (03/14/2016 13:15:Brooke Washburn RN) GENETIC HISTORY Gen Hx Age >=35 at JAMAL: No (03/14/2016 13:15:Brooke Washburn RN) Gen Hx Thalassemia: No (03/14/2016 13:15:Brooke Washburn RN) Gen Hx Congenital Heart Defect: No (03/14/2016 13:15:Brooke Washburn RN) Gen Hx Neural Tube Defect: No (03/14/2016 13:15:Brooke Washburn RN) Gen Hx Down's Syndrome: No (03/14/2016 13:15:Brooke Washburn RN) Gen Hx Low-Sachs: No (03/14/2016 13:15:Brooke Washburn RN) Gen Hx Lambert: No (03/14/2016 13:15:Brooke Washburn RN) Gen Hx Familial Dysautonomia: No (03/14/2016 13:15:Brooke Washburn RN) Gen Hx Sickle Cell Disease/Trait: No (03/14/2016 13:15:Brooke Washburn RN) Gen Hx Hemophilia/Blood Disorder: No (03/14/2016 13:15:Brooke Washburn RN) Gen Hx Muscular Dystrophy: No (03/14/2016 13:15:Brooke Washburn RN) Gen Hx Cystic Fibrosis: No (03/14/2016 13:15:Brooke Washburn RN) Gen Hx Huntingtons Chorea: No (03/14/2016 13:15:Brooke Washburn RN) Gen Hx Mental Retardation/Autism: No (03/14/2016 13:15:Brooke Washburn RN) Gen Hx Tested for Fragile X: No (03/14/2016 13:15:Brooke Washburn RN) Gen Hx Other Inher/Chromosomal: No (03/14/2016 13:15:Brooke Washburn RN) Gen Hx Maternal Metabolic DO: No (03/14/2016 13:15:Brooke Washburn RN) Gen Hx Pt Father or FOB Defect: No (03/14/2016 13:15:Brokoe Washburn RN) Gen Hx Other Genetic History: No (03/14/2016 13:15:Brooke Washburn RN) Gen Hx Drugs/Meds since LMP: No (03/14/2016 13:15:Brooke Washburn RN) Details of Genetic History: 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
--- NOTE | 2016-03-20 06:18 | L&D Current Admission ---
Current Admit Datetime Report Generated by CPN: 03/20/2016 06:00 ADMISSION INFORMATION Chief Complaint: Contractions (03/14/2016 13:36:Brooke Washburn, EZIO)
--- NOTE | 2016-03-21 06:17 | L&D General Admission ---
General Admit Datetime Report Generated by CPN: 03/21/2016 06:00 INFORMATION Patient Age: 30 (02/23/2016 10:02:QS system process) EDC: 04/01/2016 00:00 (03/14/2016 13:15:Brooke Washburn RN) LMP: 05/26/2015 00:00 (03/14/2016 13:15:Brooke Washburn RN) : 4 (03/14/2016 13:15:Brooke Washburn RN) Para: 0 (03/14/2016 13:15:Brooke Washburn RN) Term: 0 (03/14/2016 13:15:Brooke Washburn RN) Spontaneous Abortions: 2 (03/14/2016 13:15:Brooke Washburn RN) Livin (03/14/2016 13:15:Brooke Washburn RN) Ectopic: 1 (03/14/2016 13:15:Brooke Washburn RN) Baby, Number in Womb: 1 (03/14/2016 13:15:Brooke Washburn RN) CARE Primary Game Engineer: [facility] (03/14/2016 13:15:Brooke Washburn RN) Adequate Care: Yes (03/14/2016 13:15:Brooke Washburn RN) Prepregnancy Weight (lb): 250 (03/14/2016 13:15:Brooke Washburn RN) Prepregnancy Weight (kg): 113.6 (03/14/2016 13:15:QS system process) Height (in): 70 (03/14/2016 13:22:QS system process) ALLERGIES Medication Allergy: Yes (03/14/2016 13:15:Brooke Washburn RN) Medication Allergies: Penicillins/SV/Anaphylaxis (03/14/2016); peanut/SV/Anaphylaxis (03/14/2016) (03/14/2016 13:22:QS system process) Latex Allergy: No Latex Allergies (03/14/2016 13:15:Brooke Washburn RN) Food Allergies: Peanut (03/14/2016 13:15:Brooke Washburn RN) Environmental Allergies: Peanut (03/14/2016 13:15:Brooke Washburn RN) COMMUNICATION Primary Language: Andorran (03/14/2016 13:15:Brooke Washburn RN) Medical Tx Preferred Language: Andorran (03/14/2016 13:15:Brooke Washburn RN) Communication Barrier(s): None (03/14/2016 13:15:Brooke Washburn RN) DEMOGRAPHICS Address: [address] [place] [id number] (02/23/2016 10:02:QS system process) Zipcode: [address] (02/23/2016 10:02:QS system process) Home (02/23/2016 10:02:QS system process) SSN: [id number] (02/23/2016 10:02:QS system process) Next of Kin Name: DIONTE LONGORIA (02/23/2016 10:02:QS system process) Next of Kin (02/23/2016 10:02:QS system process) Next of Kin Relationship: SPO (02/23/2016 10:02:QS system process) Date of : 1985 (02/23/2016 10:02:QS system process) Marital Status: (02/23/2016 10:02:QS system process) Sex: Female (02/23/2016 10:02:QS system process) Race: (02/23/2016 10:02:QS system process) Ethnicity: Non- or (02/23/2016 10:02:QS system process) Nondenominational: Catholic (02/23/2016 10:02:QS system process) DRUG AND ALCOHOL USE Alcohol: No (03/14/2016 13:15:Brooke Washburn RN) Cigarettes: Never Smoker. [id number] (03/14/2016 13:15:Brooke Washburn RN) Marijuana: No (03/14/2016 13:15:Brooke Washburn RN) Cocaine: No (03/14/2016 13:15:Brooke Washburn RN) Other Illicit Drugs: No (03/14/2016 13:15:Brooke Washburn RN) VACCINE HISTORY Influenza Vaccine: Yes (03/14/2016 13:15:Brooke Washburn RN) Influenza Date: Jan 2016 (03/14/2016 13:15:Brooke Washburn RN) Pneumococcal Vaccine: No (03/14/2016 13:15:Brooke Washburn RN) Tetanus Vaccine: Uncertain (03/14/2016 13:15:Brooke Washburn RN) Tdap Vaccine: Uncertain (03/14/2016 13:15:Brooke Washburn RN) Hepatitis B Vaccine: Yes (03/14/2016 13:15:Brooke Washburn RN) Top Taper Machine: [facility] (03/14/2016 13:15:Brooke Washburn RN) Feeding Preference: Breast (03/14/2016 13:15:Brooke Washburn RN) Benefit of Breast Feed Discussed: Yes (03/14/2016 13:15:Brooke Washburn RN) Circumcision: N/A (03/14/2016 13:15:Brooke Washburn RN) Classes Attended: No (03/14/2016 13:15:Brooke Washburn RN) Tubal Ligation: No (03/14/2016 13:15:Brooke Washburn RN) Tubal Authorization Signed: N/A (03/14/2016 13:15:Brooek Washburn RN) Consent: N/A (03/14/2016 13:15:Brooke Washburn RN) Consent Signed: N/A (03/14/2016 13:15:Brooke Washburn RN) Pain Management Plans: Natural; Epidural (03/14/2016 13:15:Brooke Washburn RN) Plans for Labor and Delivery: None (03/14/2016 13:15:Brooke Washburn RN) Support Person: Dionte Longoria (03/14/2016 13:15:Brooke Washburn RN) Support Person Relationship: (03/14/2016 13:15:Brooke Washburn RN) Cultural/Spritual Practice: No (03/14/2016 13:15:Brooke Washburn RN) Spir/Cult Dietary Needs: No (03/14/2016 13:15:Brooke Washburn RN) LIVING SITUATION/DISCHARGE PLAN Living Arrangements: House (03/14/2016 13:15:Brooke Washburn RN) Adequate Access to:: Electric; Heat; Refrigeration; Plumbing/Running water; Phone; Transportation (03/14/2016 13:15:Brooke Washburn RN) Discharge Casino Cage Cashier Person: Dionte Longoria (03/14/2016 13:15:Brooke Washburn RN) Person to Help after Discharge: iDonte Hartden (03/14/2016 13:15:Brooke Washburn RN) Currently Using Commun Resources: No (03/14/2016 13:15:Brooke Washburn RN) Outside Agency/Controls Designer: No (03/14/2016 13:15:Brooke Washburn RN) Car Seat for Discharge: Yes (03/14/2016 13:15:Brooke Washburn RN) Adoption Requested: No (03/14/2016 13:15:Brooke Washburn RN) Pt Contact w/infant Post : N/A (03/14/2016 13:15:Brooke Washburn RN) LABS Blood Type: A Positive (03/14/2016 13:15:Brooke Washburn RN) Antibody Screen: Negative (03/14/2016 13:15:Brooke Washburn RN) Group Beta Strep: Negative (03/14/2016 13:15:Brooke Washburn RN) Gonorrhea: Negative (03/14/2016 13:15:Brooke Washburn RN) Chlamydia: Negative (03/14/2016 13:15:Brooek Washburn RN) RPR/VDRL: Nonreactive (03/14/2016 13:15:Brooke Washburn RN) Hepatitis B: Negative (03/14/2016 13:15:Brooke Washburn RN) Rubella: Immune (03/14/2016 13:15:Brooke Washburn RN) OB/PREVIOUS HISTORY LMP: 05/26/2015 00:00 (03/14/2016 13:15:Brooke Washburn RN) Current Procedures: Ultrasound (03/14/2016 13:15:Brooke Washburn RN) History of Previous : No (03/14/2016 13:15:Brooke Washburn RN) History of Gestational Diabetes: No (03/14/2016 13:15:Brooke Washburn RN) History of PIH: No (03/14/2016 13:15:Brooke Washbunr RN) History of Incompetent Cervix: No (03/14/2016 13:15:Brooke Washburn RN) History of Placenta Previa/Abrup: No (03/14/2016 13:15:Brooke Washburn RN) History of Macrosomia: No (03/14/2016 13:15:Brooke Washburn RN) History of IUGR: No (03/14/2016 13:15:Brooke Washburn RN) History of Hemorrhage: No (03/14/2016 13:15:Brooke Washburn RN) History of Loss/Stillborn: No (03/14/2016 13:15:Brooke Washburn RN) History of : No (03/14/2016 13:15:Brooke Washburn RN) History of D (Rh) Sensitization: No (03/14/2016 13:15:Brooke Washburn RN) History Recurrent Loss/Stillborn: No (03/14/2016 13:15:Brooke Washburn RN) History Depression/PP Depression: No (03/14/2016 13:15:Brooke Washburn RN) History of Uterine Anomaly/LOIDA: No (03/14/2016 13:15:Brooke Washburn RN) History of Infertility: No (03/14/2016 13:15:Brooke Washburn RN) History of ART Treatment: No (03/14/2016 13:15:Brooke Washburn RN) History of LOIDA: No (03/14/2016 13:15:Brooke Washburn RN) Comments Obstetrical History: 2006 Left salpingectomy - ruptured ectopic 2010 D_C (03/14/2016 13:15:Brooke Washburn RN) MEDICAL HISTORY Med Hx Diabetes: No (03/14/2016 13:15:Brooke Washburn RN) Med Hx Hypertension: No (03/14/2016 13:15:Brooke Washburn RN) Med Hx Heart Disease: No (03/14/2016 13:15:Brooke Washburn RN) Med Hx Autoimmune Disorder: No (03/14/2016 13:15:Brooke Washburn RN) Med Hx Kidney Disease/UTI: No (03/14/2016 13:15:Brooke Washburn RN) Med Hx Neurologic/Epilepsy: No (03/14/2016 13:15:Brooke Washburn RN) Med Hx Psychiatric Disorders: No (03/14/2016 13:15:Brooke Washburn RN) Med Hx Hepatitis/Liver Disease: No (03/14/2016 13:15:Brooke Washburn RN) Med Hx Varicosities/Phlebitis: No (03/14/2016 13:15:Brooke Washburn RN) Med Hx Thyroid Dysfunction: No (03/14/2016 13:15:Brooke Washburn RN) Med Hx Trauma/Violence: No (03/14/2016 13:15:Brooke Washburn RN) Med Hx Blood Transfusion: No (03/14/2016 13:15:Brooke Washburn RN) Med Hx Pulmonary (Asthma,TB): No (03/14/2016 13:15:Brooke Washburn RN) Med Hx Breast: No (03/14/2016 13:15:Brooke Washburn RN) Med Hx ADJUSTER ELECTRICAL CONTACTS Surgery: No (03/14/2016 13:15:Brooke Washburn RN) Med Hx Hospitalization/Surgery: Yes (03/14/2016 13:15:Brooke Washburn RN) Med Hx Anesthetic Complications: No (03/14/2016 13:15:Brooke Washburn RN) Med Hx Abnormal Pap Smear: Yes (03/14/2016 13:15:Brooke Washburn RN) Other Medical Diseases: No (03/14/2016 13:15:Brooke Washburn RN) Med Hx Significant Family Hx: No (03/14/2016 13:15:Brooke Washburn RN) Details of Med/Surg Hx: abnormal pap [id number]; left salpingectomy - ruptured ectopic 2006 (03/14/2016 13:15:Brooke Washburn RN) INFECTIOUS HISTORY Inf Hx Gonorrhea: No (03/14/2016 13:15:Brooke Washburn RN) Inf Hx Chlamydia: No (03/14/2016 13:15:Brooke Washburn RN) Inf Hx Syphilis: No (03/14/2016 13:15:Brooke Washburn RN) Inf Hx HIV/AIDS: No (03/14/2016 13:15:Brooke Washburn RN) Inf Hx Human Papilloma Virus: No (03/14/2016 13:15:Brooke Washburn RN) Inf Hx Pt/Partner Genital Herpes: No (03/14/2016 13:15:Brooke Washburn RN) Inf Hx Tuberculosis/Exposure: No (03/14/2016 13:15:Brooke Washburn RN) Inf Hx Hepatitis B,C: No (03/14/2016 13:15:Brooke Washburn RN) Inf Hx Rash or Viral Illness: No (03/14/2016 13:15:Brooke Washburn RN) GENETIC HISTORY Gen Hx Age >=35 at JAMAL: No (03/14/2016 13:15:Brooke Washburn RN) Gen Hx Thalassemia: No (03/14/2016 13:15:Brooke Washburn RN) Gen Hx Congenital Heart Defect: No (03/14/2016 13:15:Brooke Washburn RN) Gen Hx Neural Tube Defect: No (03/14/2016 13:15:Brooke Washburn RN) Gen Hx Down's Syndrome: No (03/14/2016 13:15:Brooke Washburn RN) Gen Hx Low-Sachs: No (03/14/2016 13:15:Brooke Washburn RN) Gen Hx Lambert: No (03/14/2016 13:15:Brooke Washburn RN) Gen Hx Familial Dysautonomia: No (03/14/2016 13:15:Brooke Washburn RN) Gen Hx Sickle Cell Disease/Trait: No (03/14/2016 13:15:Brooke Washburn RN) Gen Hx Hemophilia/Blood Disorder: No (03/14/2016 13:15:Brooke Washburn RN) Gen Hx Muscular Dystrophy: No (03/14/2016 13:15:Brooke Washburn RN) Gen Hx Cystic Fibrosis: No (03/14/2016 13:15:Brooke Washburn RN) Gen Hx Huntingtons Chorea: No (03/14/2016 13:15:Brooke Washburn RN) Gen Hx Mental Retardation/Autism: No (03/14/2016 13:15:Brooke Washburn RN) Gen Hx Tested for Fragile X: No (03/14/2016 13:15:Brooke Washburn RN) Gen Hx Other Inher/Chromosomal: No (03/14/2016 13:15:Brooke Washburn RN) Gen Hx Maternal Metabolic DO: No (03/14/2016 13:15:Brooke Washburn RN) Gen Hx Pt Father or FOB Defect: No (03/14/2016 13:15:Brooke Washburn RN) Gen Hx Other Genetic History: No (03/14/2016 13:15:Brooke Washburn RN) Gen Hx Drugs/Meds since LMP: No (03/14/2016 13:15:Brooke Washburn RN) Details of Genetic History: 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
--- NOTE | 2016-03-21 06:17 | L&D Current Admission ---
Current Admit Datetime Report Generated by CPN: 03/21/2016 06:00 ADMISSION INFORMATION Chief Complaint: Contractions (03/14/2016 13:36:Brooke Washburn, EZIO)
--- NOTE | 2016-03-22 06:17 | L&D Current Admission ---
Current Admit Datetime Report Generated by CPN: 03/22/2016 06:00 ADMISSION INFORMATION Chief Complaint: Contractions (03/14/2016 13:36:Brooke Washburn, EZIO)
--- NOTE | 2016-03-22 06:17 | L&D General Admission ---
General Admit Datetime Report Generated by CPN: 03/22/2016 06:00 INFORMATION Patient Age: 30 (02/23/2016 10:02:QS system process) EDC: 04/01/2016 00:00 (03/14/2016 13:15:Brooke Washburn RN) LMP: 05/26/2015 00:00 (03/14/2016 13:15:Brooke Washburn RN) : 4 (03/14/2016 13:15:Brooke Washburn RN) Para: 0 (03/14/2016 13:15:Brooke Washburn RN) Term: 0 (03/14/2016 13:15:Brooke Washburn RN) Spontaneous Abortions: 2 (03/14/2016 13:15:Brooke Washburn RN) Livin (03/14/2016 13:15:Brooke Washburn RN) Ectopic: 1 (03/14/2016 13:15:Brooke Washburn RN) Baby, Number in Womb: 1 (03/14/2016 13:15:Brooke Washburn RN) CARE Primary Supervisor Blueprinting And Photocopy[facility] (03/14/2016 13:15:Brooke Washburn RN) Adequate Care: Yes (03/14/2016 13:15:Brooke Washburn RN) Prepregnancy Weight (lb): 250 (03/14/2016 13:15:Brooke Washburn RN) Prepregnancy Weight (kg): 113.6 (03/14/2016 13:15:QS system process) Height (in): 70 (03/14/2016 13:22:QS system process) ALLERGIES Medication Allergy: Yes (03/14/2016 13:15:Brooke Washburn RN) Medication Allergies: Penicillins/SV/Anaphylaxis (03/14/2016); peanut/SV/Anaphylaxis (03/14/2016) (03/14/2016 13:22:QS system process) Latex Allergy: No Latex Allergies (03/14/2016 13:15:Brooke Washburn RN) Food Allergies: Peanut (03/14/2016 13:15:Brooke Washburn RN) Environmental Allergies: Peanut (03/14/2016 13:15:Brooke Washburn RN) COMMUNICATION Primary Language: East Timorese (03/14/2016 13:15:Brooke Washburn RN) Medical Tx Preferred Language: East Timorese (03/14/2016 13:15:Brooke Washburn RN) Communication Barrier(s): None (03/14/2016 13:15:Brooke Washburn RN) DEMOGRAPHICS Address: [address] [place] [id number] (02/23/2016 10:02:QS system process) Zipcode: [address] (02/23/2016 10:02:QS system process) Home (02/23/2016 10:02:QS system process) SSN: [id number] (02/23/2016 10:02:QS system process) Next of Kin Name: DIONTE LONGORIA (02/23/2016 10:02:QS system process) Next of Kin (02/23/2016 10:02:QS system process) Next of Kin Relationship: SPO (02/23/2016 10:02:QS system process) Date of : 1985 (02/23/2016 10:02:QS system process) Marital Status: (02/23/2016 10:02:QS system process) Sex: Female (02/23/2016 10:02:QS system process) Race: (02/23/2016 10:02:QS system process) Ethnicity: Non- or (02/23/2016 10:02:QS system process) Religious: Congregational (02/23/2016 10:02:QS system process) DRUG AND ALCOHOL USE Alcohol: No (03/14/2016 13:15:Brooke Washburn RN) Cigarettes: Never Smoker. [id number] (03/14/2016 13:15:Brooke Washburn RN) Marijuana: No (03/14/2016 13:15:Brooke Washburn RN) Cocaine: No (03/14/2016 13:15:Brooke Washburn RN) Other Illicit Drugs: No (03/14/2016 13:15:Brooke Washburn RN) VACCINE HISTORY Influenza Vaccine: Yes (03/14/2016 13:15:Brooke Washburn RN) Influenza Date: Jan 2016 (03/14/2016 13:15:Brooke Washburn RN) Pneumococcal Vaccine: No (03/14/2016 13:15:Brooke Washburn RN) Tetanus Vaccine: Uncertain (03/14/2016 13:15:Brooke Washburn RN) Tdap Vaccine: Uncertain (03/14/2016 13:15:Brooke Washburn RN) Hepatitis B Vaccine: Yes (03/14/2016 13:15:Brooke Washburn RN) National Van Truck Driver: [facility] (03/14/2016 13:15:Brooke Washburn RN) Feeding Preference: Breast (03/14/2016 13:15:Brooke Washburn RN) Benefit of Breast Feed Discussed: Yes (03/14/2016 13:15:Brooke Washburn RN) Circumcision: N/A (03/14/2016 13:15:Brooke Washburn RN) Classes Attended: No (03/14/2016 13:15:Brooke Washburn RN) Tubal Ligation: No (03/14/2016 13:15:Brooke Washburn RN) Tubal Authorization Signed: N/A (03/14/2016 13:15:Brooke Washburn RN) Consent: N/A (03/14/2016 13:15:Brooke Washburn RN) Consent Signed: N/A (03/14/2016 13:15:Brooke Washburn RN) Pain Management Plans: Natural; Epidural (03/14/2016 13:15:Brooke Washburn RN) Plans for Labor and Delivery: None (03/14/2016 13:15:Brooke Washburn RN) Support Person: Dionte Longoria (03/14/2016 13:15:Brooke Washburn RN) Support Person Relationship: (03/14/2016 13:15:Brooke Washburn RN) Cultural/Spritual Practice: No (03/14/2016 13:15:Brooke Washburn RN) Spir/Cult Dietary Needs: No (03/14/2016 13:15:Brooke Washburn RN) LIVING SITUATION/DISCHARGE PLAN Living Arrangements: House (03/14/2016 13:15:Brooke Washburn RN) Adequate Access to:: Electric; Heat; Refrigeration; Plumbing/Running water; Phone; Transportation (03/14/2016 13:15:Brooke Washburn RN) Discharge Computer Aided Design Operator Person: Dionte Longoria (03/14/2016 13:15:Brooke Washburn RN) Person to Help after Discharge: Dionte Hartden (03/14/2016 13:15:Brooke Washburn RN) Currently Using Commun Resources: No (03/14/2016 13:15:Brooke Washburn RN) Outside Agency/Project Management Engineer: No (03/14/2016 13:15:Brooke Washburn RN) Car Seat for Discharge: Yes (03/14/2016 13:15:Brooke Washburn RN) Adoption Requested: No (03/14/2016 13:15:Brooke Washburn RN) Pt Contact w/infant Post : N/A (03/14/2016 13:15:Brooke Washburn RN) LABS Blood Type: A Positive (03/14/2016 13:15:Brooke Washburn RN) Antibody Screen: Negative (03/14/2016 13:15:Brooke Washburn RN) Group Beta Strep: Negative (03/14/2016 13:15:Brooke Washburn RN) Gonorrhea: Negative (03/14/2016 13:15:Brooke Washburn RN) Chlamydia: Negative (03/14/2016 13:15:Brooke Washburn RN) RPR/VDRL: Nonreactive (03/14/2016 13:15:Brooke Washburn RN) Hepatitis B: Negative (03/14/2016 13:15:Brooke Washburn RN) Rubella: Immune (03/14/2016 13:15:Brooke Washburn RN) OB/PREVIOUS HISTORY LMP: 05/26/2015 00:00 (03/14/2016 13:15:Brooke Washburn RN) Current Procedures: Ultrasound (03/14/2016 13:15:Brooke Washburn RN) History of Previous : No (03/14/2016 13:15:Brooke Washburn RN) History of Gestational Diabetes: No (03/14/2016 13:15:Brooke Washburn RN) History of PIH: No (03/14/2016 13:15:Brooke Washburn RN) History of Incompetent Cervix: No (03/14/2016 13:15:Brooke Washburn RN) History of Placenta Previa/Abrup: No (03/14/2016 13:15:Brooke Washburn RN) History of Macrosomia: No (03/14/2016 13:15:Brooke Washburn RN) History of IUGR: No (03/14/2016 13:15:Brooke Washburn RN) History of Hemorrhage: No (03/14/2016 13:15:Brooke Washburn RN) History of Loss/Stillborn: No (03/14/2016 13:15:Brooke Washburn RN) History of : No (03/14/2016 13:15:Brooke Washburn RN) History of D (Rh) Sensitization: No (03/14/2016 13:15:Brooke Washburn RN) History Recurrent Loss/Stillborn: No (03/14/2016 13:15:Brooke Washburn RN) History Depression/PP Depression: No (03/14/2016 13:15:Brooke Washburn RN) History of Uterine Anomaly/LOIDA: No (03/14/2016 13:15:Brooke Washburn RN) History of Infertility: No (03/14/2016 13:15:Brooke Washburn RN) History of ART Treatment: No (03/14/2016 13:15:Brooke Washburn RN) History of LOIDA: No (03/14/2016 13:15:Brooke Washburn RN) Comments Obstetrical History: 2006 Left salpingectomy - ruptured ectopic 2010 D_C (03/14/2016 13:15:Brooke Washburn RN) MEDICAL HISTORY Med Hx Diabetes: No (03/14/2016 13:15:Brooke Washburn RN) Med Hx Hypertension: No (03/14/2016 13:15:Brooke Washburn RN) Med Hx Heart Disease: No (03/14/2016 13:15:Brooke Washburn RN) Med Hx Autoimmune Disorder: No (03/14/2016 13:15:Brooke Washburn RN) Med Hx Kidney Disease/UTI: No (03/14/2016 13:15:Brooke Washburn RN) Med Hx Neurologic/Epilepsy: No (03/14/2016 13:15:Brooke Washburn RN) Med Hx Psychiatric Disorders: No (03/14/2016 13:15:Brooke Washburn RN) Med Hx Hepatitis/Liver Disease: No (03/14/2016 13:15:Brooke Washburn RN) Med Hx Varicosities/Phlebitis: No (03/14/2016 13:15:Brooke Washburn RN) Med Hx Thyroid Dysfunction: No (03/14/2016 13:15:Brooke Washburn RN) Med Hx Trauma/Violence: No (03/14/2016 13:15:Brooke Washburn RN) Med Hx Blood Transfusion: No (03/14/2016 13:15:Brooke Washburn RN) Med Hx Pulmonary (Asthma,TB): No (03/14/2016 13:15:Brooke Washburn RN) Med Hx Breast: No (03/14/2016 13:15:Brooke Washburn RN) Med Hx PLATER HOT DIP Surgery: No (03/14/2016 13:15:Brooke Washburn RN) Med Hx Hospitalization/Surgery: Yes (03/14/2016 13:15:Brooke Washburn RN) Med Hx Anesthetic Complications: No (03/14/2016 13:15:Brooke Washburn RN) Med Hx Abnormal Pap Smear: Yes (03/14/2016 13:15:Brooke Washburn RN) Other Medical Diseases: No (03/14/2016 13:15:Brooke Washburn RN) Med Hx Significant Family Hx: No (03/14/2016 13:15:Brooke Washburn RN) Details of Med/Surg Hx: abnormal pap [id number]; left salpingectomy - ruptured ectopic 2006 (03/14/2016 13:15:Brooke Washburn RN) INFECTIOUS HISTORY Inf Hx Gonorrhea: No (03/14/2016 13:15:Brooke Washburn RN) Inf Hx Chlamydia: No (03/14/2016 13:15:Brooke Washburn RN) Inf Hx Syphilis: No (03/14/2016 13:15:Brooke Washburn RN) Inf Hx HIV/AIDS: No (03/14/2016 13:15:Brooke Washburn RN) Inf Hx Human Papilloma Virus: No (03/14/2016 13:15:Brooke Washburn RN) Inf Hx Pt/Partner Genital Herpes: No (03/14/2016 13:15:Brooke Washburn RN) Inf Hx Tuberculosis/Exposure: No (03/14/2016 13:15:Brooke Washburn RN) Inf Hx Hepatitis B,C: No (03/14/2016 13:15:Brooke Washburn RN) Inf Hx Rash or Viral Illness: No (03/14/2016 13:15:Brooke Washburn RN) GENETIC HISTORY Gen Hx Age >=35 at JAMAL: No (03/14/2016 13:15:Brooke Washburn RN) Gen Hx Thalassemia: No (03/14/2016 13:15:Brooke Washburn RN) Gen Hx Congenital Heart Defect: No (03/14/2016 13:15:Brooke Washburn RN) Gen Hx Neural Tube Defect: No (03/14/2016 13:15:Brooke Washburn RN) Gen Hx Down's Syndrome: No (03/14/2016 13:15:Brooke Washburn RN) Gen Hx Low-Sachs: No (03/14/2016 13:15:Brooke Washburn RN) Gen Hx Lambert: No (03/14/2016 13:15:Brooke Washburn RN) Gen Hx Familial Dysautonomia: No (03/14/2016 13:15:Brooke Washburn RN) Gen Hx Sickle Cell Disease/Trait: No (03/14/2016 13:15:Brooke Washburn RN) Gen Hx Hemophilia/Blood Disorder: No (03/14/2016 13:15:Brooke Washburn RN) Gen Hx Muscular Dystrophy: No (03/14/2016 13:15:Brooke Washburn RN) Gen Hx Cystic Fibrosis: No (03/14/2016 13:15:Brooke Washburn RN) Gen Hx Huntingtons Chorea: No (03/14/2016 13:15:Brooke Washburn RN) Gen Hx Mental Retardation/Autism: No (03/14/2016 13:15:Brooke Washburn RN) Gen Hx Tested for Fragile X: No (03/14/2016 13:15:Brooke Washburn RN) Gen Hx Other Inher/Chromosomal: No (03/14/2016 13:15:Brooke Washburn RN) Gen Hx Maternal Metabolic DO: No (03/14/2016 13:15:Brooke Washburn RN) Gen Hx Pt Father or FOB Defect: No (03/14/2016 13:15:Brooke Washburn RN) Gen Hx Other Genetic History: No (03/14/2016 13:15:Brooke Washburn RN) Gen Hx Drugs/Meds since LMP: No (03/14/2016 13:15:Brooke Washburn RN) Details of Genetic History: 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
--- NOTE | 2016-03-23 06:17 | L&D Current Admission ---
Current Admit Datetime Report Generated by CPN: 03/23/2016 06:00 ADMISSION INFORMATION Chief Complaint: Contractions (03/14/2016 13:36:Brooke Washburn, EZIO)
--- NOTE | 2016-03-23 06:17 | L&D General Admission ---
General Admit Datetime Report Generated by CPN: 03/23/2016 06:00 INFORMATION Patient Age: 30 (02/23/2016 10:02:QS system process) EDC: 04/01/2016 00:00 (03/14/2016 13:15:Brooke Washburn RN) LMP: 05/26/2015 00:00 (03/14/2016 13:15:Brooke Washburn RN) : 4 (03/14/2016 13:15:Brooke Washburn RN) Para: 0 (03/14/2016 13:15:Brooke Washburn RN) Term: 0 (03/14/2016 13:15:Brooke Washburn RN) Spontaneous Abortions: 2 (03/14/2016 13:15:Brooke Washburn RN) Livin (03/14/2016 13:15:Brooke Washburn RN) Ectopic: 1 (03/14/2016 13:15:Brooke Washburn RN) Baby, Number in Womb: 1 (03/14/2016 13:15:Brooke Washburn RN) CARE Primary Hat Liner: [facility] (03/14/2016 13:15:Brooke Washburn RN) Adequate Care: Yes (03/14/2016 13:15:Brooke Washburn RN) Prepregnancy Weight (lb): 250 (03/14/2016 13:15:Brooke Washburn RN) Prepregnancy Weight (kg): 113.6 (03/14/2016 13:15:QS system process) Height (in): 70 (03/14/2016 13:22:QS system process) ALLERGIES Medication Allergy: Yes (03/14/2016 13:15:Brooke Washburn RN) Medication Allergies: Penicillins/SV/Anaphylaxis (03/14/2016); peanut/SV/Anaphylaxis (03/14/2016) (03/14/2016 13:22:QS system process) Latex Allergy: No Latex Allergies (03/14/2016 13:15:Brooke Washburn RN) Food Allergies: Peanut (03/14/2016 13:15:Brooke Washburn RN) Environmental Allergies: Peanut (03/14/2016 13:15:Brooke Washburn RN) COMMUNICATION Primary Language: Turkmen (03/14/2016 13:15:Brooke Washburn RN) Medical Tx Preferred Language: Turkmen (03/14/2016 13:15:Brooke Washburn RN) Communication Barrier(s): None (03/14/2016 13:15:Brooke Washburn RN) DEMOGRAPHICS Address: [address] [place] [id number] (02/23/2016 10:02:QS system process) Zipcode: [address] (02/23/2016 10:02:QS system process) Home (02/23/2016 10:02:QS system process) SSN: [id number] (02/23/2016 10:02:QS system process) Next of Kin Name: DIONTE LONGORIA (02/23/2016 10:02:QS system process) Next of Kin (02/23/2016 10:02:QS system process) Next of Kin Relationship: SPO (02/23/2016 10:02:QS system process) Date of : 1985 (02/23/2016 10:02:QS system process) Marital Status: (02/23/2016 10:02:QS system process) Sex: Female (02/23/2016 10:02:QS system process) Race: (02/23/2016 10:02:QS system process) Ethnicity: Non- or (02/23/2016 10:02:QS system process) Mandaen: Voodoo (02/23/2016 10:02:QS system process) DRUG AND ALCOHOL USE Alcohol: No (03/14/2016 13:15:Brooke Washburn RN) Cigarettes: Never Smoker. [id number] (03/14/2016 13:15:Brooke Washburn RN) Marijuana: No (03/14/2016 13:15:Brooke Washburn RN) Cocaine: No (03/14/2016 13:15:Brooke Washburn RN) Other Illicit Drugs: No (03/14/2016 13:15:Brooke Washburn RN) VACCINE HISTORY Influenza Vaccine: Yes (03/14/2016 13:15:Brooke Washburn RN) Influenza Date: Jan 2016 (03/14/2016 13:15:Brooke Washburn RN) Pneumococcal Vaccine: No (03/14/2016 13:15:Brooke Washburn RN) Tetanus Vaccine: Uncertain (03/14/2016 13:15:Brooke Washburn RN) Tdap Vaccine: Uncertain (03/14/2016 13:15:Brooke Washburn RN) Hepatitis B Vaccine: Yes (03/14/2016 13:15:Brooke Washburn RN) Alignment Technician: [facility] (03/14/2016 13:15:Brooke Washburn RN) Feeding Preference: Breast (03/14/2016 13:15:Brooke Washburn RN) Benefit of Breast Feed Discussed: Yes (03/14/2016 13:15:Brooke Washburn RN) Circumcision: N/A (03/14/2016 13:15:Brooke Washburn RN) Classes Attended: No (03/14/2016 13:15:Brooke Washburn RN) Tubal Ligation: No (03/14/2016 13:15:Brooke Washburn RN) Tubal Authorization Signed: N/A (03/14/2016 13:15:Brooke Washburn RN) Consent: N/A (03/14/2016 13:15:Brooke Washburn RN) Consent Signed: N/A (03/14/2016 13:15:Brooke Washburn RN) Pain Management Plans: Natural; Epidural (03/14/2016 13:15:Brooke Washburn RN) Plans for Labor and Delivery: None (03/14/2016 13:15:Brooke Washburn RN) Support Person: Dionte Longoria (03/14/2016 13:15:Brooke Washburn RN) Support Person Relationship: (03/14/2016 13:15:Brooke Washburn RN) Cultural/Spritual Practice: No (03/14/2016 13:15:Brooke Washburn RN) Spir/Cult Dietary Needs: No (03/14/2016 13:15:Brooke Washburn RN) LIVING SITUATION/DISCHARGE PLAN Living Arrangements: House (03/14/2016 13:15:Brooke Washburn RN) Adequate Access to:: Electric; Heat; Refrigeration; Plumbing/Running water; Phone; Transportation (03/14/2016 13:15:Brooke Washburn RN) Discharge Self Contained Behavior Unit Teacher Person: Dionte Longoria (03/14/2016 13:15:Brooke Washburn RN) Person to Help after Discharge: Dionte Hartden (03/14/2016 13:15:Brooke Washburn RN) Currently Using Commun Resources: No (03/14/2016 13:15:Brooke Washburn RN) Outside Agency/Wire Stitcher Operator: No (03/14/2016 13:15:Brooke Washburn RN) Car Seat for Discharge: Yes (03/14/2016 13:15:Brooke Washburn RN) Adoption Requested: No (03/14/2016 13:15:Brooke Washburn RN) Pt Contact w/infant Post : N/A (03/14/2016 13:15:Brooke Washburn RN) LABS Blood Type: A Positive (03/14/2016 13:15:Brooke Washburn RN) Antibody Screen: Negative (03/14/2016 13:15:Brooke Washburn RN) Group Beta Strep: Negative (03/14/2016 13:15:Brooke Washburn RN) Gonorrhea: Negative (03/14/2016 13:15:Brooke Washburn RN) Chlamydia: Negative (03/14/2016 13:15:Brooke Washburn RN) RPR/VDRL: Nonreactive (03/14/2016 13:15:Brooke Washburn RN) Hepatitis B: Negative (03/14/2016 13:15:Brooke Washburn RN) Rubella: Immune (03/14/2016 13:15:Brooke Washburn RN) OB/PREVIOUS HISTORY LMP: 05/26/2015 00:00 (03/14/2016 13:15:Brooke Washburn RN) Current Procedures: Ultrasound (03/14/2016 13:15:Brooke Washburn RN) History of Previous : No (03/14/2016 13:15:Brooke Washburn RN) History of Gestational Diabetes: No (03/14/2016 13:15:Brooke Washburn RN) History of PIH: No (03/14/2016 13:15:Brooke Washburn RN) History of Incompetent Cervix: No (03/14/2016 13:15:Brooke Washburn RN) History of Placenta Previa/Abrup: No (03/14/2016 13:15:Brooke Washburn RN) History of Macrosomia: No (03/14/2016 13:15:Brooke Washburn RN) History of IUGR: No (03/14/2016 13:15:Brooke Washburn RN) History of Hemorrhage: No (03/14/2016 13:15:Brooke Washburn RN) History of Loss/Stillborn: No (03/14/2016 13:15:Brooke Washburn RN) History of : No (03/14/2016 13:15:Brooke Washburn RN) History of D (Rh) Sensitization: No (03/14/2016 13:15:Brooke Washburn RN) History Recurrent Loss/Stillborn: No (03/14/2016 13:15:Brooke Washburn RN) History Depression/PP Depression: No (03/14/2016 13:15:Brooke Washburn RN) History of Uterine Anomaly/LOIDA: No (03/14/2016 13:15:Brooke Washburn RN) History of Infertility: No (03/14/2016 13:15:Brooke Washburn RN) History of ART Treatment: No (03/14/2016 13:15:Brooke Washburn RN) History of LOIDA: No (03/14/2016 13:15:Brooke Washburn RN) Comments Obstetrical History: 2006 Left salpingectomy - ruptured ectopic 2010 D_C (03/14/2016 13:15:Brooke Washburn RN) MEDICAL HISTORY Med Hx Diabetes: No (03/14/2016 13:15:Brooke Washburn RN) Med Hx Hypertension: No (03/14/2016 13:15:Brooke Washburn RN) Med Hx Heart Disease: No (03/14/2016 13:15:Brooke Washburn RN) Med Hx Autoimmune Disorder: No (03/14/2016 13:15:Brooke Washburn RN) Med Hx Kidney Disease/UTI: No (03/14/2016 13:15:Brooke Washburn RN) Med Hx Neurologic/Epilepsy: No (03/14/2016 13:15:Brooke Washburn RN) Med Hx Psychiatric Disorders: No (03/14/2016 13:15:Brooke Washburn RN) Med Hx Hepatitis/Liver Disease: No (03/14/2016 13:15:Brooke Washburn RN) Med Hx Varicosities/Phlebitis: No (03/14/2016 13:15:Brooke Washburn RN) Med Hx Thyroid Dysfunction: No (03/14/2016 13:15:Brooke Washburn RN) Med Hx Trauma/Violence: No (03/14/2016 13:15:Brooke Washburn RN) Med Hx Blood Transfusion: No (03/14/2016 13:15:Brooke Washburn RN) Med Hx Pulmonary (Asthma,TB): No (03/14/2016 13:15:Brooke Washburn RN) Med Hx Breast: No (03/14/2016 13:15:Brooke Washburn RN) Med Hx BAG BUILDER Surgery: No (03/14/2016 13:15:Brooke Washburn RN) Med Hx Hospitalization/Surgery: Yes (03/14/2016 13:15:Brooke Washburn RN) Med Hx Anesthetic Complications: No (03/14/2016 13:15:Brooke Washburn RN) Med Hx Abnormal Pap Smear: Yes (03/14/2016 13:15:Brooke Washburn RN) Other Medical Diseases: No (03/14/2016 13:15:Brooke Washburn RN) Med Hx Significant Family Hx: No (03/14/2016 13:15:Brooke Washburn RN) Details of Med/Surg Hx: abnormal pap [id number]; left salpingectomy - ruptured ectopic 2006 (03/14/2016 13:15:Brooke Washburn RN) INFECTIOUS HISTORY Inf Hx Gonorrhea: No (03/14/2016 13:15:Brooke Washburn RN) Inf Hx Chlamydia: No (03/14/2016 13:15:Brooke Washburn RN) Inf Hx Syphilis: No (03/14/2016 13:15:Brooke Washburn RN) Inf Hx HIV/AIDS: No (03/14/2016 13:15:Brooke Washburn RN) Inf Hx Human Papilloma Virus: No (03/14/2016 13:15:Brooke Washburn RN) Inf Hx Pt/Partner Genital Herpes: No (03/14/2016 13:15:Brooke Washburn RN) Inf Hx Tuberculosis/Exposure: No (03/14/2016 13:15:Brooke Washburn RN) Inf Hx Hepatitis B,C: No (03/14/2016 13:15:Brooke Washburn RN) Inf Hx Rash or Viral Illness: No (03/14/2016 13:15:Brooke Washburn RN) GENETIC HISTORY Gen Hx Age >=35 at JAMAL: No (03/14/2016 13:15:Brooke Washburn RN) Gen Hx Thalassemia: No (03/14/2016 13:15:Brooke Washburn RN) Gen Hx Congenital Heart Defect: No (03/14/2016 13:15:Brooke Washburn RN) Gen Hx Neural Tube Defect: No (03/14/2016 13:15:Brooke Washburn RN) Gen Hx Down's Syndrome: No (03/14/2016 13:15:Brooke Washburn RN) Gen Hx Low-Sachs: No (03/14/2016 13:15:Brooke Washburn RN) Gen Hx Lambert: No (03/14/2016 13:15:Brooke Washburn RN) Gen Hx Familial Dysautonomia: No (03/14/2016 13:15:Brooke Washburn RN) Gen Hx Sickle Cell Disease/Trait: No (03/14/2016 13:15:Brooke Washburn RN) Gen Hx Hemophilia/Blood Disorder: No (03/14/2016 13:15:Brooke Washburn RN) Gen Hx Muscular Dystrophy: No (03/14/2016 13:15:Brooke Washburn RN) Gen Hx Cystic Fibrosis: No (03/14/2016 13:15:Brooke Washburn RN) Gen Hx Huntingtons Chorea: No (03/14/2016 13:15:Brooke Washburn RN) Gen Hx Mental Retardation/Autism: No (03/14/2016 13:15:Brooke Washburn RN) Gen Hx Tested for Fragile X: No (03/14/2016 13:15:Brooke Washburn RN) Gen Hx Other Inher/Chromosomal: No (03/14/2016 13:15:Brooke Washburn RN) Gen Hx Maternal Metabolic DO: No (03/14/2016 13:15:Brooke Washburn RN) Gen Hx Pt Father or FOB Defect: No (03/14/2016 13:15:Brooke Washburn RN) Gen Hx Other Genetic History: No (03/14/2016 13:15:Brooke Washburn RN) Gen Hx Drugs/Meds since LMP: No (03/14/2016 13:15:Brooke Washburn RN) Details of Genetic History: 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
== END 2016-03-14 14:55 | disposition home or self-care (01) ==
LOC: LC 13:09
PROVIDERS: ATTEND Obstetrics & Gynecology
PROC: 4A1HXCZ Monitoring of Products of Conception, Cardiac Rate, External Approach (ICD-10-PCS; principal; 2016-03-14)
DX: O47.1 False labor at or after 37 completed weeks of gestation (principal); O23.43 Unspecified infection of urinary tract in pregnancy, third trimester; Z3A.37 37 weeks gestation of pregnancy
CPT/HCPCS: 59025; 81005; G0479; J3490 ×2; 80307; J8499

== ENCOUNTER 2016-04-04 10:38 | Outpatient (CLI) | payer MEDICAID | END 2016-04-04 11:42 | disposition home or self-care (01) | LOC: LC 10:38 | PROVIDERS: ATTEND Obstetrics & Gynecology | DX: Z34.93 Encounter for supervision of normal pregnancy, unspecified, third trimester (principal); Z3A.40 40 weeks gestation of pregnancy | CPT/HCPCS: 59025 ==

== ENCOUNTER 2016-04-05 03:39 | Inpatient (IN) | payer MEDICAID ==
--- NOTE | 2016-04-05 03:44 | Non Stress Test Report ---
Non Stress Test Datetime Report Generated by CPN: 04/05/2016 03:44 DEMOGRAPHIC EGA NST: 40.3 INDICATION Indication for Study: Ordered by Provider Indication for Study (NST) Other: postdates MONITORING Monitor Explained: Monitor Explained; Test Explained; Patient Verbalized Understanding Time on Monitor: 04/04/2016 10:50 Time off Monitor: 04/04/2016 11:31 NST Duration: 41 NST INTERVENTIONS NST Interventions: PO Hydration; Reposition Patient BABY A: [id number] Movement : Present Contraction Frequency : 0 FHR Baseline : 135 Accelerations : 15X15 Decelerations : None Variability : Moderate 6-25bpm NST Review: Meets Criteria for Reactive NST NST Review and Verified By : EZIO RIVERAT Results: Reactive NST REPORT Report Trigger: Send Report
[2016-04-05 04:37] LABS: ABSOLUTE EOSINOPHILS # (AUTO) 0.1 10^3/uL (0.0-0.6); ABSOLUTE LYMPHOCYTES (AUTO) 1.7 10^3/uL (0.5-4.7); ABSOLUTE MONOCYTES (AUTO) 0.7 10^3/uL (0.1-1.4); ABSOLUTE NEUT (AUTO) 8.3 10^3/uL (1.7-8.2); BASOPHILS % (AUTO) 0.4 % (0-2); EOSINOPHILS % (AUTO) 0.6 % (0-6); HEMATOCRIT 30.5 % (36.0-47.0); HEMOGLOBIN 10.2 g/dL (12.0-15.5); HGB HCT DIFFERENCE 0.1; MEAN CORPUSCULAR HEMOGLOBIN 27.8 pg (27.0-33.4); MEAN CORPUSCULAR HGB CONC 33.4 g/dL (32.0-36.0); MEAN CORPUSCULAR VOLUME 83 fl (80-97); MONOCYTES % (AUTO) 6.1 % (3-13); RED BLOOD COUNT 3.66 10^6/uL (3.72-5.28); RED CELL DISTRIBUTION WIDTH 15.3 % (11.5-14.0); SEGMENTED NEUTROPHILS % (AUTO) 76.9 % (42-78); WHITE BLOOD COUNT 10.8 10^3/uL (4.0-10.5)
[2016-04-05 04:38] LABS: APPEARANCE,URINE CLOUDY; BILIRUBIN,URINE NEGATIVE (NEGATIVE); GLUCOSE, URINE NEGATIVE (NEGATIVE); KETONES,URINE NEGATIVE (NEGATIVE); LEUKOCYTE ESTERASE,URINE LARGE (NEGATIVE); NITRITE,URINE NEGATIVE (NEGATIVE); PROTEIN,URINE 30 mg/dL (NEGATIVE); URINE SPECIFIC GRAVITY 1.019; UROBILINOGEN,URINE NEGATIVE mg/dL (<2.0)
[2016-04-05 04:54] LABS: URINE BARBITURATES SCREEN NEGATIVE; URINE METHADONE SCREEN NEGATIVE; URINE PHENCYCLIDINE SCREEN NEGATIVE
[2016-04-05] MEDS ORDERED: RINGERS SOLUTION,LACTATED 1,000 ML IV PRN (05:19)
[2016-04-05] MEDS ORDERED: OXYTOCIN/NORMAL SALINE 20 UNIT/1,000 ML RTUINJ ONE ×2 (05:49→12:06)
[2016-04-05] MEDS: OXYTOCIN/NORMAL SALINE 1,000 ML IV PRN ×2 (06:07→12:34)
--- NOTE | 2016-04-05 06:23 | L&D General Admission ---
General Admit Datetime Report Generated by CPN: 04/05/2016 06:00 INFORMATION Patient Age: 30 (02/23/2016 10:02:QS system process) EDC: 04/01/2016 00:00 (03/14/2016 13:15:Brooke Washburn RN) LMP: 05/26/2015 00:00 (03/14/2016 13:15:Brooke Washburn RN) : 4 (03/14/2016 13:15:Brooke Washburn RN) Para: 0 (03/14/2016 13:15:Brooke Washburn RN) Term: 0 (03/14/2016 13:15:Brooke Washburn RN) Spontaneous Abortions: 2 (03/14/2016 13:15:Brooke Washburn RN) Livin (03/14/2016 13:15:Brooke Washburn RN) Ectopic: 1 (03/14/2016 13:15:Brooke Washburn RN) Baby, Number in Womb: 1 (03/14/2016 13:15:Brooke Washburn RN) CARE Primary Lieutenant Colonel: [facility] (03/14/2016 13:15:Brooke Washburn RN) Adequate Care: Yes (03/14/2016 13:15:Brooke Washburn RN) Prepregnancy Weight (lb): 250 (03/14/2016 13:15:Brooke Washburn RN) Prepregnancy Weight (kg): 113.6 (03/14/2016 13:15:QS system process) Height (in): 70 (04/05/2016 04:53:QS system process) ALLERGIES Medication Allergy: Yes (03/14/2016 13:15:Brooke Washburn RN) Medication Allergies: Penicillins/SV/Anaphylaxis (03/14/2016); peanut/SV/Anaphylaxis (03/14/2016) (03/14/2016 13:22:QS system process) Latex Allergy: No Latex Allergies (03/14/2016 13:15:Brooke Washburn RN) Food Allergies: Peanut (03/14/2016 13:15:Brooke Washburn RN) Environmental Allergies: Peanut (03/14/2016 13:15:Brooke Washburn RN) COMMUNICATION Primary Language: S[place]an (03/14/2016 13:15:Brooke Washburn RN) Medical Tx Preferred Language: [place] (03/14/2016 13:15:Brooke Washburn RN) Communication Barrier(s): None (03/14/2016 13:15:Brooke Washburn RN) DEMOGRAPHICS Address: [address] [place] [id number] (02/23/2016 10:02:QS system process) Zipcode: [address] (02/23/2016 10:02:QS system process) Home (02/23/2016 10:02:QS system process) SSN: [id number] (02/23/2016 10:02:QS system process) Next of Kin Name: DIONTE LONGORIA (02/23/2016 10:02:QS system process) Next of Kin (02/23/2016 10:02:QS system process) Next of Kin Relationship: SPO (02/23/2016 10:02:QS system process) Date of : 1985 (02/23/2016 10:02:QS system process) Marital Status: (02/23/2016 10:02:QS system process) Sex: Female (02/23/2016 10:02:QS system process) Race: (02/23/2016 10:02:QS system process) Ethnicity: Non- or (02/23/2016 10:02:QS system process) Mormon: Yarsanism (02/23/2016 10:02:QS system process) DRUG AND ALCOHOL USE Alcohol: No (03/14/2016 13:15:Brooke Washburn RN) Cigarettes: Never Smoker. [id number] (03/14/2016 13:15:Brooke Washburn RN) Marijuana: No (03/14/2016 13:15:Brooke Washburn RN) Cocaine: No (03/14/2016 13:15:Brooke Washburn RN) Other Illicit Drugs: No (03/14/2016 13:15:Brooke Washburn RN) VACCINE HISTORY Influenza Vaccine: Yes (03/14/2016 13:15:Brooke Washburn RN) Influenza Date: Jan 2016 (03/14/2016 13:15:Brooke Washburn RN) Pneumococcal Vaccine: No (03/14/2016 13:15:Brooke Washburn RN) Tetanus Vaccine: Uncertain (03/14/2016 13:15:Brooke Washburn RN) Tdap Vaccine: Uncertain (03/14/2016 13:15:Brooke Washburn RN) Hepatitis B Vaccine: Yes (03/14/2016 13:15:Brooke Washburn RN) Front Desk Team Member: [facility] (03/14/2016 13:15:Brooke Washburn RN) Feeding Preference: Breast (03/14/2016 13:15:Brooke Washburn RN) Benefit of Breast Feed Discussed: Yes (03/14/2016 13:15:Brooke Washburn RN) Circumcision: N/A (03/14/2016 13:15:Brooke Washburn RN) Classes Attended: No (03/14/2016 13:15:Brooke Washburn RN) Tubal Ligation: No (03/14/2016 13:15:Brooke Washburn RN) Tubal Authorization Signed: N/A (03/14/2016 13:15:Brooke Washburn RN) Consent: N/A (03/14/2016 13:15:Brooke Washburn RN) Consent Signed: N/A (03/14/2016 13:15:Brooke Washburn RN) Pain Management Plans: Natural; Epidural (03/14/2016 13:15:Brooke Washburn RN) Plans for Labor and Delivery: None (03/14/2016 13:15:Brooke Washburn RN) Support Person: Dionte Longoria (03/14/2016 13:15:Brooke Washburn RN) Support Person Relationship: (03/14/2016 13:15:Brooke Washburn RN) Cultural/Spritual Practice: No (03/14/2016 13:15:Brooke Washburn RN) Spir/Cult Dietary Needs: No (03/14/2016 13:15:Brooke Washburn RN) LIVING SITUATION/DISCHARGE PLAN Living Arrangements: House (03/14/2016 13:15:Brooke Washburn RN) Adequate Access to:: Electric; Heat; Refrigeration; Plumbing/Running water; Phone; Transportation (03/14/2016 13:15:Brooke Washburn RN) Discharge Leather Worker Person: Dionte Longoria (03/14/2016 13:15:Brooke Washburn RN) Person to Help after Discharge: Dionte Hartden (03/14/2016 13:15:Brooke Washburn RN) Currently Using Commun Resources: No (03/14/2016 13:15:Brooke Washburn RN) Outside Agency/Mentally Impaired Teacher: No (03/14/2016 13:15:Brooke Washburn RN) Car Seat for Discharge: Yes (03/14/2016 13:15:Brooke Washburn RN) Adoption Requested: No (03/14/2016 13:15:Brooke Washburn RN) Pt Contact w/ Post : N/A (03/14/2016 13:15:Brooke Washburn RN) LABS Blood Type: A Positive (03/14/2016 13:15:Brooke Washburn RN) Antibody Screen: Negative (03/14/2016 13:15:Brooke Washburn RN) Hemoglobin: 10.2 L (04/05/2016 04:15:QS system process) Hematocrit: 30.5 L (04/05/2016 04:15:QS system process) MCV: 83 (04/05/2016 04:15:QS system process) Group Beta Strep: Negative (03/14/2016 13:15:Brooke Washburn RN) Gonorrhea: Negative (03/14/2016 13:15:Brooke Washburn RN) Chlamydia: Negative (03/14/2016 13:15:Brooke Washburn RN) RPR/VDRL: Nonreactive (03/14/2016 13:15:Brooke Washburn RN) Hepatitis B: Negative (03/14/2016 13:15:Brooke Washburn RN) Rubella: Immune (03/14/2016 13:15:Brooke Washburn RN) OB/PREVIOUS HISTORY LMP: 05/26/2015 00:00 (03/14/2016 13:15:Brooke Washburn RN) Current Procedures: Ultrasound (03/14/2016 13:15:Brooke Washburn RN) History of Previous : No (03/14/2016 13:15:Brooke Washburn RN) History of Gestational Diabetes: No (03/14/2016 13:15:Brooke Washburn RN) History of PIH: No (03/14/2016 13:15:Brooke Washburn RN) History of Incompetent Cervix: No (03/14/2016 13:15:Brooke Washburn RN) History of Placenta Previa/Abrup: No (03/14/2016 13:15:Brooke Washburn RN) History of Macrosomia: No (03/14/2016 13:15:Brooke Washburn RN) History of IUGR: No (03/14/2016 13:15:Brooke Washburn RN) History of Hemorrhage: No (03/14/2016 13:15:Brooke Washburn RN) History of Loss/Stillborn: No (03/14/2016 13:15:Brooke Washburn RN) History of : No (03/14/2016 13:15:Brooke Washburn RN) History of D (Rh) Sensitization: No (03/14/2016 13:15:Brooke Washburn RN) History Recurrent Loss/Stillborn: No (03/14/2016 13:15:Brooke Washburn RN) History Depression/PP Depression: No (03/14/2016 13:15:Brooke Washburn RN) History of Uterine Anomaly/LOIDA: No (03/14/2016 13:15:Brooke Washburn RN) History of Infertility: No (03/14/2016 13:15:Brooke Washburn RN) History of ART Treatment: No (03/14/2016 13:15:Brooke Washburn RN) History of LOIDA: No (03/14/2016 13:15:Brooke Washburn RN) Comments Obstetrical History: 2006 Left salpingectomy - ruptured ectopic 2010 D_C (03/14/2016 13:15:Brooke Washburn RN) MEDICAL HISTORY Med Hx Diabetes: No (03/14/2016 13:15:Brooke Washburn RN) Med Hx Hypertension: No (03/14/2016 13:15:Brooke Washburn RN) Med Hx Heart Disease: No (03/14/2016 13:15:Brooke Washburn RN) Med Hx Autoimmune Disorder: No (03/14/2016 13:15:Brooke Washburn RN) Med Hx Kidney Disease/UTI: No (03/14/2016 13:15:Brooke Washburn RN) Med Hx Neurologic/Epilepsy: No (03/14/2016 13:15:Brooke Washburn RN) Med Hx Psychiatric Disorders: No (03/14/2016 13:15:Brooke Washburn RN) Med Hx Hepatitis/Liver Disease: No (03/14/2016 13:15:Brooke Washburn RN) Med Hx Varicosities/Phlebitis: No (03/14/2016 13:15:Brooke Washburn RN) Med Hx Thyroid Dysfunction: No (03/14/2016 13:15:Brooke Washburn RN) Med Hx Trauma/Violence: No (03/14/2016 13:15:Brooke Washburn RN) Med Hx Blood Transfusion: No (03/14/2016 13:15:Brooke Washburn RN) Med Hx Pulmonary (Asthma,TB): No (03/14/2016 13:15:Brooke Washburn RN) Med Hx Breast: No (03/14/2016 13:15:Brooke Washburn RN) Med Hx 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 (03/14/2016 13:15:Brooke Washburn RN) Med Hx Hospitalization/Surgery: Yes (03/14/2016 13:15:Brooke Washburn RN) Med Hx Anesthetic Complications: No (03/14/2016 13:15:Brooke Washburn RN) Med Hx Abnormal Pap Smear: Yes (03/14/2016 13:15:Brooke Washburn RN) Other Medical Diseases: No (03/14/2016 13:15:Brooke Washburn RN) Med Hx Significant Family Hx: No (03/14/2016 13:15:Brooke Washburn RN) Details of Med/Surg Hx: abnormal pap [id number]; left salpingectomy - ruptured ectopic 2005 (03/14/2016 13:15:Brooke Washburn RN) INFECTIOUS HISTORY Inf Hx Gonorrhea: No (03/14/2016 13:15:Brooke Washburn RN) Inf Hx Chlamydia: No (03/14/2016 13:15:Brooke Washburn RN) Inf Hx Syphilis: No (03/14/2016 13:15:Brooke Washburn RN) Inf Hx HIV/AIDS: No (03/14/2016 13:15:Brooke Washburn RN) Inf Hx Human Papilloma Virus: No (03/14/2016 13:15:Brooke Washburn RN) Inf Hx Pt/Partner Genital Herpes: No (03/14/2016 13:15:Brooke Washburn RN) Inf Hx Tuberculosis/Exposure: No (03/14/2016 13:15:Brooke Washburn RN) Inf Hx Hepatitis B,C: No (03/14/2016 13:15:Brooke Washburn RN) Inf Hx Rash or Viral Illness: No (03/14/2016 13:15:Brooke Washburn RN) GENETIC HISTORY Gen Hx Age >=35 at JAMAL: No (03/14/2016 13:15:Brooke Washburn RN) Gen Hx Thalassemia: No (03/14/2016 13:15:Brooke Washburn RN) Gen Hx Congenital Heart Defect: No (03/14/2016 13:15:Brooke Washburn RN) Gen Hx Neural Tube Defect: No (03/14/2016 13:15:Brooke Washburn RN) Gen Hx Down's Syndrome: No (03/14/2016 13:15:Boroke Washburn RN) Gen Hx Low-Sachs: No (03/14/2016 13:15:Brooke Washbrun RN) Gen Hx Lambert: No (03/14/2016 13:15:Brooke Washburn RN) Gen Hx Familial Dysautonomia: No (03/14/2016 13:15:Brooke Washburn RN) Gen Hx Sickle Cell Disease/Trait: No (03/14/2016 13:15:Brooke Washburn RN) Gen Hx Hemophilia/Blood Disorder: No (03/14/2016 13:15:Brooke Washburn RN) Gen Hx Muscular Dystrophy: No (03/14/2016 13:15:Brooke Washburn RN) Gen Hx Cystic Fibrosis: No (03/14/2016 13:15:Brooke Washburn RN) Gen Hx Huntingtons Chorea: No (03/14/2016 13:15:Brooke Washburn RN) Gen Hx Mental Retardation/Autism: No (03/14/2016 13:15:Brooke Washburn RN) Gen Hx Tested for Fragile X: No (03/14/2016 13:15:Brooke Washburn RN) Gen Hx Other Inher/Chromosomal: No (03/14/2016 13:15:Brooke Washburn RN) Gen Hx Maternal Metabolic DO: No (03/14/2016 13:15:Brooke Washburn RN) Gen Hx Pt Father or FOB Defect: No (03/14/2016 13:15:Brooke Washburn RN) Gen Hx Other Genetic History: No (03/14/2016 13:15:Brooke Washburn RN) Gen Hx Drugs/Meds since LMP: No (03/14/2016 13:15:Brooke Washburn RN) Details of Genetic History: current being monitored at [facility] for arrhythimia (bigeminy) - resolved, she states (03/14/2016 13:15:Brooke Washburn RN)
--- NOTE | 2016-04-05 08:00 | L&D Flow Sheet ---
LD Flowsheet Datetime Report Generated by CPN: 04/05/2016 08:00 Datetime: 04/05/2016 07:41 Level of Consciousness: Fully Conscious (Daphne Kim, RN) DTR's/Clonus: DTRs 2+; No Clonus (Daphne Kim, RN) Headache: Denies (Daphne Kim, RN) Breath Sounds, Left: Clear and Equal (Daphne Kim, RN) Breath Sounds, Right: Clear and Equal (Daphne Kim, RN) Nausea/Vomiting: Denies (Daphne Kim, RN) RUQ Epigastric Pain: Denies (Daphne Kim, RN) Datetime: 04/05/2016 07:33 Patient Position/Activity: Left Tilt; Low Fowlers (Daphne Julio, RN) Datetime: 04/05/2016 07:28 I/O Interventions: Up to BR (Daphne Julio, RN) Datetime: 04/05/2016 07:18 Communication Comments: report received from O. Ledgerwood, RN (Daphne Julio, RN) Datetime: 04/05/2016 07:17 Communication: Report Given to Pikny Kim RN (Sharon Ethelgerwood, RN) Datetime: 04/05/2016 07:02 NBP Sys/Anabela/Mean (mmHg): 125 (QS system process) : 64 (QS system process) : 89 (QS system process) Pulse: 90 (QS system process) LaborFlag: Antepartum (QS system process) Datetime: 04/05/2016 07:00 Monitor Mode: External; Palpation (Sharonjack Davenportgerwood, RN) Frequency (min): irreg (Sharon Ledgerwood, RN) Quality: Mild (Sharon Ledgerwood, RN) Duration (sec): 50-70 (Sharon Ledgerwood, RN) Duration Criteria: Less than Two 120 Second Contractions (Sharon Ledgerwood, RN) Pattern: Normal: <= 5 Contractions in 10 Minutes (Sharon Ledgerwood, RN) Resting Tone (Palpate): Relaxed (Sharon Ledgerwood, RN) Monitor Mode: External US (Sharon Webb, RN) FHR Baseline Rate : 130 (Sharon Ledgerwood, RN) FHR Baseline Changes: No Baseline Change (Sharon Ledgerwood, RN) Variability: Moderate 6-25 bpm (Sharon Ledgerwood, RN) Accelerations: 15X15 (Sharon Ledgerwood, RN) Decelerations: None (Sharon Ledgerwood, RN) Pitocin (milliunit): Pitocin Increased to (milliunits) @ 6 (Sharon Ledgerwood, RN) Datetime: 04/05/2016 06:45 Monitor Mode: External; Palpation (Sharon Ledgerwood, RN) Frequency (min): irreg (Sharon Ledgerwood, RN) Quality: Mild (Sharon Ledgerwood, RN) Duration (sec): 80-120 (Sharon Ledgerwood, RN) Duration Criteria: Less than Two 120 Second Contractions (Hsaron Ledgerwood, RN) Pattern: Normal: <= 5 Contractions in 10 Minutes (Sharon Ledgerwood, RN) Resting Tone (Palpate): Relaxed (Sharon Ledgerwood, RN) Monitor Mode: External US (Sharon Ledgerwood, RN) FHR Baseline Rate : 130 (Sharon Ledgerwood, RN) FHR Baseline Changes: No Baseline Change (Sharon Ledgerwood, RN) Variability: Moderate 6-25 bpm (Sharon Ledgerwood, RN) Accelerations: 15X15 (Sharon Ledgerwood, RN) Decelerations: None (Sharon Ledgerwood, RN) Pitocin (milliunit): Pitocin Remains (milliunits) @ 4 (Sharon Ledgerwood, RN) Datetime: 04/05/2016 06:32 NBP Sys/Anabela/Mean (mmHg): 115 (QS system process) : 68 (QS system process) : 83 (QS system process) Pulse: 89 (QS system process) Respirations: 15 (Sharon Ledgerwood, RN) LaborFlag: Antepartum (QS system process) Datetime: 04/05/2016 06:30 Monitor Mode: External; Palpation (Sharon Ledgerwood, RN) Frequency (min): irreg (Sharon Ledgerwood, RN) Quality: Mild (Sharon Ledgerwood, RN) Duration (sec): 90-120 (Sharon Ledgerwood, RN) Duration Criteria: Less than Two 120 Second Contractions (Sharon Ledgerwood, RN) Pattern: Normal: <= 5 Contractions in 10 Minutes (Sharon Ledgerwood, RN) Resting Tone (Palpate): Relaxed (Sharon Ledgerwood, RN) Monitor Mode: External US (Sharon Ledgerwood, RN) FHR Baseline Rate : 125 (Sharon Ledgerwood, RN) FHR Baseline Changes: No Baseline Change (Sharon Ledgerwood, RN) Variability: Moderate 6-25 bpm (Sharon Ledgerwood, RN) Accelerations: 15X15 (Sharon Ledgerwood, RN) Decelerations: None (Sharon Ledgerwood, RN) Pitocin (milliunit): Pitocin Increased to (milliunits) @ 4 (Sharon Ledgerwood, RN) Datetime: 04/05/2016 06:15 Monitor Mode: External; Palpation (Sharon Ledgerwood, RN) Frequency (min): irreg (Sharon Ledgerwood, RN) Quality: Mild (Sharon Ledgerwood, RN) Duration (sec): 50-70 (Sharon Ledgerwood, RN) Duration Criteria: Less than Two 120 Second Contractions (Sharon Ledgerwood, RN) Pattern: Normal: <= 5 Contractions in 10 Minutes (Sharon Ledgerwood, RN) Resting Tone (Palpate): Relaxed (Sharon Ledgerwood, RN) Monitor Mode: External US (Sharon Ledgerwood, RN) FHR Baseline Rate : 125 (Sharon Ledgerwood, RN) FHR Baseline Changes: No Baseline Change (Sharon Ledgerwood, RN) Variability: Moderate 6-25 bpm (Sharon Ledgerwood, RN) Accelerations: 10X10 (Sharon Ledgerwood, RN) Decelerations: None (Sharon Ledgerwood, RN) Pitocin (milliunit): Pitocin Remains (milliunits) @ 2 (Sharon Ledgerwood, RN) Datetime: 04/05/2016 06:05 Pitocin (milliunit): Pitocin Started (milliunits) @ 2 (Sharon Ledgerwood, RN) Datetime: 04/05/2016 06:02 NBP Sys/Anabela/Mean (mmHg): 116 (QS system process) : 58 (QS system process) : 80 (QS system process) Pulse: 90 (QS system process) LaborFlag: Antepartum (QS system process) Datetime: 04/05/2016 06:00 Monitor Mode: External; Palpation (Sharon Ledgerwood, RN) Frequency (min): irreg (Sharon Ledgerwood, RN) Quality: Mild (Sharon Ledgerwood, RN) Duration (sec): 70-90 (Sharon Ledgerwood, RN) Duration Criteria: Less than Two 120 Second Contractions (Sharon Ledgerwood, RN) Pattern: Normal: <= 5 Contractions in 10 Minutes (Sharon Ledgerwood, RN) Resting Tone (Palpate): Relaxed (Sharon Ledgerwood, RN) Monitor Mode: External US (Sharon Ledgerwood, RN) FHR Baseline Rate : 125 (Sharon Ledgerwood, RN) FHR Baseline Changes: No Baseline Change (Sharon Ledgerwood, RN) Variability: Moderate 6-25 bpm (Sharon Ledgerwood, RN) Accelerations: 15X15 (Sharon Ledgerwood, RN) Decelerations: None (Sharon Ledgerwood, RN) Datetime: 04/05/2016 05:32 NBP Sys/Anabela/Mean (mmHg): 117 (QS system process) : 62 (QS system process) : 82 (QS system process) Pulse: 73 (QS system process) Respirations: 16 (Sharon Ledgerwood, RN) LaborFlag: Antepartum (QS system process) Datetime: 04/05/2016 05:30 Monitor Mode: External; Palpation (Sharon Ledgerwood, RN) Frequency (min): irreg (Sharon Ledgerwood, RN) Quality: Mild (Sharon Ledgerwood, RN) Duration (sec): 60-80 (Sharon Ledgerwood, RN) Duration Criteria: Less than Two 120 Second Contractions (Sharon Ledgerwood, RN) Pattern: Normal: <= 5 Contractions in 10 Minutes (Sharon Ledgerwood, RN) Resting Tone (Palpate): Relaxed (Sharon Ledgerwood, RN) Monitor Mode: External US (Sharon Ledgerwood, RN) FHR Baseline Rate : 125 (Sharon Ledgerwood, RN) FHR Baseline Changes: No Baseline Change (Sharon Ledgerwood, RN) Variability: Moderate 6-25 bpm (Sharon Ledgerwood, RN) Accelerations: 15X15 (Sharon Ledgerwood, RN) Decelerations: None (Sharon Ledgerwood, RN) Datetime: 04/05/2016 05:08 I/O Interventions: Up to BR (Sharon Ledgerwood, RN) Communication: RN at Bedside (Sharon Ledgerwood, RN) Datetime: 04/05/2016 05:02 NBP Sys/Anabela/Mean (mmHg): 112 (QS system process) : 59 (QS system process) : 75 (QS system process) Pulse: 80 (QS system process) LaborFlag: Antepartum (QS system process) Datetime: 04/05/2016 05:00 Monitor Mode: External; Palpation (Sharon Ledgerwood, RN) Frequency (min): irreg (Sharon Ledgerwood, RN) Quality: Mild (Sharon Ledgerwood, RN) Duration (sec): 60-70 (Sharon Ledgerwood, RN) Duration Criteria: Less than Two 120 Second Contractions (Sharon Ledgerwood, RN) Pattern: Normal: <= 5 Contractions in 10 Minutes (Sharon Ledgerwood, RN) Resting Tone (Palpate): Relaxed (Sharon Ledgerwood, RN) Monitor Mode: External US (Sharon Ledgerwood, RN) FHR Baseline Rate : 125 (Sharon Ledgerwood, RN) FHR Baseline Changes: No Baseline Change (Sharon Ledgerwood, RN) Variability: Moderate 6-25 bpm (Sharon Ledgerwood, RN) Accelerations: 15X15 (Sharon Ledgerwood, RN) Decelerations: None (Sharon Ledgerwood, RN) Datetime: 04/05/2016 04:36 Communication: Provider Orders Received (Sharon Webb RN) Communication Comments: Dr Carballo on the floor notified of pt's VE, complaints, labs. Order to start Pitocin at 6 am received. (Sharon Webb, EZIO) Datetime: 04/05/2016 04:32 NBP Sys/Anabela/Mean (mmHg): 114 (QS system process) : 62 (QS system process) : 82 (QS system process) Pulse: 78 (QS system process) Respirations: 15 (Sharon Webb RN) LaborFlag: Antepartum (QS system process) Datetime: 04/05/2016 04:30 Monitor Mode: External; Palpation (Sharon Webb, RN) Frequency (min): irreg (Sharon Webb, RN) Quality: Mild (Sharon Webb RN) Duration (sec): 60-80 (Sharon Webb RN) Duration Criteria: Less than Two 120 Second Contractions (Sharon Ledgerwood, RN) Pattern: Normal: <= 5 Contractions in 10 Minutes (Sharon Ledgerwood, RN) Resting Tone (Palpate): Relaxed (Sharon Ledgerwood, RN) Monitor Mode: External US (Sharon Ledgerwood, RN) FHR Baseline Rate : 130 (Sharon Ledgerwood, RN) FHR Baseline Changes: No Baseline Change (Sharon Ledgerwood, RN) Variability: Moderate 6-25 bpm (Sharon Ledgerwood, RN) Accelerations: 15X15 (Sharon Ledgerwood, RN) Decelerations: None (Sharon Ledgerwood, RN) Datetime: 04/05/2016 04:20 Procedures: Consents Signed (Sharon Ledgerwood, RN) Datetime: 04/05/2016 04:16 Procedures: Labs Drawn (Sharon Ledgerwood, RN) Datetime: 04/05/2016 04:15 IV/Blood Work: IV Started; New IV Bag Hung (Sharon Webb RN) Patient Care Comments: 18 G Left wrist (Sharon Webb RN) Datetime: 04/05/2016 04:00 Pain Scale: 4 (Annotations: 4 out 5 during contractions) (Sharon Webb RN) Pain Presence: Intermittent (Sharon Webb RN) Pain Type: Contraction (Sharon Webb RN) Pain Location: Abdomen (Sharon Webb RN) Pain Relief Measures: Comfort Measures (Sharon Webb RN) Pain Coping: Talking Through Contractions (Sharon Webb RN) Vaginal Bleeding: Normal Show (Sharon Webb RN) Level of Consciousness: Fully Conscious (Sharon Webb RN) DTR's/Clonus: DTRs 2+; No Clonus (Sharon Webb RN) Headache: Denies (Sharon Webb RN) Breath Sounds, Left: Clear and Equal (Sharon Webb RN) Breath Sounds, Right: Clear and Equal (Sharon Webb RN) Nausea/Vomiting: Denies (Sharon Webb RN) RUQ Epigastric Pain: Denies (Sharon Webb RN) Instructional Method: Demo; Verbal; Patient Instructed (Sharon Webb RN) Plan of Care: Plan of Care Discussed; Vaginal Delivery; Labor (Sharon Webb RN) Unit Routine: [place] to Room; Call Christiansen; Bed; Handwashing; Monitoring; Safety/Fall Risk Prevention (Sharon Webb RN) LaborFlag: Antepartum (QS system process) Datetime: 04/05/2016 03:56 Dilatation (cm): 5.0 (Sharon Webb RN) Effacement (%): 80 (Sharon Webb, RN) Station: -2 (Sharon Webb RN) Exam by: Dilshad Webb RN (Sharon Webb, RN)
[2016-04-05] MEDS ORDERED: MISOPROSTOL 0.2 MG TABLET ONE ×2 (08:54→09:49)
[2016-04-05] MEDS ORDERED: LIDOCAINE 1% INJ-PF (10 MG/ML) 30 ML SDV ONE ×2 (08:54→09:49)
[2016-04-05] MEDS ORDERED: BENZOCAINE/MENTHOL AEROSOL SPRAY 56 ML TOP PRN (11:34)
[2016-04-05] MEDS ORDERED: DIPH/PERTUSS(ACELL)/TETANUS VAC/PF 0.5 ML SYR (>=10YO) IM PRN (11:34)
[2016-04-05] MEDS ORDERED: ZOLPIDEM TARTRATE 5 MG TABLET PO PRN (11:34)
[2016-04-05] MEDS ORDERED: DIBUCAINE 1% OINTMENT 28 GM TP PRN (11:34)
[2016-04-05] MEDS ORDERED: MEASLES,MUMPS&RUBELLA VACC/PF 0.5 ML VIAL SUBCUT PRN (11:34)
[2016-04-05] MEDS ORDERED: OXYTOCIN/NORMAL SALINE 1,000 ML IV PRN (11:34)
--- NOTE | 2016-04-05 12:00 | L&D Flow Sheet ---
LD Flowsheet Datetime Report Generated by CPN: 04/05/2016 12:00 Datetime: 04/05/2016 11:48 NBP Sys/Anabela/Mean (mmHg): 129 (QS system process) : 70 (QS system process) : 93 (QS system process) Pulse: 99 (QS system process) LaborFlag: Antepartum (QS system process) Datetime: 04/05/2016 11:33 NBP Sys/Anabela/Mean (mmHg): 124 (QS system process) : 68 (QS system process) : 90 (QS system process) Pulse: 90 (QS system process) LaborFlag: Antepartum (QS system process) Datetime: 04/05/2016 11:18 NBP Sys/Anabela/Mean (mmHg): 118 (QS system process) : 60 (QS system process) : 84 (QS system process) Pulse: 90 (QS system process) LaborFlag: Antepartum (QS system process) Datetime: 04/05/2016 11:04 NBP Sys/Anabela/Mean (mmHg): 116 (QS system process) : 61 (QS system process) : 82 (QS system process) Pulse: 90 (QS system process) LaborFlag: Antepartum (QS system process) Datetime: 04/05/2016 10:49 NBP Sys/Anabela/Mean (mmHg): 138 (QS system process) : 63 (QS system process) : 90 (QS system process) Pulse: 102 (QS system process) LaborFlag: Antepartum (QS system process) Datetime: 04/05/2016 10:35 Temperature (F): 98.0 (Daphne Kim RN) Temperature (C): 36.7 (QS system process) Temperature Route: Oral (Daphne Kim RN) Pain Scale: 1 (Daphne Kim RN) Pain Presence: Constant (Daphne Kim RN) Pain Type: Dull (Daphne Kim RN) Pain Location: Perineum (Daphne Kim RN) Pain Goal: 1 (Daphne Kim RN) Pain Relief Measures: Comfort Measures (Daphne Kim RN) Level of Consciousness: Fully Conscious (Daphne Kim RN) DTR's/Clonus: DTRs 2+; No Clonus (Daphne Kim RN) Headache: Denies (Daphne Kim RN) Breath Sounds, Left: Clear and Equal (Daphne Kim RN) Breath Sounds, Right: Clear and Equal (Daphne Kim RN) Nausea/Vomiting: Denies (Daphne Kim RN) RUQ Epigastric Pain: Denies (Daphne Kim RN) LaborFlag: Antepartum (QS system process) Datetime: 04/05/2016 10:34 NBP Sys/Anabela/Mean (mmHg): 130 (QS system process) : 68 (QS system process) : 94 (QS system process) Pulse: 91 (QS system process) LaborFlag: Antepartum (QS system process) Datetime: 04/05/2016 10:26 Communication Comments: Pretty Cárdenas, diet consultant at bedside, baby nursing on right side (Daphne Kim, RN) Datetime: 04/05/2016 10:20 NBP Sys/Anabela/Mean (mmHg): 122 (QS system process) : 86 (QS system process) : 99 (QS system process) Pulse: 97 (QS system process) LaborFlag: Antepartum (QS system process) Datetime: 04/05/2016 10:04 Stage 2 Comments: placenta (Daphne Kim, RN) Datetime: 04/05/2016 10:01 Communication Comments: of viable baby girl (Daphne Kim, RN) Datetime: 04/05/2016 09:57 Pushing: Coached on Pushing; Urge to Push (Daphne Kim RN) Pushing Position: Pushing with Contractions (Daphne Julio, RN) Pushing Progress: Descent with Pushing; Perineal Bulging; Presenting Part Visible; with Pushing; Pushing Effectively with Contractions (Daphne Kim, RN) Datetime: 04/05/2016 09:53 Pushing: Coached on Pushing; Urge to Push (Daphne Kim, RN) Pushing Position: Pushing with Contractions; Pushing Lithotomy (Daphne Kim, RN) Pushing Progress: Descent with Pushing; Presenting Part Visible; Pushing Effectively with Contractions (Daphne Kim, RN) Datetime: 04/05/2016 09:52 Communication Comments: RN to remain at bedside continuously monitoring heart rate and adjusting monitors (Daphne Kim, RN) Datetime: 04/05/2016 09:50 Dilatation (cm): 10.0 (Daphne Julio, RN) Effacement (%): 100 (Daphne Kim, RN) Station: 1 (Daphne Kim, RN) Exam by: A. Emmel, CNM (Daphne Kim, RN) Communication: Provider at Bedside (Daphne Kim, RN) Datetime: 04/05/2016 09:49 Communication: RN at Bedside (Daphne Kim, RN) Datetime: 04/05/2016 09:37 Patient Position/Activity: Right Extreme; Semi-Fowlers (Daphne Kim, RN) Datetime: 04/05/2016 09:32 I/O Interventions: Up to BR (Daphne Kim, EZIO) Datetime: 04/05/2016 09:30 Monitor Mode: External; Palpation (Daphne Kim RN) Frequency (min): 2.5-3 (Daphne Kim RN) Quality: Moderate (Daphne Kim, EZIO) Duration (sec): 50-60 (Daphne Kim, EZIO) Duration Criteria: Less than Two 120 Second Contractions (Daphne Kim, EZIO) Pattern: Normal: <= 5 Contractions in 10 Minutes (Daphne Kim RN) Resting Tone (Palpate): Relaxed (Daphne Kim, EZIO) Monitor Mode: External US (Daphne Kim, EZIO) FHR Baseline Rate : 125 (Daphne Kim RN) FHR Baseline Changes: No Baseline Change (Daphne Kim, EZIO) Variability: Moderate 6-25 bpm (Daphne Kim RN) Accelerations: 15X15 (Daphne Kim, EZIO) Decelerations: None (Daphne Kim, EZIO) Pitocin (milliunit): Pitocin Remains (milliunits) @ (Annotations: 12) (Daphne Kim RN) Datetime: 04/05/2016 09:20 NBP Sys/Anabela/Mean (mmHg): 133 (QS system process) : 91 (QS system process) : 108 (QS system process) Pulse: 104 (QS system process) LaborFlag: Antepartum (QS system process) Datetime: 04/05/2016 09:17 Monitor Interventions for FHR: Ultrasound Adjusted (Daphne Kim RN) Datetime: 04/05/2016 09:15 Monitor Mode: External; Palpation (Daphne Kim RN) Frequency (min): 2-3 (Daphne Kim RN) Quality: Moderate (Daphne Kim RN) Duration (sec): 60-70 (Daphne Kim RN) Duration Criteria: Less than Two 120 Second Contractions (Daphne Julio, RN) Pattern: Normal: <= 5 Contractions in 10 Minutes (Daphne Kim, RN) Resting Tone (Palpate): Relaxed (Daphne Kim, RN) Monitor Mode: External US (Daphne Kim, RN) FHR Baseline Rate : 125 (Daphne Kim, RN) FHR Baseline Changes: No Baseline Change (Daphne Kim, RN) Variability: Moderate 6-25 bpm (Daphne Julio, RN) Accelerations: 15X15 (Daphne Kim, RN) Decelerations: None (Daphne Kim, RN) Pitocin (milliunit): Pitocin Increased to (milliunits) @ (Annotations: 12) (Daphne Kim, RN) Datetime: 04/05/2016 09:10 Patient Position/Activity: Left Extreme; Low Fowlers (Daphne Kim, RN) Datetime: 04/05/2016 09:09 Communication: RN at Bedside (Daphne Kim, RN) Datetime: 04/05/2016 09:00 Monitor Mode: External; Palpation (Daphne Kim RN) Frequency (min): 2.5-3.5 (Daphne Kim RN) Quality: Moderate (Daphne Kim RN) Duration (sec): 60-100 (Daphne Kim RN) Duration Criteria: Less than Two 120 Second Contractions (Daphne Kim RN) Pattern: Normal: <= 5 Contractions in 10 Minutes (Daphne Kim RN) Resting Tone (Palpate): Relaxed (Daphne Kim RN) Monitor Mode: External US (Daphne Kim RN) FHR Baseline Rate : 130 (Daphne Kim RN) FHR Baseline Changes: No Baseline Change (Daphne Kim RN) Variability: Moderate 6-25 bpm (Daphne Kim RN) Accelerations: 15X15 (Daphne Kim RN) Decelerations: None (Daphne Kim RN) Pain Scale: 4 (Daphne Kim RN) Pain Presence: Intermittent (Daphne Kim RN) Pain Type: Contraction (Daphne Kim RN) Pain Location: Abdomen (Daphne Kim RN) Pain Goal: 1 (Daphne Kim RN) Pain Relief Measures: Comfort Measures (Daphne Kim RN) Pain Coping: Breathing Through Contractions; Declines Medication or Epidural (Daphne Kim RN) Pitocin (milliunit): Pitocin Remains (milliunits) @ (Annotations: 10) (Daphne Kim RN) LaborFlag: Antepartum (QS system process) Datetime: 04/05/2016 08:45 Monitor Mode: External; Palpation (Daphne Kim RN) Frequency (min): 2.5-4 (Daphne Kim RN) Quality: Mild/Moderate (Daphne Kim RN) Duration (sec): 50-90 (Daphne Kim RN) Duration Criteria: Less than Two 120 Second Contractions (Daphne Kim RN) Pattern: Normal: <= 5 Contractions in 10 Minutes (Daphne Kim RN) Resting Tone (Palpate): Relaxed (Daphne Kim RN) Monitor Mode: External US (Daphne Kim RN) FHR Baseline Rate : 125 (Daphne Kim RN) FHR Baseline Changes: No Baseline Change (Daphne iKm RN) Variability: Moderate 6-25 bpm (Daphne Kim RN) Accelerations: 15X15 (Daphne Kim RN) Decelerations: None (Daphne Kim RN) Pitocin (milliunit): Pitocin Increased to (milliunits) @ (Annotations: 10) (Daphne Kim RN) Datetime: 04/05/2016 08:35 Dilatation (cm): 8.5 (Daphne Kim RN) Effacement (%): 100 (Daphne Kim RN) Station: 0 (Daphne Kim RN) Exam by: Afia Mcgee CNM (Daphne Kim, EZIO) Membrane Status: Ruptured (Daphne Kim RN) Membrane Comments: Afia Mcgee CNM states no bag felt (Daphne Kim RN) Datetime: 04/05/2016 08:30 Monitor Mode: External; Palpation (Daphne Kim, RN) Frequency (min): 3-5 (Daphne Kim, RN) Quality: Mild/Moderate (Daphne Kim, RN) Duration (sec): 60-80 (Daphne Kim, RN) Duration Criteria: Less than Two 120 Second Contractions (Daphne Kmi, RN) Pattern: Normal: <= 5 Contractions in 10 Minutes (Daphne Kim, RN) Resting Tone (Palpate): Relaxed (Daphne Kim, RN) Monitor Mode: External US (Daphne Kim, RN) FHR Baseline Rate : 120 (Daphne Kim, RN) FHR Baseline Changes: No Baseline Change (Daphne Kim, RN) Variability: Moderate 6-25 bpm (Daphne Kim, RN) Accelerations: 15X15 (Daphne Kim, RN) Decelerations: None (Daphne Kim, RN) Pitocin (milliunit): Pitocin Remains (milliunits) @ (Annotations: 8) (Daphne Kim, RN) Datetime: 04/05/2016 08:15 Monitor Mode: External; Palpation (Daphne Kim RN) Frequency (min): 4.5-5 (Daphne Kim RN) Quality: Mild/Moderate (Daphne Kim, EZIO) Duration (sec): 60-70 (Daphne Kim, RN) Duration Criteria: Less than Two 120 Second Contractions (Daphne Kim, EZIO) Pattern: Normal: <= 5 Contractions in 10 Minutes (Daphne Kim RN) Resting Tone (Palpate): Relaxed (Daphne Kim, EZIO) Monitor Mode: External US (Daphne Kim RN) FHR Baseline Rate : 130 (Daphne Kim, RN) FHR Baseline Changes: No Baseline Change (Daphne Kim, EZIO) Variability: Moderate 6-25 bpm (Daphne Kim, RN) Accelerations: 15X15 (Daphne Kim RN) Decelerations: None (Daphne Kim RN) Pitocin (milliunit): Pitocin Increased to (milliunits) @ (Annotations: 8) (Daphne Kim, EZIO) Datetime: 04/05/2016 08:00 Monitor Mode: External; Palpation (Daphne Kim RN) Frequency (min): 3-4 (Daphne Kim RN) Quality: Mild/Moderate (Daphne Kim, EZIO) Duration (sec): 60-70 (Daphne Kim, EZIO) Duration Criteria: Less than Two 120 Second Contractions (Daphne Kim, EZIO) Pattern: Normal: <= 5 Contractions in 10 Minutes (Daphne Kim RN) Resting Tone (Palpate): Relaxed (Daphne Kim, EZIO) Monitor Mode: External US (Daphne Kim, EZIO) FHR Baseline Rate : 130 (Daphne Kim, RN) FHR Baseline Changes: No Baseline Change (Daphne Kim RN) Variability: Moderate 6-25 bpm (Daphne Kim RN) Accelerations: 15X15 (Daphne Kim RN) Decelerations: None (Daphne Kim RN) Pitocin (milliunit): Pitocin Remains (milliunits) @ (Annotations: 6) (Daphne Kim RN)
--- NOTE | 2016-04-05 12:08 | L&D Progress Notes ---
PROGRESS NOTES Datetime Report Generated by CPN: 04/05/2016 12:08 PROGRESS NOTE Plan: Continue Present Management; Augmentation Informed Consent Obtained: Vaginal Delivery; Risks, Benefits and Alternatives Discussed Vital Signs : Reviewed Comment: called in to room by RN after large clot expelled ff@u+2 uterus explored copious amounts of large clots removed run 2nd bag of pitocin cytotec 1000 mcg per rectum additional 400 cc EBL - hemorrhage Comment: 30 yo admitted for active labor with cervical change history- obesity, gallstones abdomen nontender FHts 120s average variability uterine contractions- q 2-4 minutes srom unsure of time with bloody show continue pitociin augmentation anticipate plan of care reviewed with pt and spouse VAGINAL EXAM Dilatation: 9 Dilatation: 5 Effacement: 90 Effacement: 80 Station: 0 Station: -2 MEMBRANES Pooling: Positive Membranes: Ruptured Membranes: Intact FETUS A Monitoring: External US Decelerations: None : 40.0 Presentation: Vertex SIGNATURE SIGNATURE: [id number] SIGNATURE: [id number] SIGNATURE: [id number] Assignment: Raj Rodriguez DO Signature: with User ID: [email or web address] : with User ID: [email or web address]
[2016-04-05] MEDS ORDERED: IBUPROFEN 800 MG TABLET ONE (12:31)
[2016-04-05] MEDS: IBUPROFEN 800 MG TABLET PO SCH ×2 (12:31→22:27)
--- NOTE | 2016-04-05 13:28 | Delivery Summary ---
Del Sum A-C Datetime Report Generated by CPN: 04/05/2016 13:28 ADMISSION DATA Chief Complaint: Uterine Contractions Indication for Induction: Not Applicable Admission Impression: Term, Intrauterine ; Active Labor Admit Provider Comments: efw 7-8lbs DELIVERY PERSONNEL Delivery Doctor:: Ailsa Emmel, CNM Labor and Delivery Nurse:: Daphne Kim delivery table operator Nurse:: Angely Quezada, RN MATERNAL INFORMATION Delivery Anesthesia: None Medications After Delivery: Pitocin Drip 20 Units/1000ml NSS Meds After Delivery Comment: 20 units Pitocin in 1 L NS bolusing per order Estimated Blood Loss (ml): 350 Maternal Complications: None Provider Comments: pt pushing well bed prepared for delivery TAWANNA bulb suctioned on perineum to abdomen tactile stimulation elicits spontaneous cry uterus explored moderate clots expelled uterus firm cord partially avulsed marginal insertion of cord cord blood obtained ebl 350 cc hemostasis achieved pt tolerated repair without lidocaine bonding well with LABOR SUMMARY EDC: 04/01/2016 00:00 No. Babies in Womb: 1 Attempted: No Labor Anesthesia: None LABOR INFORMATION Reason for Induction: Not Applicable Onset of Labor: 04/05/2016 07:15 Complete Dilatation: 04/05/2016 09:50 Oxytocin: Augmentation Group B Beta Strep: Negative Antibiotics # of Doses: 0 Steroids Given: None Reason Steroids Not Administered: Not Applicable MEMBRANES Membranes Rupture Method: Spontaneous STAGES OF LABOR Stage 1 hr: 2 Stage 1 min: 35 Stage 2 hr: 0 Stage 2 min: 11 Stage 3 hr: 0 Stage 3 min: 3 Total Time in Labor hr: 2 Total Time in Labor min: 49 VAGINAL DELIVERY Episiotomy: None Laceration Extension: Second Degree Laceration Type: Vaginal Laceration Repair: Yes Laceration Repair Note: vaginal repair pt tolerated well and declined lidocaine short 2nd vaginal repair Sponge Count Correct: N/A Sharps Count Correct: Yes CSECTION DELIVERY Primary Indication: N/A Secondary Indication: N/A CSection Incidence: N/A Labor: N/A Elective: N/A CSection Incision: N/A BABY A INFORMATION Infant Delivery Date/Time: 04/05/2016 10:01 Method of Delivery: Vaginal Born in Route : No : N/A Forceps: N/A Vacuum Extraction: N/A Shoulder Dystocia : No PRESENTATION/POSITION BABY A Presentation: Cephalic Cephalic Presentation: Vertex Vertex Position: Left Occipital Anterior Breech Presentation: N/A PLACENTA INFORMATION BABY A Placenta Delivery Time : 04/05/2016 10:04 Placenta Method of Delivery: Spontaneous Placenta Status: Delivered SCORES BABY A Heart Rate 1 min: >100 bpm Resp Effort 1 min: Good Cry Reflex Irritability 1 min: Cough or Sneeze or Pulls Away Muscle Tone 1 min: Active Motion Color 1 min: Blue/Pale Resuscitation Effort 1 min: Tactile Stimulation SCORE 1 MIN: 8 Heart Rate 5 min: >100 bpm Resp Effort 5 min: Good Cry Reflex Irritability 5 min: Cough or Sneeze or Pulls Away Muscle Tone 5 min: Active Motion Color 5 min: Body Clutier, Extremities Blue Resuscitation Effort 5 min: N/A SCORE 5 MIN: 9 INFANT INFORMATION BABY A Gestational Age at Delivery: 40.4 Gestational Status: Full Term- 39- 40.6 Weeks Infant Outcome : Liveborn Condition : Stable Sex: Female IDENTIFICATION BABY A ID Band Number: [id number] Mother's Name Verified: Yes Infant RN Verifying Infant: S Maral RN B Roulund RN WEIGHT/LENGTH BABY A Birthweight (gm): 3670 Infant Weight (lb): 8 Infant Weight (oz): 1 Infant Length (in): 21.00 Length (cm): 53.34 CORD INFORMATION BABY A No. Cord Vessels: 3 Nuchal Cord : N/A Cord Blood Taken: Yes-For Storage (Mom's Blood type +) Infant Suction: Mouth; Nose ASSESSMENT BABY A Infant Complications: None Physical Findings at Delivery: Within Normal Limits Infant Respirations: Appears Normal Skin to Skin: Yes Skin to Skin Time (min): 60 [place] Refuge Specialist/ALS Called : No Infant Care By: KgMarta Quezada, RN Transferred To: Remains with Mother BABY B INFORMATION : N/A SIGNATURES Assignment: Raj Rodriguez DO Signature: with User ID: [email or web address] : with User ID: [email or web address]
--- NOTE | 2016-04-05 14:18 | Admission Physical ---
Datetime Report Generated by CPN: 04/05/2016 14:18 CURRENT ADMISSION Chief Complaint: Uterine Contractions Indication for Induction: Not Applicable Admit Plan: Admit to Unit; Initiate Labor Protocol ALLERGIES Medication Allergies: Yes Medication Allergies: Penicillins/SV/Anaphylaxis (03/14/2016); peanut/SV/Anaphylaxis (03/14/2016) Latex: No Latex Allergies Food Allergies: Peanut Environmental Allergies: Peanut OBSTETRICAL HISTORY EDC: 04/01/2016 00:00 : 4 Para: 0 Term: 0 SAB: 2 Ectopic: 1 Livin Gestational Diabetes: No Rh Sensitization: No Incompetent Cervix: No LOIDA: No Infertility: No ART Treatment: No Uterine Anomaly: No IUGR: No Hx Previous C/S: No Macrosomia: No Hx Loss/Stillborn: No PIH: No Hx : No Placenta Previa/Abruption: No Depression/PP Depression: No PTL/PROM: No Post Hemorrhage: No Current Procedures: Ultrasound Obstetrical History Comments: 2005 Left salpingectomy - ruptured ectopic 2009 D_C SEE RECORDS Alcohol: No Marijuana : No Cocaine: No Other Illicit Drugs: No Cigarettes: Never Smoker. [id number] MEDICAL HISTORY Diabetes: No Blood Transfusion: No Pulmonary Disease (Asthma, TB): No Breast Disease: No Hypertension: No Manager Collection Surgery: No Heart Disease: No Hosp/Surgery: Yes Autoimmune Disorder: No Anesthetic Complications: No Kidney Disease: No Abnormal Pap Smear: Yes Neuro/Epilepsy: No Psychiatric Disorders: No Other Medical Diseases: No Hepatitis/Liver Disease: No Significant Family History: No Varicosities/Phlebitis: No Trauma/Violence : No Thyroid Dysfunction: No Medical History Comments: abnormal pap [id number]; left salpingectomy - ruptured ectopic 2005 INFECTIOUS HISTORY Gonorrhea: No Genital Herpes: No Chlamydia: No Tuberculosis: No Syphilis: No Hepatitis: No HIV/AIDS Exposure: No Rash or Viral Illness: No HPV: No PHYSICAL EXAM General: Normal HEENT: Normal Neurologic: Normal Thyroid: Normal Heart: Normal Lungs: Normal Breast: Deferred Back: Normal Abdomen: Normal Genitourinary Exam: Normal Extremities: Normal DTRs: Normal Pelvic Type: Adequate Vital Signs: Reviewed VAGINAL EXAM Dilatation: 9 Effacement: 90 Station: 0 MEMBRANES Pooling: Positive Membranes: Ruptured FETUS A EGA: 40.4 FHR- Baseline: 120 Variability: Moderate 6-25bpm Accelerations: 15X15 Decelerations: None FHR Category: Category I Presentation: Vertex Admit Comment: efw 7-8lbs PLANS FOR LABOR AND DELIVERY Labor and Delivery: None Pain Management: Natural; Epidural Feeding Preference: Breast Benefit of Breast Feed Discussed: Yes Circumcision: N/A INFORMED CONSENT Informed Consent Obtained: Vaginal Delivery; Risks, Benefits and Alternatives Discussed Signature: with User ID: [email or web address]
--- NOTE | 2016-04-05 16:01 | L&D Flow Sheet ---
LD Flowsheet Datetime Report Generated by CPN: 04/05/2016 16:00 Datetime: 04/05/2016 14:04 NBP Sys/Anabela/Mean (mmHg): 126 (QS system process) : 68 (QS system process) : 88 (QS system process) Pulse: 113 (QS system process) LaborFlag: Antepartum (QS system process) Datetime: 04/05/2016 13:48 NBP Sys/Anabela/Mean (mmHg): 120 (QS system process) : 64 (QS system process) : 85 (QS system process) Pulse: 100 (QS system process) LaborFlag: Antepartum (QS system process) Datetime: 04/05/2016 13:33 NBP Sys/Anabela/Mean (mmHg): 120 (QS system process) : 64 (QS system process) : 86 (QS system process) Pulse: 107 (QS system process) LaborFlag: Antepartum (QS system process) Datetime: 04/05/2016 13:19 NBP Sys/Anabela/Mean (mmHg): 113 (QS system process) : 66 (QS system process) : 83 (QS system process) Pulse: 106 (QS system process) LaborFlag: Antepartum (QS system process) Datetime: 04/05/2016 13:05 NBP Sys/Anabela/Mean (mmHg): 112 (QS system process) : 71 (QS system process) : 85 (QS system process) Pulse: 100 (QS system process) LaborFlag: Antepartum (QS system process) Datetime: 04/05/2016 12:49 NBP Sys/Anabela/Mean (mmHg): 129 (QS system process) : 95 (QS system process) : 101 (QS system process) LaborFlag: Antepartum (QS system process) Datetime: 04/05/2016 12:34 NBP Sys/Anabela/Mean (mmHg): 111 (QS system process) : 57 (QS system process) : 77 (QS system process) LaborFlag: Antepartum (QS system process) Datetime: 04/05/2016 12:19 NBP Sys/Anabela/Mean (mmHg): 124 (QS system process) : 59 (QS system process) : 83 (QS system process) Pulse: 112 (QS system process) LaborFlag: Antepartum (QS system process) Datetime: 04/05/2016 12:07 NBP Sys/[place]/Mean (mmHg): 146 (QS system process) : 58 (QS system process) : 84 (QS system process) Pulse: 122 (QS system process) LaborFlag: Antepartum (QS system process) Datetime: 04/05/2016 12:04 NBP Sys/Anabela/Mean (mmHg): 126 (QS system process) : 74 (QS system process) : 93 (QS system process) Pulse: 114 (QS system process) LaborFlag: Antepartum (QS system process)
[2016-04-05] MEDS: FERROUS SULFATE 325 MG TABLET PO SCH (17:26)
[2016-04-05] MEDS: DOCUSATE SODIUM 100 MG CAPSULE PO SCH (17:26)
[2016-04-05 18:08] LABS: ABSOLUTE LYMPHOCYTES (AUTO) 1.6 10^3/uL (0.5-4.7); ABSOLUTE NEUT (AUTO) 15.2 10^3/uL (1.7-8.2); BASOPHILS % (AUTO) 0.1 % (0-2); EOSINOPHILS % (AUTO) 0.1 % (0-6); HEMATOCRIT 26.6 % (36.0-47.0); HEMOGLOBIN 8.6 g/dL (12.0-15.5); HGB HCT DIFFERENCE -0.8; MEAN CORPUSCULAR HEMOGLOBIN 27.1 pg (27.0-33.4); MEAN CORPUSCULAR HGB CONC 32.4 g/dL (32.0-36.0); MEAN CORPUSCULAR VOLUME 84 fl (80-97); MONOCYTES % (AUTO) 5.7 % (3-13); RED BLOOD COUNT 3.17 10^6/uL (3.72-5.28); RED CELL DISTRIBUTION WIDTH 15.1 % (11.5-14.0); SEGMENTED NEUTROPHILS % (AUTO) 85.1 % (42-78); WHITE BLOOD COUNT 17.9 10^3/uL (4.0-10.5)
--- NOTE | 2016-04-05 19:01 | L&D Flow Sheet ---
LD Flowsheet Datetime Report Generated by CPN: 04/05/2016 19:00 Datetime: 04/05/2016 14:04 NBP Sys/Anabela/Mean (mmHg): 126 (QS system process) : 68 (QS system process) : 88 (QS system process) Pulse: 113 (QS system process) LaborFlag: Antepartum (QS system process) Datetime: 04/05/2016 13:48 NBP Sys/Anabela/Mean (mmHg): 120 (QS system process) : 64 (QS system process) : 85 (QS system process) Pulse: 100 (QS system process) LaborFlag: Antepartum (QS system process) Datetime: 04/05/2016 13:33 NBP Sys/Anabela/Mean (mmHg): 120 (QS system process) : 64 (QS system process) : 86 (QS system process) Pulse: 107 (QS system process) LaborFlag: Antepartum (QS system process) Datetime: 04/05/2016 13:19 NBP Sys/Anabela/Mean (mmHg): 113 (QS system process) : 66 (QS system process) : 83 (QS system process) Pulse: 106 (QS system process) LaborFlag: Antepartum (QS system process) Datetime: 04/05/2016 13:05 NBP Sys/Anabela/Mean (mmHg): 112 (QS system process) : 71 (QS system process) : 85 (QS system process) Pulse: 100 (QS system process) LaborFlag: Antepartum (QS system process) Datetime: 04/05/2016 12:49 NBP Sys/Anabela/Mean (mmHg): 129 (QS system process) : 95 (QS system process) : 101 (QS system process) LaborFlag: Antepartum (QS system process) Datetime: 04/05/2016 12:34 NBP Sys/Anabela/Mean (mmHg): 111 (QS system process) : 57 (QS system process) : 77 (QS system process) LaborFlag: Antepartum (QS system process) Datetime: 04/05/2016 12:19 NBP Sys/Anabela/Mean (mmHg): 124 (QS system process) : 59 (QS system process) : 83 (QS system process) Pulse: 112 (QS system process) LaborFlag: Antepartum (QS system process) Datetime: 04/05/2016 12:07 NBP Sys/Anabela/Mean (mmHg): 146 (QS system process) : 58 (QS system process) : 84 (QS system process) Pulse: 122 (QS system process) LaborFlag: Antepartum (QS system process) Datetime: 04/05/2016 12:04 NBP Sys/Anabela/Mean (mmHg): 126 (QS system process) : 74 (QS system process) : 93 (QS system process) Pulse: 114 (QS system process) LaborFlag: Antepartum (QS system process) Datetime: 04/05/2016 11:48 NBP Sys/Anabela/Mean (mmHg): 129 (QS system process) : 70 (QS system process) : 93 (QS system process) Pulse: 99 (QS system process) LaborFlag: Antepartum (QS system process) Datetime: 04/05/2016 11:33 NBP Sys/Anabela/Mean (mmHg): 124 (QS system process) : 68 (QS system process) : 90 (QS system process) Pulse: 90 (QS system process) LaborFlag: Antepartum (QS system process) Datetime: 04/05/2016 11:18 NBP Sys/Anabela/Mean (mmHg): 118 (QS system process) : 60 (QS system process) : 84 (QS system process) Pulse: 90 (QS system process) LaborFlag: Antepartum (QS system process) Datetime: 04/05/2016 11:04 NBP Sys/Anabela/Mean (mmHg): 116 (QS system process) : 61 (QS system process) : 82 (QS system process) Pulse: 90 (QS system process) LaborFlag: Antepartum (QS system process) Datetime: 04/05/2016 10:49 NBP Sys/Anabela/Mean (mmHg): 138 (QS system process) : 63 (QS system process) : 90 (QS system process) Pulse: 102 (QS system process) LaborFlag: Antepartum (QS system process) Datetime: 04/05/2016 10:35 Temperature (F): 98.0 (Daphne Kim RN) Temperature (C): 36.7 (QS system process) Temperature Route: Oral (Daphne Kim RN) Pain Scale: 1 (Daphne Kim RN) Pain Presence: Constant (Daphne Kim RN) Pain Type: Dull (Daphne Kim RN) Pain Location: Perineum (Daphne Kim RN) Pain Goal: 1 (Daphne Kim RN) Pain Relief Measures: Comfort Measures (Daphne Kim RN) Level of Consciousness: Fully Conscious (Daphne Kim RN) DTR's/Clonus: DTRs 2+; No Clonus (Daphne Kim RN) Headache: Denies (Daphne Kim RN) Breath Sounds, Left: Clear and Equal (Daphne Kim RN) Breath Sounds, Right: Clear and Equal (Daphne Kim RN) Nausea/Vomiting: Denies (Daphne Kim RN) RUQ Epigastric Pain: Denies (Daphne Kim RN) LaborFlag: Antepartum (QS system process) Datetime: 04/05/2016 10:34 NBP Sys/Anabela/Mean (mmHg): 130 (QS system process) : 68 (QS system process) : 94 (QS system process) Pulse: 91 (QS system process) LaborFlag: Antepartum (QS system process) Datetime: 04/05/2016 10:26 Communication Comments: Pretty Cárdenas, vendor management consultant at bedside, baby nursing on right side (Daphne Kim RN) Datetime: 04/05/2016 10:20 NBP Sys/Anabela/Mean (mmHg): 122 (QS system process) : 86 (QS system process) : 99 (QS system process) Pulse: 97 (QS system process) LaborFlag: Antepartum (QS system process) Datetime: 04/05/2016 10:04 Stage 2 Comments: placenta (Daphne Julio, RN) Datetime: 04/05/2016 10:01 Communication Comments: of viable baby girl (Daphne Julio, RN) Datetime: 04/05/2016 10:00 Pitocin (milliunit): Pitocin Remains (milliunits) @ (Annotations: 12) (Daphne Julio, RN) Datetime: 04/05/2016 09:57 Pushing: Coached on Pushing; Urge to Push (Daphne Julio, RN) Pushing Position: Pushing with Contractions (Dpahne Julio, RN) Pushing Progress: Descent with Pushing; Perineal Bulging; Presenting Part Visible; with Pushing; Pushing Effectively with Contractions (Daphne Julio, RN) Datetime: 04/05/2016 09:53 Pushing: Coached on Pushing; Urge to Push (Daphne Julio, RN) Pushing Position: Pushing with Contractions; Pushing Lithotomy (Daphne Julio, RN) Pushing Progress: Descent with Pushing; Presenting Part Visible; Pushing Effectively with Contractions (Daphne Julio, RN) Datetime: 04/05/2016 09:52 Communication Comments: RN to remain at bedside continuously monitoring heart rate and adjusting monitors (Daphne Julio, RN) Datetime: 04/05/2016 09:50 Dilatation (cm): 10.0 (Daphne Kim RN) Effacement (%): 100 (Daphne Kim RN) Station: 1 (Daphne Kim RN) Exam by: Afia Mcgee CNM (Daphne Kim RN) Communication: Provider at Bedside (Daphne Kim RN) Datetime: 04/05/2016 09:49 Communication: RN at Bedside (Daphne Kim RN) Datetime: 04/05/2016 09:45 Pitocin (milliunit): Pitocin Remains (milliunits) @ (Annotations: 12) (Daphne Julio, RN) Datetime: 04/05/2016 09:37 Patient Position/Activity: Right Extreme; Semi-Fowlers (Daphne Kim, RN) Datetime: 04/05/2016 09:32 I/O Interventions: Up to BR (Daphne Kim, RN) Datetime: 04/05/2016 09:30 Monitor Mode: External; Palpation (Daphne Kim RN) Frequency (min): 2.5-3 (Daphne Kim RN) Quality: Moderate (Daphne Julio, RN) Duration (sec): 50-60 (Daphne Kim, RN) Duration Criteria: Less than Two 120 Second Contractions (Daphne Kim, RN) Pattern: Normal: <= 5 Contractions in 10 Minutes (Daphne Kim RN) Resting Tone (Palpate): Relaxed (Daphne Kim, RN) Monitor Mode: External US (Daphne Kim, RN) FHR Baseline Rate : 125 (Daphne Kim, RN) FHR Baseline Changes: No Baseline Change (Daphne Kim RN) Variability: Moderate 6-25 bpm (Daphne Kim, RN) Accelerations: 15X15 (Daphne Kim, RN) Decelerations: None (Daphne Kim, RN) Pitocin (milliunit): Pitocin Remains (milliunits) @ (Annotations: 12) (Daphne Kim RN) Datetime: 04/05/2016 09:20 NBP Sys/Anabela/Mean (mmHg): 133 (QS system process) : 91 (QS system process) : 108 (QS system process) Pulse: 104 (QS system process) LaborFlag: Antepartum (QS system process) Datetime: 04/05/2016 09:17 Monitor Interventions for FHR: Ultrasound Adjusted (Daphne Kim, RN) Datetime: 04/05/2016 09:15 Monitor Mode: External; Palpation (Daphne Kim RN) Frequency (min): 2-3 (Daphne Kim, EZIO) Quality: Moderate (Daphne Kim, RN) Duration (sec): 60-70 (Daphne Kim, RN) Duration Criteria: Less than Two 120 Second Contractions (Daphne Kim, EZIO) Pattern: Normal: <= 5 Contractions in 10 Minutes (Daphne Kim, RN) Resting Tone (Palpate): Relaxed (Daphne Kim, RN) Monitor Mode: External US (Daphne Kim, RN) FHR Baseline Rate : 125 (Daphne Kim, RN) FHR Baseline Changes: No Baseline Change (Daphne Kim, RN) Variability: Moderate 6-25 bpm (Daphne Kim, RN) Accelerations: 15X15 (Daphne Kim, RN) Decelerations: None (Daphne Kim, RN) Pitocin (milliunit): Pitocin Increased to (milliunits) @ (Annotations: 12) (Daphne Kim, RN) Datetime: 04/05/2016 09:10 Patient Position/Activity: Left Extreme; Low Fowlers (Daphne Kim, RN) Datetime: 04/05/2016 09:09 Communication: RN at Bedside (Daphne Kim, RN) Datetime: 04/05/2016 09:00 Monitor Mode: External; Palpation (Daphne Kim RN) Frequency (min): 2.5-3.5 (Daphne Kim RN) Quality: Moderate (Daphne Kim RN) Duration (sec): 60-100 (Daphne Kim RN) Duration Criteria: Less than Two 120 Second Contractions (Daphne Kim RN) Pattern: Normal: <= 5 Contractions in 10 Minutes (Daphne Kim RN) Resting Tone (Palpate): Relaxed (Daphne Kim RN) Monitor Mode: External US (Daphne Kim RN) FHR Baseline Rate : 130 (Daphne Kim RN) FHR Baseline Changes: No Baseline Change (Daphne Kim RN) Variability: Moderate 6-25 bpm (Daphne Kim RN) Accelerations: 15X15 (Daphne Kim RN) Decelerations: None (Daphne Kim RN) Pain Scale: 4 (Daphne Kim RN) Pain Presence: Intermittent (Daphne Kim RN) Pain Type: Contraction (Daphne Kim RN) Pain Location: Abdomen (Daphne Kim RN) Pain Goal: 1 (Daphne Kim RN) Pain Relief Measures: Comfort Measures (Daphne Kim RN) Pain Coping: Breathing Through Contractions; Declines Medication or Epidural (Daphne Kim RN) Pitocin (milliunit): Pitocin Remains (milliunits) @ (Annotations: 10) (Daphne Kim RN) LaborFlag: Antepartum (QS system process) Datetime: 04/05/2016 08:45 Monitor Mode: External; Palpation (Daphne Kim RN) Frequency (min): 2.5-4 (Daphne Kim RN) Quality: Mild/Moderate (Daphne Kim RN) Duration (sec): 50-90 (Dpahne Kim RN) Duration Criteria: Less than Two 120 Second Contractions (Daphne Kim RN) Pattern: Normal: <= 5 Contractions in 10 Minutes (Daphne Kim RN) Resting Tone (Palpate): Relaxed (Daphne Kim RN) Monitor Mode: External US (Daphne Kim RN) FHR Baseline Rate : 125 (Daphne Kim RN) FHR Baseline Changes: No Baseline Change (Daphne Kim RN) Variability: Moderate 6-25 bpm (Daphne Kim RN) Accelerations: 15X15 (Daphne Kim RN) Decelerations: None (Daphne Kim RN) Pitocin (milliunit): Pitocin Increased to (milliunits) @ (Annotations: 10) (Daphne Kim RN) Datetime: 04/05/2016 08:35 Dilatation (cm): 8.5 (Daphne Kim RN) Effacement (%): 100 (Daphne Kim RN) Station: 0 (Daphne Kim RN) Exam by: Afia Mcgee CNM (Daphne Kim RN) Membrane Status: Ruptured (Daphne Kim RN) Membrane Comments: Afia Mcgee CNM states no bag felt (Daphne Kim RN) Datetime: 04/05/2016 08:30 Monitor Mode: External; Palpation (Daphne Kim RN) Frequency (min): 3-5 (Daphne Kim RN) Quality: Mild/Moderate (Daphne Kim RN) Duration (sec): 60-80 (Daphne Kim RN) Duration Criteria: Less than Two 120 Second Contractions (Daphne Kim RN) Pattern: Normal: <= 5 Contractions in 10 Minutes (Daphne Kim RN) Resting Tone (Palpate): Relaxed (Daphne Kim RN) Monitor Mode: External US (Daphne Kim RN) FHR Baseline Rate : 120 (Daphne Kim RN) FHR Baseline Changes: No Baseline Change (Daphne Kim, EZIO) Variability: Moderate 6-25 bpm (Daphne Kim, RN) Accelerations: 15X15 (Daphne Kim, EZIO) Decelerations: None (Daphne Kim, EZIO) Pitocin (milliunit): Pitocin Remains (milliunits) @ (Annotations: 8) (Daphne Kim, RN) Datetime: 04/05/2016 08:15 Monitor Mode: External; Palpation (Daphne Kim RN) Frequency (min): 4.5-5 (Daphne Kim, EZIO) Quality: Mild/Moderate (Daphne Kim, EZIO) Duration (sec): 60-70 (Daphne Kim, EZIO) Duration Criteria: Less than Two 120 Second Contractions (Daphne Kim, EZIO) Pattern: Normal: <= 5 Contractions in 10 Minutes (Daphne Kim, EZIO) Resting Tone (Palpate): Relaxed (Daphne Kim, EZIO) Monitor Mode: External US (Daphne Kim, EZIO) FHR Baseline Rate : 130 (Daphne Kim RN) FHR Baseline Changes: No Baseline Change (Daphne Kim, EZIO) Variability: Moderate 6-25 bpm (Daphne Kim, RN) Accelerations: 15X15 (Daphne Kim, RN) Decelerations: None (Daphne Kim, RN) Pitocin (milliunit): Pitocin Increased to (milliunits) @ (Annotations: 8) (Daphne Kim, EZIO) Datetime: 04/05/2016 08:00 Monitor Mode: External; Palpation (Daphne Kim, RN) Frequency (min): 3-4 (Daphne Kim, RN) Quality: Mild/Moderate (Daphne Kim, RN) Duration (sec): 60-70 (Daphne Kim, RN) Duration Criteria: Less than Two 120 Second Contractions (Daphne Kim, RN) Pattern: Normal: <= 5 Contractions in 10 Minutes (Daphne Kim, RN) Resting Tone (Palpate): Relaxed (Daphne Kim, RN) Monitor Mode: External US (Daphne Kim, RN) FHR Baseline Rate : 130 (Daphne Kim, RN) FHR Baseline Changes: No Baseline Change (Daphne Kim, RN) Variability: Moderate 6-25 bpm (Daphne Kim, RN) Accelerations: 15X15 (Daphne Kim, RN) Decelerations: None (Daphne Kim, RN) Pitocin (milliunit): Pitocin Remains (milliunits) @ (Annotations: 6) (Daphne Kim, RN) Datetime: 04/05/2016 07:45 Monitor Mode: External; Palpation (Daphne Kim, RN) Frequency (min): 3-4 (Daphne Kim, RN) Quality: Mild/Moderate (Daphne Kim, RN) Duration (sec): 50-60 (Daphne Kim, RN) Duration Criteria: Less than Two 120 Second Contractions (Daphne Kim, RN) Pattern: Normal: <= 5 Contractions in 10 Minutes (Daphne Kim, RN) Resting Tone (Palpate): Relaxed (Daphne Kim, RN) Monitor Mode: External US (Daphne Kim, RN) FHR Baseline Rate : 125 (Daphne Kim, RN) FHR Baseline Changes: No Baseline Change (Daphne Kim, RN) Variability: Moderate 6-25 bpm (Daphne Kim, RN) Accelerations: 15X15 (Daphne Kim, RN) Decelerations: None (Daphne Kim, RN) Pitocin (milliunit): Pitocin Remains (milliunits) @ (Annotations: 6) (Daphne Kim, RN) Datetime: 04/05/2016 07:41 Level of Consciousness: Fully Conscious (Daphne Kim, RN) DTR's/Clonus: DTRs 2+; No Clonus (Daphne Kim, RN) Headache: Denies (Daphne Kim, RN) Breath Sounds, Left: Clear and Equal (Daphne Kim, RN) Breath Sounds, Right: Clear and Equal (Daphne Kim, RN) Nausea/Vomiting: Denies (Daphne Kim, RN) RUQ Epigastric Pain: Denies (Daphne Kim, RN) Datetime: 04/05/2016 07:33 Patient Position/Activity: Left Tilt; Low Fowlers (Daphne Kim, EZIO) Datetime: 04/05/2016 07:30 Monitor Mode: External; Palpation (Daphne Kim RN) Monitor Interventions for UA: [place] Adjusted (Daphne Kim RN) Frequency (min): 2.5-3 (Daphne Kim RN) Quality: Mild/Moderate (Daphne Kim RN) Duration (sec): 50-60 (Daphne Kim RN) Duration Criteria: Less than Two 120 Second Contractions (Daphne Kim RN) Pattern: Normal: <= 5 Contractions in 10 Minutes (Daphne Kim RN) Resting Tone (Palpate): Relaxed (Daphne Kim RN) Monitor Mode: External US (Daphne Kim RN) FHR Baseline Rate : 120 (Daphne Kim RN) FHR Baseline Changes: No Baseline Change (Daphne Kim RN) Variability: Moderate 6-25 bpm (Daphne Kim RN) Accelerations: 15X15 (Daphne Kim RN) Decelerations: None (Daphne Kim, EZIO) Pitocin (milliunit): Pitocin Remains (milliunits) @ (Annotations: 6) (Daphne Kim RN) Datetime: 04/05/2016 07:28 I/O Interventions: Up to BR (Daphne Julio, RN) Datetime: 04/05/2016 07:18 Communication Comments: report received from O. [place], RN (Daphne Julio, RN) Datetime: 04/05/2016 07:17 Communication: Report Given to @ M Julio RN (Sharon Ledgerwood, RN) Datetime: 04/05/2016 07:15 Monitor Mode: External; Palpation (Daphne Kim, EZIO) Frequency (min): 3-5 (Daphne Kim, RN) Quality: Mild/Moderate (Daphne Kim, RN) Duration (sec): 50-60 (Daphne Kim, RN) Duration Criteria: Less than Two 120 Second Contractions (Daphne Kim, RN) Pattern: Normal: <= 5 Contractions in 10 Minutes (Daphne Kim, RN) Resting Tone (Palpate): Relaxed (Daphne Kim, RN) Monitor Mode: External US (Daphne Kim, RN) FHR Baseline Rate : 130 (Daphne Kim, RN) FHR Baseline Changes: No Baseline Change (Daphne Kim, RN) Variability: Moderate 6-25 bpm (Daphne Kim, RN) Accelerations: 15X15 (Daphne Kim, RN) Decelerations: None (Daphne Kim, RN) Pitocin (milliunit): Pitocin Remains (milliunits) @ (Annotations: 6) (Daphne Kim, RN) Datetime: 04/05/2016 07:02 NBP Sys/Anabela/Mean (mmHg): 125 (QS system process) : 64 (QS system process) : 89 (QS system process) Pulse: 90 (QS system process) LaborFlag: Antepartum (QS system process) Datetime: 04/05/2016 07:00 Monitor Mode: External; Palpation (Sharon Ethelgerbo, RN) Frequency (min): irreg (Sharon Ledgerwood, RN) Quality: Mild (Sharon Ledgerwood, RN) Duration (sec): 50-70 (Sharon Ledgerwood, RN) Duration Criteria: Less than Two 120 Second Contractions (Sharon Ledgerwood, RN) Pattern: Normal: <= 5 Contractions in 10 Minutes (Sharon Ledgerwood, RN) Resting Tone (Palpate): Relaxed (Sharon Ledgerwood, RN) Monitor Mode: External US (Sharon Ledgerbo, RN) FHR Baseline Rate : 130 (Sharon Ledgerwood, RN) FHR Baseline Changes: No Baseline Change (Sharon Ledgerwood, RN) Variability: Moderate 6-25 bpm (Sharon Ledgerwood, RN) Accelerations: 15X15 (Sharon Ledgerwood, RN) Decelerations: None (Sharon Ledgerwood, RN) Pitocin (milliunit): Pitocin Increased to (milliunits) @ 6 (Sharon Ledgerwood, RN)
[2016-04-06] MEDS: IBUPROFEN 800 MG TABLET PO SCH ×3 (01:50→21:46)
--- NOTE | 2016-04-06 06:21 | L&D Current Admission ---
Current Admit Datetime Report Generated by CPN: 04/06/2016 06:00 ADMISSION INFORMATION Current Admit Date/Time: 04/05/2016 04:34 (04/05/2016 04:34:Sharon Webb RN) Reason for Admission: Onset of Labor (04/05/2016 04:34:Sharon Webb RN) Chief Complaint: Contractions (04/05/2016 04:00:Sharon Webb RN) EGA per Dates: 40.4 (04/05/2016 04:34:QS system process) Method of Arrival: Wheelchair (04/05/2016 04:34:Sharon Webb RN) Admitted From: Home (04/05/2016 04:34:Sharon Webb RN) Reason for Induction: Not Applicable (04/05/2016 04:34:Sharon Webb RN) Records Available: Yes (04/05/2016 04:34:Sharon Webb RN) General Admission Information: Reviewed (04/05/2016 04:34:Sharon Webb RN) BELONGINGS/ADVANCED DIRECTIVES Other Belongings: see belongings consent (04/05/2016 04:34:Sharon Webb RN) Disposition of Belongings: Kept with Patient (04/05/2016 04:34:Sharon Webb RN) Advance Direct for Healthcare: No, and Wants No Information (04/05/2016 04:34:Sharon Webb RN) Durable Power of Direct Service Professional: No (04/05/2016 04:34:Sharon Webb RN) Living Will: No (04/05/2016 04:34:Sharon Webb RN) Organ Donor: Yes (04/05/2016 04:34:Sharon Webb RN) Pt Rights Information Given: Yes (04/05/2016 04:34:Sharon Webb RN) Pt Understands Pt Rights: Yes (04/05/2016 04:34:Sharon Webb RN) LEARNING ASSESSMENT Knowledge Level: Understands L_D Process; Understands Care Activities; Had Pre-Hospital Education; Understands Diagnosis (04/05/2016 04:34:Sharon Webb RN) Barriers to Learning: None (04/05/2016 04:34:Sharon Webb RN) Learning Readiness: Motivated (04/05/2016 04:34:Sharon Webb RN) Learns Best By: 1 to 1 Instruction (04/05/2016 04:34:Sharon Webb RN) Learning Needs: Labor and Delivery Process; Pain Management; Symptoms to Report; Treatment Plan; Medication; Diagnosis; Nutrition; Equipment; Infant Care; Community Resources (04/05/2016 04:34:Sharon Webb RN) DOMESTIC VIOLANCE SCREENING Dom Viol Threatened/Hurt: No (04/05/2016 04:34:Sharon Webb RN) Hx of Abuse/Neglect past 2yrs: No (04/05/2016 04:34:Sharon Webb RN) Feel Unsafe Going Home: No (04/05/2016 04:34:Sharon Webb RN) Addt'l Observ Indicating Abuse: No (04/05/2016 04:34:Sharon Webb RN) Reason Unable to Complete Screen: N/A, Screen Completed (04/05/2016 04:34:Sharon Webb RN) Considered Personal Harm/Suicide: No (04/05/2016 04:34:Sharon Webb RN) NUTRITIONAL/FUNCTIONAL SCREENING Problem with Appetite >5 Days: No (04/05/2016 04:34:Sharon Webb RN) Chew/Swallow Difficulties: No (04/05/2016 04:34:Sharon Webb RN) Inappropriate Wt Gain/Loss: No (04/05/2016 04:34:Sharon Webb RN) Presence Skin Breakdown/Ulcer: No (04/05/2016 04:34:Sharon Webb RN) Special Diet: No (04/05/2016 04:34:Sharon Webb RN) Pt Requests Economics Department Chair Visit: No (04/05/2016 04:34:Sharon Webb RN) Hx of Any of the Following?: N/A (04/05/2016 04:34:Sharon Webb RN) New Diagnosis of: N/A (04/05/2016 04:34:Sharon Webb RN) Requires Assist w/Ambulation: No (04/05/2016 04:34:Sharon Webb RN) Uses Assist Device to Ambulate: No (04/05/2016 04:34:Sharon Webb RN) Pt Requires Help w/ADL's: No (04/05/2016 04:34:Sharon Webb RN)
--- NOTE | 2016-04-06 06:21 | L&D General Admission ---
General Admit Datetime Report Generated by CPN: 04/06/2016 06:00 INFORMATION Patient Age: 30 (02/23/2016 10:02:QS system process) EDC: 04/01/2016 00:00 (03/14/2016 13:15:Brooke Washburn RN) LMP: 05/26/2015 00:00 (03/14/2016 13:15:Brooke Washburn RN) : 4 (03/14/2016 13:15:rBooke Washburn RN) Para: 0 (03/14/2016 13:15:Brooke Washburn RN) Term: 0 (03/14/2016 13:15:Brooke Washburn RN) Spontaneous Abortions: 2 (03/14/2016 13:15:Brooke Washburn RN) Livin (03/14/2016 13:15:Brooke Washburn RN) Ectopic: 1 (03/14/2016 13:15:Brooke Washburn RN) Baby, Number in Womb: 1 (03/14/2016 13:15:Brooke Washburn RN) [email or web address] (03/14/2016 13:15:Brooke Washburn RN) Adequate Care: Yes (03/14/2016 13:15:Brooke Washburn RN) Prepregnancy Weight (lb): 250 (03/14/2016 13:15:Brooke Washburn RN) Prepregnancy Weight (kg): 113.6 (03/14/2016 13:15:QS system process) Height (in): 70 (04/05/2016 04:53:QS system process) ALLERGIES Medication Allergy: Yes (03/14/2016 13:15:Brooke Washburn RN) Medication Allergies: Penicillins/SV/Anaphylaxis (03/14/2016); peanut/SV/Anaphylaxis (03/14/2016) (03/14/2016 13:22:QS system process) Latex Allergy: No Latex Allergies (03/14/2016 13:15:Brooke Washburn RN) Food Allergies: Peanut (03/14/2016 13:15:Brooke Washburn RN) Environmental Allergies: Peanut (03/14/2016 13:15:Brooke Washburn RN) COMMUNICATION Primary Language: Dominican (03/14/2016 13:15:Brooke Washburn RN) Medical Tx Preferred Language: Dominican (03/14/2016 13:15:Brooke Washburn RN) Communication Barrier(s): None (03/14/2016 13:15:Brooke Washburn RN) DEMOGRAPHICS Address: [address] [place] [id number] (02/23/2016 10:02:QS system process) Zipcode: [address] (02/23/2016 10:02:QS system process) Home (02/23/2016 10:02:QS system process) SSN: [id number] (02/23/2016 10:02:QS system process) Next of Kin Name: DIONTE LONGORIA (02/23/2016 10:02:QS system process) Next of Kin (02/23/2016 10:02:QS system process) Next of Kin Relationship: SPO (02/23/2016 10:02:QS system process) Date of : 1985 (02/23/2016 10:02:QS system process) Marital Status: (02/23/2016 10:02:QS system process) Sex: Female (02/23/2016 10:02:QS system process) Race: (02/23/2016 10:02:QS system process) Ethnicity: Non- or (02/23/2016 10:02:QS system process) Gnosticism: Mormon (02/23/2016 10:02:QS system process) DRUG AND ALCOHOL USE Alcohol: No (03/14/2016 13:15:Brooke Washburn RN) Cigarettes: Never Smoker. [id number] (03/14/2016 13:15:Brooke Washburn RN) Marijuana: No (03/14/2016 13:15:Brooke Washburn RN) Cocaine: No (03/14/2016 13:15:Brooke Washburn RN) Other Illicit Drugs: No (03/14/2016 13:15:Brooke Washburn RN) VACCINE HISTORY Influenza Vaccine: Yes (03/14/2016 13:15:Brooke Washburn RN) Influenza Date: Jan 2016 (03/14/2016 13:15:Brooke Washburn RN) Pneumococcal Vaccine: No (03/14/2016 13:15:Brooke Washburn RN) Tetanus Vaccine: Uncertain (03/14/2016 13:15:Brooke Washburn RN) Tdap Vaccine: Uncertain (03/14/2016 13:15:Brooke Washburn RN) Hepatitis B Vaccine: Yes (03/14/2016 13:15:Brooke Washburn RN) Applications Support Lead: [facility] (03/14/2016 13:15:Brooke Washburn RN) Feeding Preference: Breast (03/14/2016 13:15:Brooke Washburn RN) Benefit of Breast Feed Discussed: Yes (03/14/2016 13:15:Brooke Washburn RN) Circumcision: N/A (03/14/2016 13:15:Brooke Washburn RN) Classes Attended: No (03/14/2016 13:15:Brooke Washburn RN) Tubal Ligation: No (03/14/2016 13:15:Brooke Washburn RN) Tubal Authorization Signed: N/A (03/14/2016 13:15:Brooke Washburn RN) Consent: N/A (03/14/2016 13:15:Brooke Washburn RN) Consent Signed: N/A (03/14/2016 13:15:Brooke Washburn RN) Pain Management Plans: Natural; Epidural (03/14/2016 13:15:Brooke Washburn RN) Plans for Labor and Delivery: None (03/14/2016 13:15:Brooke Washburn RN) Support Person: Dionte Longoria (03/14/2016 13:15:Brooke Washburn RN) Support Person Relationship: (03/14/2016 13:15:Brooke Washburn RN) Cultural/Spritual Practice: No (03/14/2016 13:15:Brooke Washburn RN) Spir/Cult Dietary Needs: No (03/14/2016 13:15:Brooke Washburn RN) LIVING SITUATION/DISCHARGE PLAN Living Arrangements: House (03/14/2016 13:15:Brooke Washburn RN) Adequate Access to:: Electric; Heat; Refrigeration; Plumbing/Running water; Phone; Transportation (03/14/2016 13:15:Brooke Washburn RN) Discharge Cna Hha Person: Dionte Longoria (03/14/2016 13:15:Brooke Washburn RN) Person to Help after Discharge: Dionte Hartden (03/14/2016 13:15:Brooke Washburn RN) Currently Using Commun Resources: No (03/14/2016 13:15:Brooke Washburn RN) Outside Agency/Certified Nurse Operating Room: No (03/14/2016 13:15:Brooke Washburn RN) Car Seat for Discharge: Yes (03/14/2016 13:15:Brooke Washburn RN) Adoption Requested: No (03/14/2016 13:15:Brooke Washburn RN) Pt Contact w/ Post : N/A (03/14/2016 13:15:Brooke Washburn RN) LABS Blood Type: A Positive (03/14/2016 13:15:Brooke Washburn RN) Antibody Screen: Negative (03/14/2016 13:15:Brooke Washburn RN) Hemoglobin: 8.6 L (04/05/2016 17:50:QS system process) Hematocrit: 26.6 L (04/05/2016 17:50:QS system process) MCV: 84 (04/05/2016 17:50:QS system process) Group Beta Strep: Negative (03/14/2016 13:15:Brooke Washburn RN) Gonorrhea: Negative (03/14/2016 13:15:Brooke Washburn RN) Chlamydia: Negative (03/14/2016 13:15:Brooke Washburn RN) RPR/VDRL: Nonreactive (03/14/2016 13:15:Brooke Washburn RN) Hepatitis B: Negative (03/14/2016 13:15:Brooke Washburn RN) Rubella: Immune (03/14/2016 13:15:Brooke Washburn RN) OB/PREVIOUS HISTORY LMP: 05/26/2015 00:00 (03/14/2016 13:15:Brooke Washburn RN) Current Procedures: Ultrasound (03/14/2016 13:15:Brooke Washburn RN) History of Previous : No (03/14/2016 13:15:Brooke Washburn RN) History of Gestational Diabetes: No (03/14/2016 13:15:Brooke Washburn RN) History of PIH: No (03/14/2016 13:15:Brooke Washburn RN) History of Incompetent Cervix: No (03/14/2016 13:15:Brooke Washburn RN) History of Placenta Previa/Abrup: No (03/14/2016 13:15:Brooke Washburn RN) History of Macrosomia: No (03/14/2016 13:15:Brooke Washburn RN) History of IUGR: No (03/14/2016 13:15:Brooke Washburn RN) History of Hemorrhage: No (03/14/2016 13:15:Brooke Washburn RN) History of Loss/Stillborn: No (03/14/2016 13:15:Brooke Washburn RN) History of : No (03/14/2016 13:15:Boroke Washburn RN) History of D (Rh) Sensitization: No (03/14/2016 13:15:Brooke Washburn RN) History Recurrent Loss/Stillborn: No (03/14/2016 13:15:Brooke Washburn RN) History Depression/PP Depression: No (03/14/2016 13:15:Brooke Washburn RN) History of Uterine Anomaly/LOIDA: No (03/14/2016 13:15:Brooke Washburn RN) History of Infertility: No (03/14/2016 13:15:Brooke Washburn RN) History of ART Treatment: No (03/14/2016 13:15:Brooke Washburn RN) History of LOIDA: No (03/14/2016 13:15:Brooke Washburn RN) Comments Obstetrical History: 2006 Left salpingectomy - ruptured ectopic 2010 D_C (03/14/2016 13:15:Brooke Washburn RN) MEDICAL HISTORY Med Hx Diabetes: No (03/14/2016 13:15:Brooke Washburn RN) Med Hx Hypertension: No (03/14/2016 13:15:Brooke Washburn RN) Med Hx Heart Disease: No (03/14/2016 13:15:Brooke Washburn RN) Med Hx Autoimmune Disorder: No (03/14/2016 13:15:Brooke Washburn RN) Med Hx Kidney Disease/UTI: No (03/14/2016 13:15:Brooke Washburn RN) Med Hx Neurologic/Epilepsy: No (03/14/2016 13:15:Brooke Wsahburn RN) Med Hx Psychiatric Disorders: No (03/14/2016 13:15:Brooke Washburn RN) Med Hx Hepatitis/Liver Disease: No (03/14/2016 13:15:Brooke Washburn RN) Med Hx Varicosities/Phlebitis: No (03/14/2016 13:15:Brooke Washburn RN) Med Hx Thyroid Dysfunction: No (03/14/2016 13:15:Brooke Washburn RN) Med Hx Trauma/Violence: No (03/14/2016 13:15:Brooke Washburn RN) Med Hx Blood Transfusion: No (03/14/2016 13:15:Brooke Washburn RN) Med Hx Pulmonary (Asthma,TB): No (03/14/2016 13:15:Brooke Washburn RN) Med Hx Breast: No (03/14/2016 13:15:Brooke Washburn RN) Med Hx SPRINKLER DRIVER Surgery: No (03/14/2016 13:15:Brooke Washburn RN) Med Hx Hospitalization/Surgery: Yes (03/14/2016 13:15:Brooke Washburn RN) Med Hx Anesthetic Complications: No (03/14/2016 13:15:Brooke Washburn RN) Med Hx Abnormal Pap Smear: Yes (03/14/2016 13:15:Brooke Washburn RN) Other Medical Diseases: No (03/14/2016 13:15:Brooke Washburn RN) Med Hx Significant Family Hx: No (03/14/2016 13:15:Brooke Washburn RN) Details of Med/Surg Hx: abnormal pap [id number]; left salpingectomy - ruptured ectopic 2005 (03/14/2016 13:15:Brooke Washburn RN) INFECTIOUS HISTORY Inf Hx Gonorrhea: No (03/14/2016 13:15:Brooke Washburn RN) Inf Hx Chlamydia: No (03/14/2016 13:15:Brooke Washburn RN) Inf Hx Syphilis: No (03/14/2016 13:15:Brooke Washburn RN) Inf Hx HIV/AIDS: No (03/14/2016 13:15:Boroke Washburn RN) Inf Hx Human Papilloma Virus: No (03/14/2016 13:15:Brooke Washburn RN) Inf Hx Pt/Partner Genital Herpes: No (03/14/2016 13:15:Brooke Washburn RN) Inf Hx Tuberculosis/Exposure: No (03/14/2016 13:15:Brooke Washburn RN) Inf Hx Hepatitis B,C: No (03/14/2016 13:15:Brooke Washburn RN) Inf Hx Rash or Viral Illness: No (03/14/2016 13:15:Brooke Washburn RN) GENETIC HISTORY Gen Hx Age >=35 at JAMAL: No (03/14/2016 13:15:Brooke Washburn RN) Gen Hx Thalassemia: No (03/14/2016 13:15:Brooke Washburn RN) Gen Hx Congenital Heart Defect: No (03/14/2016 13:15:Brooke Washburn RN) Gen Hx Neural Tube Defect: No (03/14/2016 13:15:Brooke Washburn RN) Gen Hx Down's Syndrome: No (03/14/2016 13:15:Brooke Washburn RN) Gen Hx Low-Sachs: No (03/14/2016 13:15:Brooke Washburn RN) Gen Hx Lambert: No (03/14/2016 13:15:Brooke Washburn RN) Gen Hx Familial Dysautonomia: No (03/14/2016 13:15:Brooke Washburn RN) Gen Hx Sickle Cell Disease/Trait: No (03/14/2016 13:15:Brooke Washburn RN) Gen Hx Hemophilia/Blood Disorder: No (03/14/2016 13:15:Brooke Washburn RN) Gen Hx Muscular Dystrophy: No (03/14/2016 13:15:Brooke Washburn RN) Gen Hx Cystic Fibrosis: No (03/14/2016 13:15:Brooke Washburn RN) Gen Hx Huntingtons Chorea: No (03/14/2016 13:15:Brooke Washburn RN) Gen Hx Mental Retardation/Autism: No (03/14/2016 13:15:Brooke Washburn RN) Gen Hx Tested for Fragile X: No (03/14/2016 13:15:Brooke Washburn RN) Gen Hx Other Inher/Chromosomal: No (03/14/2016 13:15:Brooke Washburn RN) Gen Hx Maternal Metabolic DO: No (03/14/2016 13:15:Brooke Washburn RN) Gen Hx Pt Father or FOB Defect: No (03/14/2016 13:15:Brooke Washburn RN) Gen Hx Other Genetic History: No (03/14/2016 13:15:Brooke Washburn RN) Gen Hx Drugs/Meds since LMP: No (03/14/2016 13:15:Brooke Washburn RN) Details of Genetic History: current being monitored at [facility] for arrhythimia (bigeminy) - resolved, she states (03/14/2016 13:15:Brooke Washburn RN)
--- NOTE | 2016-04-06 06:29 | L&D Care Plan ---
LD CARE PLANS Datetime Report Generated by CPN: 04/06/2016 06:15 Datetime: 04/05/2016 05:17 State: Risk For (Libby Gayle RN) Related To: Labor and Delivery Process (Libby Gayle RN) Goal(s): Patients Pain will be Assessed and Managed; Patient will Verbalize Adequate Relief of Pain or the Ability to Arnold with Current Pain (Libby Gayle RN) Interventions: Assess Pain Severity on Scale of 0 (None) to 5 (Severe); Assess Type, Location and Intensity of Pain Each Time Client Reports Discomfort and Notify Provider if Unusal Pain Develops; Encourage Proper Breathing and Relaxation Techniques; Offer Alternatives Such as Repositioning, Calm Environment, Massages, Diversional Activities, Ice Pack, Splinting, and Ambulation; Administer Analgesics as Ordered; Assist with Epidural Placement as Appropriate; Evaluate Therapeutic Effectiveness of Medication and Treatments (Libby Gayle RN) Outcome: Patient will Report Absence or Relief of Pain Consistent with Established Pain Goal (Libby Gayle RN) Outcome: Patient will have a Decrease in Signs and Symptoms of Discomfort (Libby Gayle RN) Outcome: Pain will be Controlled During Procedures (Libby Gayle RN) State: Risk For (Libby Gayle RN) Related To: Labor and Delivery Process; Perceived or Actual Threat to ; Fear of Unknown; Situational Crisis (Libby Gayle RN) Goal(s): Patient will have Decreased Anxiety and be able to Function at Acceptable Levels (Libby Gayle RN) Interventions: Assess Verbal and Nonverbal Behavioral Indicators of Anxiety; Assist Patient to Identify and Verbalize Symptoms of Anxiety; Identify and Demonstrate Techniques to Control Anxiety; Assist Patient with Coping Mechanisms to Manage Anxiety; Provide Theraputic Touch for the Patient; Explain to Patient, Using a Calm Reassuring Approach and Nonmedical Terms, All Activities, Procedures, and Concerns; Instruct Patient and Family about Post Discharge Care, Limitations, Symptoms to Report and Resources Available (Libby Gayle RN) Outcome: Patient will Identify, Verbalize and Demonstrate Techniques to Control Anxiety (Libby Gayle RN) Outcome: Patient's Posture, Facial Expressions, Gestures and Activity Level will Reflect Decreased Anxiety (Libby Gayle RN) Outcome: Patient will Verbalize a Sense of Control and/or Acceptance of the Situation (Libby Gayle RN) Outcome: Patient will Identify and Utilize Support Person (Libby Gayle RN) State: Risk For (Libby Gayle RN) Related To: Labor and Delivery Process; Treatment and Procedures; Impending Alterations in Family Dynamics; Feeding and Care (Libby Gayle RN) Goal(s): Patient will Accurately Verbalize Understanding of Plan of Care and Treatment; Patient and Family will Accurately Verbalize Understanding of the Disease Process (Libby Gayle RN) Interventions: Assess Motivation and Willingness of Patient/Family to Learn; Assess Preferred Learning Mode: One to One Instruction, Reading, Videos, Group Discussion or Demonstration; Assess Barriers to Learning: Pain, Emotional State, Language Barrier, Cognitive Impairment, Visual or Hearing Deficits; Assess Patient and Family Knowledge of Disease Process, Medications and Treatment; Discuss Therapy and/or Treatment Options, Describe Rationale Behind Management, Therapy and Treatment Recommendations; Instruct Patient and Family on Signs and Symptoms to Report; Instruct Patient and Family on Medication Effects and Side Effects; Provide Appropriate and Timely Education Using Multiple Techniques; Provide Patient and Family with Support Group Information and Resources; Give Clear and Thorough Explanations and Demonstrations (Libby Gayle RN) Outcome: Patient and Family will Verbalize Understanding of Condition, Treatment and Signs and Symptoms to Report (Libby Gayle RN) Outcome: Patient will Identify Perceived Learning Needs and Express Motivation to Learn (Libby Gayle RN) Outcome: Patient will Verbalize Understanding of Desired Content, and/or Performs Desired Skill Prior to Discharge (Libby Gayle RN) State: Risk For (Libby Gayle RN) Related To: Prolonged Labor or Induction (Libby Gayle RN) Goal(s): The Patient will be Free of Infection, Vital Signs Stable and Lab Work within Normal Parameters (Libby Gayle RN) Interventions: Instruct and Reinforce Proper Handwashing, Hygiene, and Care Techniques to Patient and Family; Monitor Vital Signs; Monitor Patient for the Following Signs of Infection: Fever, Abdominal Tenderness, Unusual Discharge; Monitor Aminiotic Fluid, Urine and Lochia for Color and Odor; Observe Wounds, Incisions and Invasive Line Sites for Redness, Drainage and Edema; Assess IV Sites per Hospital Policy; Monitor Lab and Test Results and Notify Provider of Abnormal Findings; Assess Nutritional Status and Promote Good Nutrition (Libby Gayle RN) Outcome: Patient will Remain Free of Infection (Libby Gayle RN) Outcome: Infection will be Recognized Early to Allow for Prompt Treatment (Libby Gayle RN) Outcome: Patient will have Vital Signs Within Expected Range (Libby Gayle RN) State: Risk For (Libby Gayle RN) Related To: Vaginal Delivery; Surgical Procedures; Prolonged Bedrest (Libby Gayle RN) Goal(s): Patient will Maintain Optimal Skin Integrity, Free of Breakdown, Injury or Infection (Libby Gayle RN) Interventions: Complete Screening for Pressure Ulcer Risk and Initiate Protocol per Hospital Policy; Monitor Site of Skin Impairment for Color Changes, Redness, Swelling, Warmth, Pain or Other Signs of Infection; Encourage and Assist with Position Changes; Monitor Patient's Mobility Status; Provide Adequate Nutrition and Fluids; Teach Patient Appropriate Hygienic Care; Teach Patient/Family Skin Care Management (Libby Gayle RN) Outcome: Patient will not have Evidence of Injury Such as Skin Breakdown, Scrapes, Cuts, or Bruising (Libby Gayle RN) Outcome: Patient will Report Any Altered Sensation or Pain at Site of Skin Impairment (Libby Gayle RN) Outcome: Patients Incisions and Wounds will be without Signs or Symptoms of Infection (Libby Gayle RN) Outcome: Patient will Demonstrate Understanding of Plan to Heal Skin and Prevent Reinjury and Verbalize Risk Factors (Libby Gayle RN) State: Risk For (Libby Gayle RN) Related To: Apprehension Related to Griffin Care (Libby Gayle RN) Goal(s): Parents will Demonstrate Progressive Parenting Behaviors (Libby Gayle RN) Interventions: Assess for Adequacy of Support Systems; Observe and Encourage Patient/Family Infant Attachment and Bonding Activities and Provide Feedback; Assess Patient/Family Understanding of Infant's Condition and Provide Accurate Information About Condition, Treatment and Prognosis; Assess for Patient/Family Behaviors that May Indicate Lack of Attachment; Provide a Safe Non-judgmental Environment for Patient/Family to Discuss Concerns; Promote Patient/Family Cohesiveness by Encouraging Discussion and Problem Solving; Air Support Operations Operator Referral as Indicated (Libby Gayle RN) Outcome: Patient/Family will Discuss Their Fears and the Possibility of Difficulties with Parenting (Libby Gayle RN) Outcome: Patient/Family will Exhibit Appropriate Bonding Behaviors with Infant (Libby Gayle RN) Outcome: Patient/Family will Verbalize Positive Feelings and Demonstrate Affection and Caring Toward (Libby Gayle RN)
[2016-04-06 07:51] LABS: HEMOGLOBIN 8.3 g/dL (12.0-15.5); HGB HCT DIFFERENCE -1.1; MEAN CORPUSCULAR HEMOGLOBIN 26.9 pg (27.0-33.4); MEAN CORPUSCULAR HGB CONC 32.1 g/dL (32.0-36.0); MEAN CORPUSCULAR VOLUME 84 fl (80-97); WHITE BLOOD COUNT 14.4 10^3/uL (4.0-10.5)
[2016-04-06] MEDS: FERROUS SULFATE 325 MG TABLET PO SCH ×2 (09:31→17:58)
[2016-04-06] MEDS: SENNOSIDES/DOCUSATE 8.6-50 MG 1 EACH TABLET PO SCH (09:31)
[2016-04-06] MEDS: DOCUSATE SODIUM 100 MG CAPSULE PO SCH ×2 (09:31→17:58)
[2016-04-06] MEDS: PRENATAL VITAMIN W-O CA NO5/FE FUMARATE/FA CAPSULE PO SCH (09:32)
--- NOTE | 2016-04-06 15:56 | PDOC PROGRESS REPORT ---
Subjective-OB Subjective: Post Delivery Day: 1 30 year old s/p vaginal delivery. and voiding without difficulty. Denies any needs at this time Physical Exam (OB) Vital Signs: Temp Pulse Resp BP Pulse Ox 97.7 F 91 18 121/68 98 04/06/16 08:51 04/06/16 08:51 04/06/16 08:51 04/06/16 08:51 04/06/16 08:51 Intake & Output 04/05/16 04/06/16 04/07/16 06:59 06:59 06:59 Weight 121.65 kg - General General Appearance: Appears well In distress: None - Episiotomy/Laceration Site Condition: Well Approximated - Lochia Lochia Amount: Scant < 10 ml Lochia Color: Rubra/Red - Abdomen Description: Soft, Round Hernia Present: No Fundal Description: Firm, Midline Fundal Height: u/u - u/2 - Respiratory Respiratory Status: No respiratory distress - Neurological Orientation: AAOx4 - Psychological Associated symptoms: Normal affect, Normal mood Objective-Diagnostic Laboratory: 04/06/16 07:25 04/05/16 04/06/16 17:50 07:25 WBC 17.9 H 14.4 H RBC 3.17 L 3.10 L Hgb 8.6 L 8.3 L Hct 26.6 L 26.0 L MCV 84 84 MCH 27.1 26.9 L MCHC 32.4 32.1 RDW 15.1 H 15.0 H Plt Count 264 227 Seg Neutrophils % 85.1 H Lymphocytes % 9.0 L Monocytes % 5.7 Eosinophils % 0.1 Basophils % 0.1 Absolute Neutrophils 15.2 H Absolute Lymphocytes 1.6 Absolute Monocytes 1.0 Absolute Eosinophils 0.0 Absolute Basophils 0.0 Assessment and Plan(PN) - Assessment and Plan (1) Vaginal delivery Is this a current diagnosis for this admission?: YesPlan: continue stay - Time Spent with Patient Time with patient: 15-25 minutes Medications reviewed and adjusted accordingly: Yes - Disposition Anticipated Discharge: Home Within: within 24 hours
[2016-04-07] MEDS: IBUPROFEN 800 MG TABLET PO SCH (06:22)
[2016-04-07 08:07] VITALS: BP 119/73
[2016-04-07] MEDS: SENNOSIDES/DOCUSATE 8.6-50 MG 1 EACH TABLET PO SCH (10:03)
[2016-04-07] MEDS: DOCUSATE SODIUM 100 MG CAPSULE PO SCH (10:04)
[2016-04-07] MEDS: PRENATAL VITAMIN W-O CA NO5/FE FUMARATE/FA CAPSULE PO SCH (10:04)
[2016-04-07] MEDS: FERROUS SULFATE 325 MG TABLET PO SCH (10:04)
--- NOTE | 2016-04-07 11:20 | PDOC DISCHARGE SUMMARY ---
Final Diagnosis Discharge Date: 04/07/16 - Final Diagnosis (1) Vaginal delivery Is this a current diagnosis for this admission?: Yes Discharge Data - Discharge Medication Home Medications: Pnv95/Ferrous Fumarate/FA [ Caplet] 1 each PO DAILY 03/14/16 Reason(s) for Admission: Onset of Labor Procedures: NST Intrapartum Procedure(s): Spontaneous Vaginal Delivery Complication(s): Laceration-Vaginal Laceration-Degree: 2nd - Diagnosis Test Laboratory: Temp Pulse Resp BP Pulse Ox 98.3 F 82 18 119/73 100 04/07/16 07:51 04/07/16 07:51 04/07/16 07:51 04/07/16 07:41 04/07/16 07:51 04/05/16 04/05/16 04/05/16 03:49 04:15 17:50 RBC 3.66 L 3.17 L Hgb 10.2 L 8.6 L Hct 30.5 L 26.6 L Urine Opiates Screen NEGATIVE 04/06/16 07:25 RBC 3.10 L Hgb 8.3 L Hct 26.0 L Urine Opiates Screen - Discharge information/Instructions Discharge Activity: Activity As Tolerated, Balance Activity w/Rest, No Lifting Over 10 Pounds, No Lifting/Push/Pulling, Pelvic Rest, Slowly Increase Activity, No tub bath, Walk Frequently Discharge Diet: Regular Disposition: HOME, SELF-CARE Follow up with: [facility] in: 4, Weeks
== END 2016-04-07 12:40 | disposition home or self-care (01) | DRG 775 ==
LOC: LC 03:39 → LR 04:00 → 2S 14:17
PROVIDERS: ADMIT Obstetrics & Gynecology; ATTEND Obstetrics & Gynecology
PROC: 10E0XZZ Delivery of Products of Conception, External Approach (ICD-10-PCS; principal; 2016-04-05)
PROC: 0KQM0ZZ Repair Perineum Muscle, Open Approach (ICD-10-PCS; 2016-04-05)
DX: O62.3 Precipitate labor (principal); O71.4 Obstetric high vaginal laceration alone; Z3A.40 40 weeks gestation of pregnancy; Z37.0 Single live birth
CPT/HCPCS: 36415; 80307; 81005; 85025; 85027; 86592; 86850; 86900; 86901; 88307; J2590; J3490

== ENCOUNTER 2016-06-03 08:49 | Emergency (ER) | payer MEDICAID ==
[2016-06-03 09:01] VITALS: BP 119/71
== END 2016-06-03 09:54 | disposition left against medical advice (07) ==
LOC: ER 08:49
DX: Z53.9 Procedure and treatment not carried out, unspecified reason (principal); R10.9 Unspecified abdominal pain

== ENCOUNTER 2016-06-24 23:06 | Emergency (ER) | payer MEDICAID ==
[2016-06-24 23:20] VITALS: BP 131/67
[2016-06-25 00:22] LABS: ABSOLUTE EOSINOPHILS # (AUTO) 0.1 10^3/uL (0.0-0.6); ABSOLUTE LYMPHOCYTES (AUTO) 2.2 10^3/uL (0.5-4.7); ABSOLUTE MONOCYTES (AUTO) 0.6 10^3/uL (0.1-1.4); ABSOLUTE NEUT (AUTO) 5.4 10^3/uL (1.7-8.2); BASOPHILS % (AUTO) 0.6 % (0-2); EOSINOPHILS % (AUTO) 0.9 % (0-6); HEMATOCRIT 35.5 % (36.0-47.0); HEMOGLOBIN 11.7 g/dL (12.0-15.5); HGB HCT DIFFERENCE -0.4; LYMPHOCYTES % (AUTO) 26.4 % (13-45); MEAN CORPUSCULAR HGB CONC 33.1 g/dL (32.0-36.0); MEAN CORPUSCULAR VOLUME 82 fl (80-97); MONOCYTES % (AUTO) 7.4 % (3-13); RED BLOOD COUNT 4.34 10^6/uL (3.72-5.28); RED CELL DISTRIBUTION WIDTH 13.8 % (11.5-14.0); SEGMENTED NEUTROPHILS % (AUTO) 64.7 % (42-78); WHITE BLOOD COUNT 8.3 10^3/uL (4.0-10.5)
[2016-06-25 00:32] LABS: ALANINE AMINOTRANSFERASE 49 U/L (9-52); ALBUMIN 4.1 g/dL (3.5-5.0); ALKALINE PHOSPHATASE 109 U/L (38-126); ANION GAP 14 (5-19); ASPARTATE AMINO TRANSFERASE 45 U/L (14-36); BILIRUBIN,DIRECT 0.1 mg/dL (0.0-0.4); BILIRUBIN,TOTAL 0.2 mg/dL (0.2-1.3); BLOOD UREA NITROGEN 18 mg/dL (7-20); CALCIUM 9.5 mg/dL (8.4-10.2); CARBON DIOXIDE 25 mmol/L (22-30); CHLORIDE 106 mmol/L (98-107); CREATININE RESULT 0.92 mg/dL (0.52-1.25); GLUCOSE 103 mg/dL (75-110); LIPASE 76.3 U/L (23-300); POTASSIUM 4.1 mmol/L (3.6-5.0); SODIUM 144.9 mmol/L (137-145); TOTAL PROTEIN 7.1 g/dL (6.3-8.2)
[2016-06-25 01:10] LABS: APPEARANCE,URINE SLIGHTLY-CLOUDY; BILIRUBIN,URINE NEGATIVE (NEGATIVE); GLUCOSE, URINE NEGATIVE (NEGATIVE); KETONES,URINE NEGATIVE (NEGATIVE); LEUKOCYTE ESTERASE,URINE MODERATE (NEGATIVE); NITRITE,URINE NEGATIVE (NEGATIVE); PROTEIN,URINE NEGATIVE (NEGATIVE); URINE SPECIFIC GRAVITY 1.025; UROBILINOGEN,URINE NEGATIVE mg/dL (<2.0)
--- NOTE | 2016-06-25 01:27 | ER Document Report ---
ED GI/ - General Chief Complaint: Abdominal Pain Stated Complaint: UPPER ABDOMINAL PAIN Notes: The patient is a 30-year-old female, past medical history cholelithiasis, prior ectopic with tubal removal, presents with right upper quadrant pain that started after she ate fried chicken. The pain lasted about 2 hours and then it resolved. During her 3 months ago, she was told that she has gallstones. She denies current nausea, vomiting, current abdominal pain, fevers , back pain, urinary symptoms or flank pain. TRAVEL OUTSIDE OF THE [place] 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 Penicillins Allergy (Severe, Verified 06/03/16 09:03) Anaphylaxis Past Medical History - General Information source: Patient - Social History Smoking Status: Never Smoker Family History: Reviewed & Not Pertinent Patient has suicidal ideation: No Patient has homicidal ideation: No Renal/ Medical History: Denies: Hx Peritoneal Dialysis Past Surgical History: Reports: Hx Gynecologic Surgery - Ruptured ectopic surgery Review of Systems - Review of Systems Notes: REVIEW OF SYSTEMS: CONSTITUTIONAL: -fevers, -chills EENT: -eye pain, -difficulty swallowing, -nasal congestion CARDIOVASCULAR:-chest pain, -syncope. RESPIRATORY: -cough, -SOB GASTROINTESTINAL: +abdominal pain, -nausea, -vomiting, -diarrhea GENITOURINARY: -dysuria, -hematuria MUSCULOSKELETAL: -back pain, -neck pain SKIN: -rash or skin lesions. HEMATOLOGIC: -easy bruising or bleeding. LYMPHATIC: -swollen, enlarged glands. NEUROLOGICAL: -altered mental status or loss of consciousness, -headache, - neurologic symptoms PSYCHIATRIC: -anxiety, -depression. ALL OTHER SYSTEMS REVIEWED AND NEGATIVE. Physical Exam - Vital signs Vitals: Temp Pulse Resp BP Pulse Ox 97.6 F 72 16 131/67 H 99 06/24/16 23:12 06/24/16 23:12 06/24/16 23:12 06/24/16 23:12 06/24/16 23:12 - Notes Notes: PHYSICAL EXAMINATION: GENERAL: Well-appearing, well-nourished and in no acute distress. HEAD: Atraumatic, normocephalic. EYES: Pupils equal round and reactive to light, extraocular movements intact, sclera anicteric, conjunctiva are normal. ENT: nares patent, oropharynx clear without exudates. Moist mucous membranes. NECK: Normal range of motion, supple without lymphadenopathy LUNGS: Breath sounds clear to auscultation bilaterally and equal. No wheezes rales or rhonchi. HEART: Regular rate and rhythm without murmurs ABDOMEN: Soft, nontender, normoactive bowel sounds. No guarding, no rebound. No masses appreciated. EXTREMITIES: Normal range of motion, no pitting or edema. No cyanosis. NEUROLOGICAL: Cranial nerves grossly intact. Normal speech, normal gait. Normal sensory, motor, and reflex exams. PSYCH: Normal mood, normal affect. SKIN: Warm, Dry, normal turgor, no rashes or lesions noted. Course - Re-evaluation Re-evalutation: Patient with right upper quadrant abdominal pain, but no signs of cholecystitis at this time. Negative Lafleur's sign, normal LFTs and no gallbladder thickening or pericholecystic fluid on bedside ultrasound. Patient does have evidence of a UTI on urinalysis, but she does not have dysuria or any other urinary symptoms. Will not treat at this time. provided with general surgeon and given strict return precautions. Instructed her to eat a low-fat diet. Patient comfortable with plan. - Vital Signs Vital signs: Temp Pulse Resp BP Pulse Ox 97.6 F 72 16 131/67 H 99 06/24/16 23:12 06/24/16 23:12 06/24/16 23:12 06/24/16 23:12 06/24/16 23:12 - Laboratory Result Diagrams: 06/25/16 00:08 06/25/16 00:08 Laboratory results interpreted by me: 06/25/16 06/25/16 06/25/16 00:08 00:08 00:30 Hgb 11.7 L Hct 35.5 L AST 45 H Urine Blood SMALL H Ur Leukocyte Esterase MODERATE H Procedures - Ultrasound/Bedside Ultrasound/Bedside Time completed: 02:00 - RUQ US Ultrasound: Normal, Gallbladder stones. No: Dilated common duct, Pericolic fluid, Thick gallbladder wall Discharge - Discharge Clinical Impression: Cholelithiasis Qualifiers: Cholelithiasis location: gallbladder Cholecystitis presence: without cholecystitis Biliary obstruction: without biliary obstruction Qualified Code(s) : K80.20 - Calculus of gallbladder without cholecystitis without obstruction Condition: Good Disposition: HOME, SELF-CARE Additional Instructions: Gallbladder Disease Your evaluation shows evidence of gallbladder disease. The gallbladder is a pouch under the liver which stores bile. Stones, infection, or irritation of the gallbladder cause attacks of pain. Certain foods -- fats in particular -- may provoke attacks. The usual treatment for gallbladder disease is surgical removal of the gallbladder -- called a cholecystectomy. You will be referred to a physician qualified to advise you on the best treatment for your problem. Hospitalization is not necessary. Take clear liquids only until you are painfree. After that, you should stay on a low-fat diet, with frequent SMALL meals. Call the doctor or return at once if you develop severe pain, repeated vomiting, fever, or jaundice (a yellow color in the skin and whites of the eyes) . Referrals: KENIA RIOS MD [ACTIVE STAFF] - Follow up as needed
== END 2016-06-25 02:00 | disposition home or self-care (01) ==
LOC: ER 23:06
DX: K80.20 Calculus of gallbladder without cholecystitis without obstruction (principal); R10.10 Upper abdominal pain, unspecified; Z98.51 Tubal ligation status; Z88.0 Allergy status to penicillin; Z91.010 Allergy to peanuts
CPT/HCPCS: 36415; 80053; 81001; 81025; 83690; 85025; 99284

== ENCOUNTER 2018-08-15 10:04 | Emergency (ER) | payer MEDICAID ==
--- NOTE | 2018-08-15 10:27 | ER Document Report ---
ED Medical Screen (RME) - General Chief Complaint: Abdominal Pain Stated Complaint: ABDOMINAL PAIN Time Seen by Provider: 08/15/18 10:19 Primary Care Provider: KENIA ELDRIDGE MD [Primary Care Provider] - Follow up as needed Notes: Patient presents complaining of right lower pelvic pain that started yesterday. Patient is currently G5, P1 and suspects that she is about 5 to 6 weeks . Patient denies any vaginal bleeding but does report discharge. Patient's blood type a positive I have greeted and performed a rapid initial assessment of this patient. A comprehensive ED assessment and evaluation of the patient, analysis of test results and completion of the medical decision making process will be conducted by additional ED providers. TRAVEL OUTSIDE OF THE [place] 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 Penicillins Allergy (Severe, Verified 06/03/16 09:03) Anaphylaxis Past Medical History Renal/ Medical History: Denies: Hx Peritoneal Dialysis Past Surgical History: Reports: Hx Gynecologic Surgery - Ruptured ectopic surgery Physical Exam - Vital signs Vitals: Temp Pulse Resp BP Pulse Ox 98.2 F 97 14 134/77 H 100 08/15/18 10:14 08/15/18 10:14 08/15/18 10:14 08/15/18 10:14 08/15/18 10:14 - Abdominal Tenderness: Tender - Right lower pelvic Course - Vital Signs Vital signs: Temp Pulse Resp BP Pulse Ox 98.2 F 97 14 134/77 H 100 08/15/18 10:14 08/15/18 10:14 08/15/18 10:14 08/15/18 10:14 08/15/18 10:14 Doctor's Discharge - Discharge Referrals: KENIA ELDRIDGE MD [Primary Care Provider] - Follow up as needed
[2018-08-15 11:04] LABS: ABSOLUTE LYMPHOCYTES (AUTO) 1.8 10^3/uL (0.5-4.7); ABSOLUTE MONOCYTES (AUTO) 0.5 10^3/uL (0.1-1.4); ABSOLUTE NEUT (AUTO) 6.4 10^3/uL (1.7-8.2); BASOPHILS % (AUTO) 0.4 % (0-2); EOSINOPHILS % (AUTO) 0.5 % (0-6); HEMOGLOBIN 13.2 g/dL (12.0-15.5); LYMPHOCYTES % (AUTO) 20.3 % (13-45); MEAN CORPUSCULAR HEMOGLOBIN 28.8 pg (27.0-33.4); MEAN CORPUSCULAR VOLUME 85 fl (80-97); MONOCYTES % (AUTO) 5.6 % (3-13); PLATELET COUNT 306 10^3/uL (150-450); RED BLOOD COUNT 4.59 10^6/uL (3.72-5.28); RED CELL DISTRIBUTION WIDTH 13.4 % (11.5-14.0); SEGMENTED NEUTROPHILS % (AUTO) 73.2 % (42-78); TOTAL CELLS COUNTED % (AUTO) 100 %; WHITE BLOOD COUNT 8.8 10^3/uL (4.0-10.5)
[2018-08-15 11:26] LABS: ALANINE AMINOTRANSFERASE 23 U/L (9-52); ALBUMIN 4.2 g/dL (3.5-5.0); ALKALINE PHOSPHATASE 84 U/L (38-126); ANION GAP 8 (5-19); ASPARTATE AMINO TRANSFERASE 19 U/L (14-36); BILIRUBIN,DIRECT 0.2 mg/dL (0.0-0.4); BILIRUBIN,TOTAL 0.5 mg/dL (0.2-1.3); BLOOD UREA NITROGEN 10 mg/dL (7-20); CALCIUM 9.5 mg/dL (8.4-10.2); CARBON DIOXIDE 26 mmol/L (22-30); CHLORIDE 105 mmol/L (98-107); GLUCOSE 90 mg/dL (75-110); POTASSIUM 4.1 mmol/L (3.6-5.0); SODIUM 139.3 mmol/L (137-145); TOTAL PROTEIN 7.4 g/dL (6.3-8.2)
--- NOTE | 2018-08-15 11:41 | ER Document Report ---
ED GI/ - General Chief Complaint: Abdominal Pain Stated Complaint: ABDOMINAL PAIN Time Seen by Provider: 08/15/18 10:19 Primary Care Provider: LENA CHRISTINE DO [ACTIVE STAFF] - Follow up as needed TRAVEL OUTSIDE OF THE [place] IN LAST 30 DAYS: No - HPI Notes: 08/15/18 11:36 Patient is a 33-year-old female who presents to the emergency department for lower abdominal cramping. Patient is a , states that she has had one ectopic , 2 miscarriages, and one living child at home. Patient states that her last menstrual period was July 07 of this year that she estimates being around 6 weeks . Patient states she did have her first OBGYN appointment today around 3 PM at [facility]. She states she did call them this morning due to the lower abdominal cramping and they told her to go to the emergency department for further evaluation. Patient states that the light abdominal cramping started yesterday and continued to get worse this morning. Patient s tates she was making her child breakfast this morning when the cramping became intense and constant across the whole lower abdomen. Patient states the discomfort is now lingering in the right lower quadrant. Patient does report a whitish vaginal discharge that she saw yesterday but is now gone. Patient denies vaginal itching. Patient denies spotting or vaginal bleeding. Patient states she did feel the urge to urinate this morning in which she went to the restroom and felt an intense pressure on her vagina. Patient denies any urinary symptoms. 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 Penicillins Allergy (Severe, Verified 06/03/16 09:03) Anaphylaxis Past Medical History - General Information source: Patient - Social History Smoking Status: Unknown if Ever Smoked Cigarette use (# per day): No Frequency of alcohol use: None Drug Abuse: None Lives with: Spouse/Significant other Family History: Reviewed & Not Pertinent Patient has suicidal ideation: No Patient has homicidal ideation: No - Past Medical History Cardiac Medical History: Reports: None Pulmonary Medical History: Reports: None EENT Medical History: Reports: None Neurological Medical History: Reports: None Endocrine Medical History: Reports: None Renal/ Medical History: Reports: Hx Ectopic . Denies: Hx Peritoneal Dialysis Malignancy Medical History: Reports: None GI Medical History: Reports: None Musculoskeletal Medical History: Reports None Skin Medical History: Reports None Psychiatric Medical History: Reports: None Traumatic Medical History: Reports: None Infectious Medical History: Reports: None Past Surgical History: Reports: Hx Gynecologic Surgery - Ruptured ectopic surgery Review of Systems - Review of Systems Constitutional: No symptoms reported EENT: No symptoms reported Cardiovascular: No symptoms reported Respiratory: No symptoms reported Gastrointestinal: No symptoms reported Genitourinary: See HPI Female Genitourinary: See HPI Musculoskeletal: No symptoms reported Skin: No symptoms reported Hematologic/Lymphatic: No symptoms reported Neurological/Psychological: No symptoms reported Physical Exam - Vital signs Vitals: Temp Pulse Resp BP Pulse Ox 98.2 F 97 14 134/77 H 100 08/15/18 10:14 08/15/18 10:14 08/15/18 10:14 08/15/18 10:14 08/15/18 10:14 Interpretation: Normal - Notes Notes: GENERAL: Well-appearing, well-nourished and in no acute distress. HEAD: Atraumatic, normocephalic. EYES: Pupils equal round and reactive to light, extraocular movements intact, sclera anicteric, conjunctiva are normal. ENT: Nares patent, oropharynx clear without exudates. Moist mucous membranes. NECK: Normal range of motion, supple without lymphadenopathy or JVD. LUNGS: Breath sounds clear to auscultation bilaterally and equal. No wheezes rales or rhonchi. HEART: Regular rate and rhythm without murmurs, rubs or gallops. ABDOMEN: Soft, round, nontender, normoactive bowel sounds. No guarding, no rebound. No masses appreciated. BACK: No cervical, thoracic, lumbar midline tenderness. No saddle anesthesia, normal distal neurovascular exam. GENITOURINARY: Deferred. EXTREMITIES: Normal range of motion, no pitting or edema. No clubbing or cyanosis. NEUROLOGICAL: Cranial nerves II through XII grossly intact. Normal speech, nor mal gait. PSYCH: Normal mood, normal affect. SKIN: Warm, Dry, normal turgor, no rashes or lesions noted. Course - Re-evaluation Re-evalutation: 08/15/18 11:40 Upon initial evaluation patient sitting upright on stretcher in no acute distress. Non-toxic appearing. Currently denies vaginal bleeding or discharge. Will obtain basic labs as well as an ultrasound. Patient is not tachycardic or hypotensive at this time. We will continue to monitor. 08/15/18 12:26 Patient in ultrasound. 08/15/18 13:09 Radiologist called to report ultrasound findings. 08/15/18 13:[address] Bills, automation machine operator OBGYN to discuss ultrasound findings to include no definite visualized intra-or extrauterine . There is a small amount of free fluid within the cul de sac. A hypoechoic area adjacent to the right ovary possible corpus luteal cyst although ectopic cannot be ruled out. Radiologist recommends follow up ultrasound and serial BHCG levels to accurately assess status. Per Dr. Bills patient to make a follow up appointment at [facility] this monday (in two days) for repeat ultrasound and blood work. Place patient on strict return precautions and recommends Keflex or Macrobid for possible developing UTI. 08/15/18 13:[address] Bills with patient and . Patient aller gic to [facility], reports anaphylaxis as a child. Will prescribe Macrobid as suggested by Dr. Bills. Will give first dose in the emergency room. Instructed patient to return with strict precautions to include vaginal bleeding, severe abdominal pain, dizziness, fainting, vaginal discharge, fever, or any change or new or worsening symptoms. Patient and both verbalized understanding. - Vital Signs Vital signs: Temp Pulse Resp BP Pulse Ox 97.8 F 77 18 132/54 H 98 08/15/18 14:09 08/15/18 14:09 08/15/18 14:09 08/15/18 14:09 08/15/18 14:09 - Laboratory Result Diagrams: 08/15/18 10:30 08/15/18 10:30 Laboratory results interpreted by me: 08/15/18 08/15/18 10:30 10:30 Beta HCG, Quant 1106.90 H Urine Ketones 20 H Urine Blood MODERATE H Ur Leukocyte Esterase LARGE H - Diagnostic Test Radiology reviewed: Reports reviewed Discharge - Discharge Clinical Impression: Elevated serum hCG Abdominal pain Qualifiers: Abdominal location: right lower quadrant Qualified Code(s): R10.31 - Right lower quadrant pain Urinary tract infection Qualifiers: Urinary tract infection type: site unspecified Hematuria presence: with hematuria Qualified Code(s): N39.0 - Urinary tract infection, site not specified Condition: Stable Disposition: HOME, SELF-CARE Additional Instructions: Today you were seen in the emergency department for lower abdominal pain. Your beta-hCG levels were 1100. Your ultrasound was not consistent at this time with an intrauterine . This could be due to the low HCG levels. An ectopic could not be excluded. I spoke with Dr. bills at [facility] who would like you to follow-up in the office in 2 days, which is Monday. At that time you will have a repeat ultrasound and repeat lab work. Please call the office for an appointment. She also recommends that you be treated for a possible developing urinary tract infection with Macrobid. Please return to the emergency department if you have worsening pain, dizziness, fainting, vaginal bleeding or discharge, severe abdominal pain, fever or any other concerning signs or symptoms. Start a vitamin. You may take Tylenol but avoid Ibuprofen. Prescriptions: Nitrofurantoin/Nitrofuran Mac [Macrobid 100 mg Capsule] 1 tab PO BID #10 capsule Referrals: LENA CHRISTINE, [ACTIVE STAFF] - Follow up as needed
[2018-08-15 12:35] LABS: CHLAM PCR NOT DETECTED (NOT DETECT); GON PCR NOT DETECTED (NOT DETECT)
[2018-08-15 12:41] LABS: APPEARANCE,URINE CLOUDY; BILIRUBIN,URINE NEGATIVE (NEGATIVE); COLOR,URINE YELLOW; GLUCOSE, URINE NEGATIVE (NEGATIVE); KETONES,URINE 20 mg/dL (NEGATIVE); LEUKOCYTE ESTERASE,URINE LARGE (NEGATIVE); NITRITE,URINE NEGATIVE (NEGATIVE); PROTEIN,URINE NEGATIVE (NEGATIVE); URINE SPECIFIC GRAVITY 1.024; UROBILINOGEN,URINE NEGATIVE mg/dL (<2.0)
--- NOTE | 2018-08-15 13:16 | RADIOLOGY REPORT (SQ) ---
EXAM DESCRIPTION: U/S OB TRANSVAG W/DOPPLER COMPLETED DATE/TIME: 08/15/2018 12:52 pm REASON FOR STUDY: right lower abdominal pain COMPARISON: 12/29/2015 TECHNIQUE: Transvaginal and transabdominal static and realtime grayscale images acquired of the pelv is. Additional selected spectral and color Doppler images recorded. All images stored on PACs. CLINICAL AGE: LMP 07/07/2018, JAMAL 04/13/2019, EGA 8 weeks 4 days bHC LIMITATIONS: None. FINDINGS: UTERUS: No visualized intrauterine . RIGHT ADNEXA: Normal in size measuring 1.9 x 1.4 x 2.7 cm. There is a hypoechoic area adjacent to th e right ovary with peripheral flow. No adnexal free fluid. LEFT ADNEXA: Normal in size measuring 3.2 x 2.5 x 1.9 cm. Normal vascular flow. No adnexal free fluid. No adnexal masses. FREE FLUID: Small amount of free fluid within the cul-de-sac. OTHER: No other significant finding. IMPRESSION: 1. NO DEFINITE VISUALIZED INTRA- OR EXTRAUTERINE WHICH MAY NOT BE AN UNEXPECT ED FINDING GIVEN BETA HCG LEVEL. 2. SMALL AMOUNT OF FREE FLUID WITHIN THE CUL DE SAC. HYPOECHOIC AREA ADJACENT TO THE RIGHT OVARY PO SSIBLY CORPUS LUTEAL CYST ALTHOUGH ECTOPIC CANNOT BE EXCLUDED. 3. FOLLOW-UP ULTRASOUND AND SERIAL BHCG LEVELS STRONGLY RECOMMENDED TO ACCURATELY ASSESS S TATUS. Findings discussed with Dr. Xie at the time of interpretation. TECHNICAL DOCUMENTATION: JOB ID: [id number] [employer]- All Rights Reserved Reading location - IP/workstation name: [email or web address]
[2018-08-15] MEDS ORDERED: NITROFURANTOIN MONOHYD/M-CRYST 100 MG CAPSULE PO ONE (14:15)
[2018-08-15 14:32] VITALS: BP 132/54
== END 2018-08-15 14:35 | disposition home or self-care (01) ==
LOC: ER 10:04
DX: N39.0 Urinary tract infection, site not specified (principal); R31.9 Hematuria, unspecified; R10.31 Right lower quadrant pain; Z32.01 Encounter for pregnancy test, result positive; Z87.59 Personal history of other complications of pregnancy, childbirth and the puerperium; Z87.892 Personal history of anaphylaxis; Z91.010 Allergy to peanuts; Z88.0 Allergy status to penicillin
CPT/HCPCS: 99284; 36415; 84702; 85025; 80053; 81001; 87491; 87591; 76817; 93976; J3490; J8499

== ENCOUNTER → 2018-08-17 | Outpatient (CLI) | payer MEDICAID | LOC: OD 09:21 | PROVIDERS: ATTEND Obstetrics & Gynecology | DX: O36.80X0 Pregnancy with inconclusive fetal viability, not applicable or unspecified (principal) | CPT/HCPCS: 36415; 84702 ==

== ENCOUNTER → 2018-08-20 | Outpatient (CLI) | payer MEDICAID ==
[2018-08-20 12:29] LABS: ABSOLUTE EOSINOPHILS # (AUTO) 0.1 10^3/uL (0.0-0.6); ABSOLUTE LYMPHOCYTES (AUTO) 1.8 10^3/uL (0.5-4.7); ABSOLUTE MONOCYTES (AUTO) 0.4 10^3/uL (0.1-1.4); ABSOLUTE NEUT (AUTO) 8.4 10^3/uL (1.7-8.2); BASOPHILS % (AUTO) 0.2 % (0-2); EOSINOPHILS % (AUTO) 0.8 % (0-6); HEMOGLOBIN 12.9 g/dL (12.0-15.5); LYMPHOCYTES % (AUTO) 16.4 % (13-45); MEAN CORPUSCULAR HEMOGLOBIN 28.9 pg (27.0-33.4); MEAN CORPUSCULAR HGB CONC 33.8 g/dL (32.0-36.0); MEAN CORPUSCULAR VOLUME 85 fl (80-97); MONOCYTES % (AUTO) 4.2 % (3-13); PLATELET COUNT 273 10^3/uL (150-450); RED BLOOD COUNT 4.46 10^6/uL (3.72-5.28); RED CELL DISTRIBUTION WIDTH 13.5 % (11.5-14.0); SEGMENTED NEUTROPHILS % (AUTO) 78.4 % (42-78); TOTAL CELLS COUNTED % (AUTO) 100 %; WHITE BLOOD COUNT 10.7 10^3/uL (4.0-10.5)
[2018-08-20 12:54] LABS: ALANINE AMINOTRANSFERASE 21 U/L (9-52); ALBUMIN 4.2 g/dL (3.5-5.0); ALKALINE PHOSPHATASE 87 U/L (38-126); ANION GAP 11 (5-19); ASPARTATE AMINO TRANSFERASE 20 U/L (14-36); BILIRUBIN,DIRECT 0.3 mg/dL (0.0-0.4); BILIRUBIN,TOTAL 0.4 mg/dL (0.2-1.3); BLOOD UREA NITROGEN 7 mg/dL (7-20); CALCIUM 9.5 mg/dL (8.4-10.2); CARBON DIOXIDE 26 mmol/L (22-30); CHLORIDE 104 mmol/L (98-107); GLUCOSE 85 mg/dL (75-110); POTASSIUM 4.5 mmol/L (3.6-5.0); SODIUM 141.3 mmol/L (137-145); TOTAL PROTEIN 7.5 g/dL (6.3-8.2)
== END ==
LOC: OD 11:51
PROVIDERS: ATTEND Obstetrics & Gynecology
DX: O26.851 Spotting complicating pregnancy, first trimester (principal); O02.1 Missed abortion; R10.2 Pelvic and perineal pain
CPT/HCPCS: 36415; 80053; 84702; 85025

== ENCOUNTER → 2018-08-22 | Outpatient (CLI) | payer MEDICAID ==
[2018-08-22 16:36] LABS: ABSOLUTE BASOPHILS # (AUTO) 0.1 10^3/uL (0.0-0.2); ABSOLUTE EOSINOPHILS # (AUTO) 0.1 10^3/uL (0.0-0.6); ABSOLUTE MONOCYTES (AUTO) 0.3 10^3/uL (0.1-1.4); ABSOLUTE NEUT (AUTO) 8.9 10^3/uL (1.7-8.2); BASOPHILS % (AUTO) 0.5 % (0-2); EOSINOPHILS % (AUTO) 0.5 % (0-6); HEMATOCRIT 37.3 % (36.0-47.0); HEMOGLOBIN 12.6 g/dL (12.0-15.5); LYMPHOCYTES % (AUTO) 17.5 % (13-45); MEAN CORPUSCULAR HEMOGLOBIN 28.8 pg (27.0-33.4); MEAN CORPUSCULAR HGB CONC 33.9 g/dL (32.0-36.0); MEAN CORPUSCULAR VOLUME 85 fl (80-97); MONOCYTES % (AUTO) 2.3 % (3-13); PLATELET COUNT 260 10^3/uL (150-450); RED BLOOD COUNT 4.38 10^6/uL (3.72-5.28); RED CELL DISTRIBUTION WIDTH 13.5 % (11.5-14.0); SEGMENTED NEUTROPHILS % (AUTO) 79.2 % (42-78); TOTAL CELLS COUNTED % (AUTO) 100 %; WHITE BLOOD COUNT 11.2 10^3/uL (4.0-10.5)
== END ==
LOC: OD 16:04
PROVIDERS: ATTEND Obstetrics & Gynecology
DX: O00.90 Unspecified ectopic pregnancy without intrauterine pregnancy (principal)
CPT/HCPCS: 36415; 84702; 85025

== ENCOUNTER 2018-08-23 16:48 | Day surgery (SDC) | payer MEDICAID ==
[~2018-08-23 16:48] MED LIST: GLYCOPYRROLATE 1 MG/5 ML VIAL ONE; NEOSTIGMINE METHYLSULFATE 10 MG/10 ML VIAL ONE; ROCURONIUM BROMIDE INJ 50 MG/5 ML VIAL IV ONE; SUCCINYLCHOLINE CHLORIDE INJ 200 MG/10 ML VIAL ONE
[2018-08-23] MEDS ORDERED: BUPIVACAINE HCL 0.25 % INJ/PF (2.5 MG/1 ML) 30 ML VIAL ONE (16:52)
[2018-08-23] MEDS ORDERED: CEFAZOLIN 1 GM/D5W RTU 1 GM/50 ML RTUPB IV ONE (16:54)
[2018-08-23] MEDS ORDERED: MIDAZOLAM 2 MG/2 ML INJ ONE ×2 (16:58→21:33)
[2018-08-23] MEDS ORDERED: MORPHINE SULFATE 10 MG/ML INJ ONE ×2 (16:58→20:46)
[2018-08-23] MEDS ORDERED: FENTANYL CITRATE INJ/PF 100 MCG/2 ML AMPUL ONE ×2 (16:58→21:33)
[2018-08-23] MEDS ORDERED: DEXAMETHASONE SOD PHOSPHATE INJ 4 MG/1 ML VIAL ONE (16:58)
[2018-08-23] MEDS ORDERED: ONDANSETRON HCL INJ/PF 4 MG/2 ML SDV ONE (16:58)
[2018-08-23] MEDS ORDERED: PROPOFOL INJ 200 MG/20 ML VIAL IV ONE ×2 (16:59→21:33)
[2018-08-23 17:27] LABS: HEMATOCRIT 38.1 % (36.0-47.0); HEMOGLOBIN 12.8 g/dL (12.0-15.5); MEAN CORPUSCULAR HEMOGLOBIN 28.7 pg (27.0-33.4); MEAN CORPUSCULAR HGB CONC 33.7 g/dL (32.0-36.0); MEAN CORPUSCULAR VOLUME 85 fl (80-97); PLATELET COUNT 258 10^3/uL (150-450); RED BLOOD COUNT 4.48 10^6/uL (3.72-5.28); RED CELL DISTRIBUTION WIDTH 13.7 % (11.5-14.0); WHITE BLOOD COUNT 12.3 10^3/uL (4.0-10.5)
[2018-08-23] MEDS ORDERED: ONDANSETRON HCL 8 MG TABLET PO PRN (18:47)
[2018-08-23] MEDS ORDERED: OXYCODONE-ACETAMINOPHEN 5-325 MG TABLET PO PRN (18:47)
[2018-08-23] MEDS ORDERED: OXYCODONE-ACETAMINOPHEN 5-325 MG TABLET ONE (19:26)
[2018-08-23] MEDS ORDERED: IBUPROFEN 800 MG TABLET ONE (19:57)
--- NOTE | 2018-08-23 20:29 | OPERATIVE REPORT E ---
Operative Report NAME: TOSHIA PEREZ : 1985 AGE: 33Y DATE OF SURGERY: 08/23/2018 ROOM: OR PREOPERATIVE DIAGNOSIS: LEFT ECTOPIC . POSTOPERATIVE DIAGNOSIS: LEFT ECTOPIC . OPERATION: DIAGNOSTIC LAPAROSCOPY, LYSIS OF ADHESIONS, DISTAL PARTIAL LEFT SALPINGECTOMY. SURGEON: Anahy FLETCHER M.D. ESTIMATED BLOOD LOSS: Less than 10 mL. TISSUE REMOVED: Portion of the tube containing the ectopic. ANESTHESIA: General. PROCEDURE: The patient was placed in a dorsal lithotomy position, prepped and draped in sterile fashion. Speculum was placed. Cervix was grasped with a single-tooth tenaculum. Hulka tenaculum was placed. Single-tooth tenaculum was removed. Speculum was removed. Bladder was drained with a catheter. A subumbilical midline incision was made, trocar was introduced for insufflation of the abdomen. After introduction of the laparoscope, there were multiple adhesions of the omentum to the anterior abdominal wall, obscuring the pelvis. A second puncture was made lateral to the first, and a 5 was introduced, and a third suprapubically, and another 5 trocar was introduced. Using a harmonic scalpel, the omental adhesions were carefully dissected away from the anterior abdominal wall until the left adnexa could be visualized. There was evidence of distal edema of the tube on the left, presumed to be the ectopic, with extrusion of blood clot from the fimbriated end. Using the harmonic, the mesosalpinx was divided and this portion of the tube was removed. A Pleatman Sac was then placed in the abdomen and the tissue was removed. The pelvis was irrigated with normal saline. Hemostasis was noted. The laparoscope was removed and the abdomen deflated. Trocar sleeves removed. Subumbilical incision was closed with 0 Vicryl for the fascia and 4-0 subcu. The puncture wounds were closed using *------*. The patient tolerated the procedure well. She was taken to Recovery in good condition. DICTATING PHYSICIAN: Anahy FLETCHER M.D. [id number] PHY#: [id number] ID: [id number] JOB#: [id number] ACCT: [id number] cc:Anahy FLETCHER M.D. >
[2018-08-23] MEDS ORDERED: IBUPROFEN 800 MG TABLET PO SCH (22:00)
[2018-08-23] MEDS ORDERED: PROMETHAZINE HCL INJ 25 MG/1 ML VIAL IV PRN ×2 (22:29)
[2018-08-23] MEDS ORDERED: FENTANYL CITRATE INJ/PF 100 MCG/2 ML AMPUL IV PRN ×3 (22:29)
[2018-08-23] MEDS ORDERED: MEPERIDINE HCL/PF INJ 25 MG/1 ML DISP.SYRIN IV PRN (22:29)
[2018-08-23] MEDS ORDERED: DIPHENHYDRAMINE HCL 50 MG/ML VIAL IV PRN (22:29)
[2018-08-23] MEDS ORDERED: MORPHINE SULFATE 10 MG/ML INJ IV PRN (22:29)
[2018-08-23] MEDS ORDERED: ACETAMINOPHEN 1,000 MG/100 ML RTUPB IV ONE (23:01)
[2018-08-23] MEDS: FENTANYL CITRATE INJ/PF 100 MCG/2 ML AMPUL ONE ×2 (23:10→23:20)
[2018-08-23] MEDS ORDERED: DEXTROSE 5%-LACTATED RINGERS 1,000 ML IV PRN (23:33)
--- NOTE | 2018-08-23 23:39 | RADIOLOGY REPORT (SQ) ---
EXAM DESCRIPTION: XR ABDOMEN 1 VIEW (KUB) COMPLETED DATE/TME: 08/23/2018 23:04 CLINICAL HISTORY: 33 years Female ,EMERGENCY SURGERY ABDOMEN OPENED WITH NO COUNTS COMPARISON: None. TECHNIQUE: Single view of the abdomen was provided.. FINDINGS: No free intraperitoneal air is noted. No dilated loops of bowel to suggest obstruction. No abnormal calcifications noted. Catheter in the region of the urinary bladder. IMPRESSION: No acute plain film abnormality is identified.
[2018-08-24] MEDS: OXYCODONE-ACETAMINOPHEN 5-325 MG TABLET PO PRN ×3 (00:29→22:19)
--- NOTE | 2018-08-24 01:39 | OPERATIVE REPORT E ---
Operative Report NAME: TOSHIA PEREZ : 1985 AGE: 33Y DATE OF SURGERY: 08/23/2018 ROOM: 208 PREOPERATIVE DIAGNOSIS: SUSPECTED CYSTOTOMY. POSTOPERATIVE DIAGNOSIS: SUSPECTED CYSTOTOMY. OPERATION: Cystoscopy with open laparotomy and repair of cystotomy. SURGEON: Anahy FLETCHER M.D. ESTIMATED BLOOD LOSS: Less 10 mL. ANESTHESIA: General. TISSUE REMOVED OR ALTERED: No tissue was removed. PROCEDURE: The patient was placed in the dorsal lithotomy position, prepped and draped in sterile fashion. A cystoscope was placed and there was an approximately 2 cm hole in the dome of the bladder. Cystoscope was removed and attention turned to the abdomen where a Pfannenstiel incision was made. The incision extended through the subcutaneous tissue and fascia with sharp dissection. The fascia sharply divided. Rectus muscle bluntly and sharply divided. *------* veins with sharp dissection. The bowel was packed with wet saline packs. A Kath retractor was placed. The area of the cystotomy was identified and grasped with Allis clamps. The cystotomy then repaired using 3-0 Chromic the first a running stitch, the second imbricating the first, and the third imbricating the first 2. It appeared to be water tight. No other abnormalities were noted. The retractor was removed as were the wet packs. The fascia was closed with 0-Vicryl and the skin was closed with subcu absorbable mario alberto. She tolerated it well. Stable to recovery in good condition. DICTATING PHYSICIAN: Anahy FLETCHER M.D. [id number] Y#: [id number] ID: [id number] JOB#: [id number] ACCT: [id number] cc:Anahy FLETCHER M.D. >
[2018-08-24] MEDS: IBUPROFEN 800 MG TABLET PO SCH ×3 (06:10→21:31)
--- NOTE | 2018-08-24 06:54 | PDOC PROGRESS REPORT ---
Subjective Progress Note for:: 08/24/18 Subjective:: pt states she feels fine Reason For Visit: O36.80X0 W INCONCLUSIVE VIABILITY, Physical Exam - Physical Exam Vital Signs: Temp Pulse Resp BP Pulse Ox 98.7 F 92 18 135/86 H 99 08/24/18 03:35 08/24/18 03:35 08/24/18 03:35 08/24/18 03:35 08/24/18 03:35 Intake & Output 08/22/18 08/23/18 08/24/18 06:59 06:59 06:59 Intake Total 2800 Output Total 2270 Balance 530 Weight 117.7 kg General appearance: PRESENT: no acute distress Respiratory exam: PRESENT: clear to auscultation leonardo Cardiovascular exam: PRESENT: RRR GI/Abdominal exam: PRESENT: soft Result Laboratory Results: 08/23/18 17:37 08/23/18 17:37 WBC 12.3 H RBC 4.48 Hgb 12.8 Hct 38.1 MCV 85 MCH 28.7 MCHC 33.7 RDW 13.7 Plt Count 258 Impressions: KUB X-Ray 08/23/18 23:04 IMPRESSION: No acute plain film abnormality is identified. Assessment & Plan - Diagnosis (1) Ectopic , tubal Is this a current diagnosis for this admission?: Yes (2) cystotomy Is this a current diagnosis for this admission?: Yes - Plan Summary Plan Summary: routine post care
[2018-08-24] MEDS: NITROFURANTOIN MONOHYD/M-CRYST 100 MG CAPSULE PO SCH (10:56)
[2018-08-25] MEDS: IBUPROFEN 800 MG TABLET PO SCH (06:36)
[2018-08-25] MEDS: OXYCODONE-ACETAMINOPHEN 5-325 MG TABLET PO PRN (09:32)
[2018-08-25] MEDS: NITROFURANTOIN MONOHYD/M-CRYST 100 MG CAPSULE PO SCH (09:34)
--- NOTE | 2018-08-25 09:41 | PDOC DISCHARGE SUMMARY ---
General - Admit/Disc Date/PCP Admission Date/Primary Care Provider: RAMIRO SCHULZ MD Discharge Date: 08/25/18 - Discharge Diagnosis (1) Ectopic , tubal Is this a current diagnosis for this admission?: Yes (2) cystotomy Is this a current diagnosis for this admission?: Yes - Additional Information Discharge Diet: As Tolerated Discharge Activity: No Lifting Over 10 Pounds, Slowly Increase Activity, No tub bath, Walk Frequently Home Medications: No Home Medications 08/24/18 History of Present Illness History of Present Illness: TOSHIA PEREZ is a 33 year old female Hospital Course Hospital Course: pt admitted for left ectopic and had laparoscopic partial left salpingectomy. post op pt suspected of cystoscopy and had exploratory laparotomy wth cystotomy repair. post op benign course and day of discharge afebrile and tolerating regular diet Physical Exam - Physical Exam Vital Signs: Temp Pulse Resp BP Pulse Ox 97.4 F 83 16 114/57 L 99 08/25/18 07:44 08/25/18 07:44 08/25/18 07:44 08/25/18 07:44 08/25/18 07:44 Intake & Output 08/24/18 08/25/18 08/26/18 06:59 06:59 06:59 Intake Total 2800 1170 Output Total 2270 2250 Balance 530 -1080 Weight 117.7 kg General appearance: PRESENT: no acute distress Cardiovascular exam: PRESENT: RRR GI/Abdominal exam: PRESENT: soft Result Laboratory Results: 08/23/18 17:37 Impressions: KUB X-Ray 08/23/18 23:04 IMPRESSION: No acute plain film abnormality is identified. Plan Discharge Plan: discharge with indwelling catheter and f/u 1 week Acute Heart Failure - Is this a Heart Failure Patient?: No
[2018-08-25 10:06] VITALS: BP 143/68
== END 2018-08-25 11:15 | disposition home or self-care (01) ==
LOC: OROUT 16:48 → EDSTATUS 17:30 → 2N 08-24 00:07 → OROUT 08-25 11:15
PROVIDERS: ATTEND Obstetrics & Gynecology Gynecology
DX: O00.102 Left tubal pregnancy without intrauterine pregnancy (principal); K66.0 Peritoneal adhesions (postprocedural) (postinfection); N83.8 Other noninflammatory disorders of ovary, fallopian tube and broad ligament; N99.71 Accidental puncture and laceration of a genitourinary system organ or structure during a genitourinary system procedure; T88.8XXA Other specified complications of surgical and medical care, not elsewhere classified, initial encounter; Y92.238 Other place in hospital as the place of occurrence of the external cause; E66.9 Obesity, unspecified; R10.2 Pelvic and perineal pain; Z88.0 Allergy status to penicillin; Z68.38 Body mass index [BMI] 38.0-38.9, adult; Z79.899 Other long term (current) drug therapy
CPT/HCPCS: 36415; 85027; 88305 ×2; 74018; 00840; 59151; 51860; J2250; J0690; J3490 ×7; J1100; J3010; J2270; J2710; J0330; J2405; S0020; J7121; J2704; J0131; 840; J8499